=== PATIENT | female | born 1955 | race Caucasian/White ===

== ENCOUNTER → 2016-09-02 | Outpatient (CLI) | payer OTHER ==
[~2016-09-02] VITALS: Ht 162.6 cm; Wt 129.3 kg
[~2016-09-02] MED LIST: AUGMENTIN 500-1 EACH PO; AUGMENTIN 875875 MG PO; BETHANECHOL CHL50 MG PO; CEFTIN 250 MG250 MG PO; CELEXA 10 MG TA10 M1 PO; CYCLOBENZAPRINE5 MG PO; CYMBALTA60 MG PO; DILAUDID1 MG/1 ML IV PUSH; DOXYCYCLINE 10100 M2 PO; DUONEB 2.5-0.5 M3 ML INH; ENOXAPARIN40 MG/0.1 SUBQ; FLEXERIL PO; IRON325 PO; KEFLEX500 MG PO; KLONOPIN0.5 MG PO; KLOR-CON 1010 MEQ PO; LEVAQUIN 500 M500 M2 PO; LEVAQUIN PO; LYRICA 75 MG CA75 MG PO; MAG-OXIDE400 MG PO; METHADONE HCL 110 M1 PO; METHADONE HCL 110 MG PO; NORCO 5-325 TA1 EACH PO; ONDANSETRON HCL4 M2 PO; OXECTA5 MG PO; OXYCODONE HCL 55 MG PO; OXYCONTIN20 M1 PO; PENICILLIN VK250 MG PO; PERCOCET 5-3251 EACH PO; PERCOCET 7.5-31 EACH PO; PREDNISOLONE 5 M5 M1 PO; PREDNISONE 20 M20 M1 PO; PREDNISONE 5 MG5 M1 PO; PREDNISONE 5 MG5 MG PO; PROBIOTIC1 EAC1 PO; RITUXIMAB; TREANDA; TYLENOL325 MG PO; XANAX 0.25 MG0.25 MG PO; XANAX1 MG PO; [UNRECOGNIZED DRUG - OTHER]
--- NOTE | ~2016-09-02 | S ---
[facility] [place] [address] SURGICAL PATH RPT PROCEDURE Name: ROSA SCHAEFFER Room #: REG [facility] Pat.#: [id number] Admission: 09/02/16 Date of : 53 Discharge: Report #: [id number] Path Case #: [id number] PATHOLOGY REPORT COLLECTION DATE: 09/02/2016 RECEIVED DATE: 09/02/2016 SUBMITTING PHYS: Dr. Gabino Crowell OTHER PHYS: Dr. Mathew Munoz SPECIMEN(S) RECEIVED: A.Small bowel bx (forcep) B.Bx-gastritis (forcep) C.Polyp at prox ascending colon (snare) D.Rectal polyp * * * * * * * * * * * * FINAL DIAGNOSIS: A. Small bowel mucosa, small bowell, endoscopic biopsy: - Focal active inflammation along with fundic-type metaplasia, compatible with mild focal peptic duodenitis. - Negative for villous blunting, increase in intraepithelial lymphocytosis or dysplasia. B. Gastric mucosa, gastritis, endoscopic biopsy: - Mild chronic gastritis. - Negative for intestinal metaplasia or atrophy. - Negative for Helicobacter pylori. C. Polyp, at proximal ascending colon, endoscopic biopsy: - Tubular adenoma. - Negative for high grade dysplasia. D. Polyp, rectal polyp, endoscopic biopsy: - Hyperplastic polyp. - Negative for dysplasia. COMMENT: Helicobacter pylori immunohistochemical stain performed on block B1 - negative. (IUV:pit; 09/05/2016) PATHOLOGIST: Lizabeth Page M.D. REPORT ELECTRONICALLY SIGNED BY: Lizabeth Page M.D. DATE/TIME: 09/05/2016 16:10 * * * * * * * * * * * * GROSS PATHOLOGY: A. Received in formalin labeled "Rosa Schaeffer, small bowel biopsy," are 4 segments of yanes soft tissue measuring 1.0 x 0.4 x 0.2 cm in [facility] [address] [place] [address] SURGICAL PATH RPT PROCEDURE Name: ROSA SCHAEFFER [id number] Admission: 09/02/16 Date of : 53 Discharge: Report #: [id number] Path Case #: [id number] aggregate dimensions and ranging from 0.2 to 0.5 cm in maximum dimension. The specimen is submitted entirely in cassette A1. B. Received in formalin labeled "Rosa Schaeffer, biopsy gastritis," are 5 segments of yanes soft tissue measuring 1.1 x 0.3 x 0.2 cm in aggregate dimensions and ranging from 0.2 to 0.5 cm in maximum dimension. The specimen is submitted entirely in cassette B1. C. Received in formalin labeled "Rosa Schaeffer, polyp at proximal ascending colon," is a segment of yanes soft tissue measuring 0.6 cm in maximum dimension. The specimen is submitted entirely in cassette C1. D. Received in formalin labeled "Rosa Schaeffer, rectal polyp," is a segment of yanes soft tissue measuring 0.5 cm in maximum dimension. The specimen is submitted entirely in cassette D1. (KAH; 09/03/2016) CLINICAL HISTORY: Pre-op diagnosis: Abdominal pain, history of lupus, sarcoidosis Post-op diagnosis: Gastritis, colon polyp, rectal polyp, diverticulosis INITIAL CPT CODE(S): A; 42501 B; 57467, 28823 C; 51504 D; 45228 Professional services performed by [facility] at [facility] [address], [place] [address] Technical services performed by [employer] at [address] [place] [address], [address], [place] [address]. [facility] [address] [place] [address] PHONE: [phone] DIRECTOR: Rob Edwards M.D. * * * END OF REPORT * * *
== END ==
LOC: GI 06:44
DX: K62.5 Hemorrhage of anus and rectum (principal); D12.2 Benign neoplasm of ascending colon; K29.70 Gastritis, unspecified, without bleeding; D12.8 Benign neoplasm of rectum; K57.30 Diverticulosis of large intestine without perforation or abscess without bleeding; Z80.0 Family history of malignant neoplasm of digestive organs; D86.9 Sarcoidosis, unspecified
CPT/HCPCS: 62110; 62900

== ENCOUNTER 2016-10-04 19:57 | Inpatient (IN) | payer OTHER ==
[~2016-10-04] VITALS: Ht 162.6 cm; Wt 136.1 kg
--- NOTE | ~2016-10-04 | HC ---
[facility] [place] [address] CONSULTATION Name: FRANCOIS LUGO Room #: 450-P [facility] IN M.R.#: [id number] Admission: 10/04/16 Attend Phys: Gerardo Rodríguez MD Discharge: 10/06/16 Date of : 53 Report #: [id number] THIS REPORT FOR: //name// CC: Gerardo Carmona Box REASON FOR CONSULTATION: Pneumonia. IMPRESSION: 1. Pneumonia, healthcare associated. 2. Acute hypoxemic respiratory failure. 3. History of asthma. 4. Obstructive sleep apnea, intolerant to CPAP. 5. History of gastroesophageal reflux disease. 6. History of lupus and non-Hodgkin lymphoma. PLAN: Agree with current therapy, PT, OT, may try her on BiPAP again tonight. Agree with antibiotics and corticosteroids. HISTORY OF PRESENT ILLNESS: A 60-year-old female with history of sarcoid, asthma, ADRIAN, lupus, pulmonary hypertension, comes in with shortness of breath, cough and fever, had been treated with antibiotics; however, not improved. No sputum production, has had trouble with pain pumps as was a patient of Dr. Qureshi in the past. PRIOR MEDICATIONS: Included alprazolam, prednisone, bethanechol, cyclobenzaprine, and oxycodone. PAST SURGICAL HISTORY: Include right lumpectomy, hysterectomy in , Non-Hodgkin's lymphoma stage IV, cervical fusion, pain pump installation, oophorectomy in 2013. REVIEW OF SYSTEMS: Includes sarcoid lymphoma, pulmonary hypertension, asthma, ADRIAN, lupus, fibromyalgia, Raynaud's, depression, anxiety, panic, GERD, hiatal hernia, and chronic pain. ALLERGIES: VERSED. SOCIAL HISTORY: Negative tobacco, ETOH. PHYSICAL EXAMINATION: VITAL SIGNS: Temperature 98.1, pulse 90, respirations 20, BP 96/57. EYES: Negative icterus. NECK: Negative JVD. Thyroid not enlarged. LUNGS: Grossly clear. HEART: Regular. ABDOMEN: Bowel sounds present. [facility] [address] [place] [address] CONSULTATION Name: FRANCOIS LUGO Room #: [facility] IN [facility].#: [id number] Admission: 10/04/16 Attend Phys: Gerardo Rodríguez MD Discharge: 10/06/16 Date of : 53 Report #: [id number] EXTREMITIES: Showed no edema. LABORATORY DATA: Blood cultures negative thus far. Sputum negative. A pH 7.35, pCO2 of 51, pO2 of [address] PE protocol showed bilateral infiltrates. We will follow closely with you. <ELECTRONICALLY SIGNED> By: Jamin Felix MD 10/10/16 1914 [id number] 4425 Jamin Felix MD /nt
--- NOTE | ~2016-10-04 | EKG ---
[address] [place] [place] [address] ELECTROCARDIOGRAM REPORT Name: FRANCOIS LUGON Room #: 450-P ADM IN M.R.#: [id number] Admission: 10/04/16 Attend Phys: Gerardo Rodríguez MD Discharge: Date of : 53 Report #: [id number] THIS REPORT FOR: //name// [facility] ED Test Date: 2016-10-04 Test Time: 20:35:55 Pat Name: FRANCOIS LUGO Department: Room: [facility] Gender: F Process Validation Engineer: [id number] : 1955 Requested By: Avinash Lance Order Number: [id number] MD: Cliff Olson Measurements Intervals [place] Rate: 115 P: 51 NE: 151 QRS: 1 QRSD: 87 T: 15 QT: 323 QTc: 447 Interpretive Statements Sinus tachycardia Poor precordial R-wave progression Compared to ECG 08/17/2015 16:03:16 No significant change was found Electronically Signed On 10-05-2016 18:23:19 CDT by Cliff Olson [email or web address] <ELECTRONICALLY SIGNED> By: Cliff Olson MD, [facility] 10/05/16 1823 34 34 Cliff Olson MD, [facility] /EPI
[2016-10-04 20:08] VITALS: BP 131/71
[2016-10-04 20:37] LABS: HEMATOCRIT 37.5 % (37.0-47.0); HEMOGLOBIN 12.2 gm/dL (12.0-15.0); MCH 24.7 pg (26.0-34.0); MCHC 32.4 g/dL (28.0-37.0); MCV 76.2 fL (80.0-100.0); PLATELET COUNT 131 thou/uL (150-400); RBC 4.93 mil/uL (4.20-5.00); RDW 16.2 % (10.5-14.5); WBC 6.3 thou/uL (4.0-11.0)
[2016-10-04 20:38] LABS: MANUAL DIFF YES
[2016-10-04 20:44] LABS: ANION GAP 1 mmol/L (7-16); BUN 14 mg/dL (7-18); CALCIUM 9.1 mg/dL (8.5-10.1); CHLORIDE 99 mmol/L (98-107); CO2 39 mmol/L (21-32); CREATININE 0.9 mg/dL (0.6-1.0); GLUCOSE 120 mg/dL (74-106); POTASSIUM 4.1 mmol/L (3.5-5.1); SODIUM 139 mmol/L (136-145)
[2016-10-04 20:54] LABS: ALBUMIN 3.3 g/dL (3.4-5.0); ALKALINE PHOSPHATASE 210 U/L (46-116); SGOT 49 U/L (15-37); SGPT 29 U/L (30-65); TOTAL PROTEIN 7.5 g/dL (6.4-8.2); TROPONIN-I < 0.04 ng/mL (<0.04-0.07)
[2016-10-04 21:08] LABS: ABSOLUTE NEUTROPHILS 5.2 thou/uL (1.4-8.2); LARGE PLATELETS FEW; TOTAL CELL COUNT 100
[2016-10-04 21:09] LABS: ANISOCYTOSIS SLIGHT
[2016-10-04 21:24] LABS: ABG SAMPLE TYPE ARTERIAL; BE(vivo) 5.3 mmol/L (-2 to +3); HCO3 30.8 mmol/L (22.0-26.0); LACTATE 1.97 mmol/L (0.5-2.0); O2(CT) 15.9 mL/dL (15.0-23.0); O2Hb 86.8 % (92.0-98.0); PCO2 48.5 mmHg (35.0-45.0); sO2 87.7 % (92.0-98.0); tCO2 32.2 mmol/L (24.0-30.0)
[2016-10-04 21:25] LABS: PO2 52.9 mmHg (80.0-100.0); STICK SITE L.RADIAL
[2016-10-04 21:46] LABS: URINE BILIRUBIN NEGATIVE (Negative); URINE BLOOD NEGATIVE (Negative); URINE COLOR YELLOW; URINE GLUCOSE-RANDOM* NEGATIVE (Negative); URINE KETONES NEGATIVE (Negative); URINE LEUKOCYTES-REFLEX NEGATIVE (Negative); URINE PROTEIN (DIPSTICK) TRACE (Negative)
[2016-10-04 23:39] VITALS: BP 123/54
[2016-10-05 00:33] VITALS: BP 127/59
[2016-10-05 04:26] VITALS: BP 131/63
[2016-10-05 07:07] VITALS: BP 140/71
[2016-10-05 07:34] LABS: ABG SAMPLE TYPE ARTERIAL; BE(vivo) 1.5 mmol/L (-2 to +3); HCO3 27.8 mmol/L (22.0-26.0); LACTATE 1.43 mmol/L (0.5-2.0); O2(CT) 17.7 mL/dL (15.0-23.0); O2Hb 95.5 % (92.0-98.0); PCO2 51.1 mmHg (35.0-45.0); PO2 90.8 mmHg (80.0-100.0); pH 7.354 (7.360-7.450); sO2 96.5 % (92.0-98.0); tCO2 29.4 mmol/L (24.0-30.0)
[2016-10-05 07:35] LABS: STICK SITE R.RADIAL
[2016-10-05 11:17] VITALS: BP 107/47
[2016-10-05 15:27] VITALS: BP 96/57
[2016-10-05 19:44] VITALS: BP 99/58
[2016-10-06 01:30] VITALS: BP 113/52
[2016-10-06 03:49] VITALS: BP 144/72
[2016-10-06 06:13] LABS: HEMATOCRIT 31.2 % (37.0-47.0); HEMOGLOBIN 10.3 gm/dL (12.0-15.0); MCHC 32.9 g/dL (28.0-37.0); MCV 76.1 fL (80.0-100.0); RBC 4.1 mil/uL (4.20-5.00); RDW 16.6 % (10.5-14.5); WBC 4.2 thou/uL (4.0-11.0)
[2016-10-06 06:33] LABS: ALBUMIN 2.4 g/dL (3.4-5.0); CREATININE 0.9 mg/dL (0.6-1.0); POTASSIUM 3.3 mmol/L (3.5-5.1); TOTAL BILIRUBIN 1.1 mg/dL (<0.1-1.0)
[2016-10-06 07:11] VITALS: BP 138/70
[2016-10-06] MEDS ORDERED: OXYCODONE HCL 55 MG PO (09:24)
[2016-10-06] MEDS ORDERED: PREDNISONE 20 M20 M1 PO (09:25)
[2016-10-06] MEDS ORDERED: AUGMENTIN 875875 MG PO (09:26)
[2016-10-06 11:42] VITALS: BP 118/60
[2016-10-06 15:06] VITALS: BP 118/60
[2016-10-11 22:09] LABS: INFLUENZA B Negative (Negative); METAPNEUMOVIRUS Negative (Negative)
== END 2016-10-06 16:31 | disposition home or self-care (01) | DRG 177 ==
LOC: ER 19:57 → 4W 23:05 → EROBS 23:05 → 4W 10-05 00:02
PROVIDERS: Internal Medicine Pulmonary Disease; Nurse Practitioner Family; Physician Assistant
PROC: 5A09457 Assistance with Respiratory Ventilation, 24-96 Consecutive Hours, Continuous Positive Airway Pressure (ICD-10-PCS; principal; 2016-10-04)
DX: J69.0 Pneumonitis due to inhalation of food and vomit (principal); J96.01 Acute respiratory failure with hypoxia; Z68.43 Body mass index [BMI] 50.0-59.9, adult; I27.2 Other secondary pulmonary hypertension; M32.9 Systemic lupus erythematosus, unspecified; D86.9 Sarcoidosis, unspecified; J45.909 Unspecified asthma, uncomplicated; M79.7 Fibromyalgia; F32.9 Major depressive disorder, single episode, unspecified; F41.0 Panic disorder [episodic paroxysmal anxiety]; K21.9 Gastro-esophageal reflux disease without esophagitis; E66.9 Obesity, unspecified; G47.33 Obstructive sleep apnea (adult) (pediatric); Z85.3 Personal history of malignant neoplasm of breast; Z99.81 Dependence on supplemental oxygen; Z85.42 Personal history of malignant neoplasm of other parts of uterus; Z85.72 Personal history of non-Hodgkin lymphomas; Z90.710 Acquired absence of both cervix and uterus; Z88.8 Allergy status to other drugs, medicaments and biological substances; Z79.52 Long term (current) use of systemic steroids; Z79.899 Other long term (current) drug therapy; Z98.1 Arthrodesis status; Z90.721 Acquired absence of ovaries, unilateral
CPT/HCPCS: 10045

== ENCOUNTER 2016-11-20 19:54 | Emergency (ER) | payer OTHER ==
[~2016-11-20] VITALS: Ht 162.6 cm; Wt 140.6 kg
--- NOTE | ~2016-11-20 | EKG ---
[address] [address] ELECTROCARDIOGRAM REPORT Name: FRANCOIS LUGO [id number] Admission: 11/20/16 Attend Phys: Discharge: 11/20/16 Date of : 53 Report #: [id number] THIS REPORT FOR: //name// [facility] ED Test Date: 2016-11-20 Test Time: 21:29:25 Pat Name: FRANCOIS LUGO Department: Room: Gender: F Lamp Shades Supervisor: LUCIA : 1955 Requested By: Paul Rajan Order Number: [id number] MD: Ernst Merino Measurements Intervals [place] Rate: 105 P: 50 [place]: 151 QRS: 25 QRSD: 92 T: 10 QT: 351 QTc: 465 Interpretive Statements Sinus tachycardia Compared to ECG 10/04/2016 20:35:55 No significant changes Electronically Signed On 11-21-2016 14:04:49 CDT by Ernst Merino [email or web address] <ELECTRONICALLY SIGNED> By: Ernst Merino MD 11/21/16 1404 2129 28 Ernst Merino MD /VIOLETA
[2016-11-20 20:53] LABS: HEMATOCRIT 31.6 % (37.0-47.0); HEMOGLOBIN 10.5 gm/dL (12.0-15.0); MCH 25.3 pg (26.0-34.0); MCHC 33.4 g/dL (28.0-37.0); MCV 75.8 fL (80.0-100.0); PLATELET COUNT 141 thou/uL (150-400); RBC 4.17 mil/uL (4.20-5.00); RDW 17.7 % (10.5-14.5); WBC 5.2 thou/uL (4.0-11.0)
[2016-11-20 20:58] LABS: MANUAL DIFF YES
[2016-11-20 20:59] LABS: ANION GAP 1 mmol/L (7-16); BUN 7 mg/dL (7-18); CALCIUM 9.1 mg/dL (8.5-10.1); CHLORIDE 99 mmol/L (98-107); CO2 37 mmol/L (21-32); CREATININE 0.9 mg/dL (0.6-1.0); GLUCOSE 123 mg/dL (74-106); POTASSIUM 4.1 mmol/L (3.5-5.1); SODIUM 137 mmol/L (136-145)
[2016-11-20 21:07] LABS: ALBUMIN 3.1 g/dL (3.4-5.0); ALKALINE PHOSPHATASE 166 U/L (46-116); MAGNESIUM 1.9 mg/dL (1.8-2.4); SGOT 26 U/L (15-37); SGPT 20 U/L (30-65); TOTAL BILIRUBIN 0.7 mg/dL (<0.1-1.0); TROPONIN-I < 0.04 ng/mL (<0.04-0.07)
[2016-11-20 21:18] LABS: ABSOLUTE NEUTROPHILS 4.3 thou/uL (1.4-8.2); ANISOCYTOSIS 1+; TOTAL CELL COUNT 100
[2016-11-20] MEDS ORDERED: LEVAQUIN 500 M500 M1 PO (21:59)
[2016-11-20] MEDS ORDERED: PREDNISONE 20 M20 MG PO (21:59)
== END 2016-11-20 22:43 | disposition home or self-care (01) ==
LOC: ER 19:54
PROVIDERS: Emergency Medicine
DX: J44.0 Chronic obstructive pulmonary disease with (acute) lower respiratory infection (principal); J20.9 Acute bronchitis, unspecified; K21.9 Gastro-esophageal reflux disease without esophagitis; F41.9 Anxiety disorder, unspecified; F31.9 Bipolar disorder, unspecified; M32.9 Systemic lupus erythematosus, unspecified; I27.2 Other secondary pulmonary hypertension; Z85.3 Personal history of malignant neoplasm of breast; Z85.42 Personal history of malignant neoplasm of other parts of uterus; Z90.710 Acquired absence of both cervix and uterus; Z88.4 Allergy status to anesthetic agent

== ENCOUNTER 2016-12-18 18:27 | Inpatient (IN) | payer OTHER ==
[~2016-12-18] VITALS: Ht 162.6 cm; Wt 139.4 kg
--- NOTE | ~2016-12-18 | EKG ---
[address] [address] ELECTROCARDIOGRAM REPORT Name: BRITTNEYNERISSA MORELASHVIN GODFREY Room #: 170-11 ADM IN M.R.#: [id number] Admission: 12/18/16 Attend Phys: Gerardo Rodríguez MD Discharge: Date of : 53 Report #: [id number] THIS REPORT FOR: //name// [facility] ED Test Date: 2016-12-18 Test Time: 19:13:10 Pat Name: FRANCOIS LUGO Department: Room: 170 Gender: F Spine Surgeon: ANANDA : 1955 Requested By: Paul Rajan Order Number: [id number] MD: Ernst Merino Measurements Intervals [place] Rate: 112 P: 43 [place]: 140 QRS: 11 QRSD: 90 T: 17 QT: 327 QTc: 447 Interpretive Statements Sinus tachycardia Compared to ECG 11/20/2016 21:29:25 No significant changes Electronically Signed On 12-18-2016 20:41:57 CDT by Ernst Merino [email or web address] <ELECTRONICALLY SIGNED> By: Ernst Merino MD 12/18/162040 12 12 Ernst Merino MD /VIOLETA
[~2016-12-18 18:27] MED LIST changes: +LEVAQUIN 500 M500 M1 PO; +PREDNISONE 20 M20 MG PO
[2016-12-18 18:38] VITALS: BP 157/91
[2016-12-18 19:30] LABS: RDW 16.5 % (10.5-14.5)
[2016-12-18 19:32] LABS: HEMATOCRIT 34.3 % (37.0-47.0); HEMOGLOBIN 11.2 gm/dL (12.0-15.0); MCH 24.6 pg (26.0-34.0); MCHC 32.7 g/dL (28.0-37.0); MCV 75.4 fL (80.0-100.0); PLATELET COUNT 133 thou/uL (150-400); RBC 4.55 mil/uL (4.20-5.00)
[2016-12-18 19:34] LABS: MANUAL DIFF YES
[2016-12-18 19:43] LABS: ANION GAP 3 mmol/L (7-16); BUN 10 mg/dL (7-18); CALCIUM 9.3 mg/dL (8.5-10.1); CHLORIDE 97 mmol/L (98-107); CO2 37 mmol/L (21-32); CREATININE 0.8 mg/dL (0.6-1.0); GLUCOSE 134 mg/dL (74-106); POTASSIUM 4.3 mmol/L (3.5-5.1); SODIUM 137 mmol/L (136-145)
[2016-12-18 19:49] LABS: URINE BILIRUBIN NEGATIVE (Negative); URINE BLOOD NEGATIVE (Negative); URINE COLOR YELLOW; URINE GLUCOSE-RANDOM* NEGATIVE (Negative); URINE KETONES NEGATIVE (Negative); URINE LEUKOCYTES-REFLEX NEGATIVE (Negative); URINE PROTEIN (DIPSTICK) TRACE (Negative); URINE SPECIFIC GRAVITY 1.015 (1.003-1.035)
[2016-12-18 19:52] LABS: ALBUMIN 3.2 g/dL (3.4-5.0); ALKALINE PHOSPHATASE 164 U/L (46-116); MAGNESIUM 1.9 mg/dL (1.8-2.4); SGOT 41 U/L (15-37); SGPT 21 U/L (30-65); TOTAL BILIRUBIN 0.8 mg/dL (<0.1-1.0); TOTAL PROTEIN 6.9 g/dL (6.4-8.2); TROPONIN-I < 0.04 ng/mL (<0.04-0.07)
[2016-12-18 20:07] LABS: SSA (PROTEIN CONFIRMATORY) TRACE (APPROX. 5) mg/dL (Negative)
[2016-12-18 20:19] LABS: ABSOLUTE NEUTROPHILS 4.2 thou/uL (1.4-8.2); ANISOCYTOSIS SLIGHT; LARGE PLATELETS OCCASIONAL; POIKILOCYTOSIS SLIGHT; TOTAL CELL COUNT 100
[2016-12-18 20:58] VITALS: BP 121/53
[2016-12-18 21:06] LABS: ABG SAMPLE TYPE VENOUS; BE(vivo) 6.4 mmol/L (-2 to +3); HCO3 31.4 mmol/L (22.0-26.0); LACTATE 2.03 mmol/L (0.5-2.0); O2(CT) 16.2 mL/dL (15.0-23.0); O2Hb VENOUS 96.1 (65.0-85.0); PCO2 VENOUS 46.7 mmHg (41.0-51.0); PO2 VENOUS 170.1 mmHg (35.0-45.0); sO2 VENOUS 99.2 % (65.0-85.0); tCO2 32.8 mmol/L (24.0-30.0)
[2016-12-18 22:40] VITALS: BP 134/60
[2016-12-19 00:05] VITALS: BP 113/64
[2016-12-19 01:15] LABS: HEMATOCRIT 32.2 % (37.0-47.0); HEMOGLOBIN 10.5 gm/dL (12.0-15.0); MCH 24.6 pg (26.0-34.0); MCHC 32.6 g/dL (28.0-37.0); MCV 75.3 fL (80.0-100.0); RBC 4.27 mil/uL (4.20-5.00); RDW 16.6 % (10.5-14.5); WBC 3.5 thou/uL (4.0-11.0)
[2016-12-19 01:21] LABS: CALCIUM 8.9 mg/dL (8.5-10.1); CREATININE 0.9 mg/dL (0.6-1.0); POTASSIUM 3.9 mmol/L (3.5-5.1)
[2016-12-19 05:00] VITALS: BP 122/61
[2016-12-19 08:22] VITALS: BP 133/55
[2016-12-19] MEDS ORDERED: LEVAQUIN 500 M500 M2 PO (09:13)
[2016-12-19] MEDS ORDERED: MEDROL DOSPAK21 TA1 PO (09:13)
[2016-12-19] MEDS ORDERED: PNEUMOVAX25 MCG/0.5 IM (10:15)
[2016-12-19 10:44] VITALS: BP 133/55
== END 2016-12-19 12:00 | disposition home or self-care (01) | DRG 871 ==
LOC: ER 18:27 → 3W 20:33 → EROBS 20:33 → 3W 21:12 → ENTRNSPT 12-19 11:47 → EDTRNSPTSTS 12-19 11:52 → 3W 12-19 12:00
PROVIDERS: Emergency Medicine; Nurse Practitioner Family
DX: A41.9 Sepsis, unspecified organism (principal); J18.9 Pneumonia, unspecified organism; J44.0 Chronic obstructive pulmonary disease with (acute) lower respiratory infection; E87.2 Acidosis; C85.90 Non-Hodgkin lymphoma, unspecified, unspecified site; M32.9 Systemic lupus erythematosus, unspecified; I27.20 Pulmonary hypertension, unspecified; F32.9 Major depressive disorder, single episode, unspecified; F41.9 Anxiety disorder, unspecified; F41.0 Panic disorder [episodic paroxysmal anxiety]; K21.9 Gastro-esophageal reflux disease without esophagitis; G89.4 Chronic pain syndrome; M79.7 Fibromyalgia; G47.33 Obstructive sleep apnea (adult) (pediatric); Z79.899 Other long term (current) drug therapy; Z88.8 Allergy status to other drugs, medicaments and biological substances
CPT/HCPCS: 10080

== ENCOUNTER 2017-02-20 09:49 | Inpatient (IN) | payer OTHER ==
[~2017-02-20] VITALS: Ht 162.6 cm; Wt 138.8 kg
--- NOTE | ~2017-02-20 | CNG ---
[facility] [address] [place] [address] CYTO-NONGYN REPORT PROCEDURE Name: ROSA SCHAEFFERN Room #: 428-P ADM IN M.R.#: [id number] Admission: 02/20/17 Date of : 53 Discharge: Report #: [id number] Path Case #: [id number] CYTOPATHOLOGY REPORT COLLECTION DATE: 02/20/2017 RECEIVED DATE: 02/21/2017 SUBMITTING PHYS: Dr. Jamin Felix OTHER PHYS: Dr. Rohit Munoz CLINICAL HISTORY: Acute on chronic respiratory failure SPECIMEN(S) RECEIVED: A.Sputum * * * * * * * * * * * * FINAL DIAGNOSIS: A. Sputum: - No malignant cells identified. Few pulmonary macrophages in the background of inflammatory cells. PATHOLOGIST: Robi Marie M.D. REPORT ELECTRONICALLY SIGNED BY: Robi Marie M.D. DATE/TIME: 02/22/2017 11:19 * * * * * * * * * * * * GROSS PATHOLOGY: A. Sputum: The specimen is submitted unfixed, labeled "Rosa Schaeffer". Received by the Cytology Department is less than .05 mL of thick cloudy colorless fluid. One ThinPrep slide was prepared. ([id number]) ELECTRIC LOCOMOTIVE CRANE OPERATOR(S): FUAD Gutierrez(ASCP) INITIAL CPT CODE(S): A; 66664 Professional services performed by [facility] at [facility] [address], [place] [address] Technical services performed by [employer], [address], [place] [address] [facility] [address], [address] [place] [address] [facility] [address] [place] [address] CYTO-NONGYN REPORT PROCEDURE Name: ROSA SCHAEFFER Room #: 428-P ADM IN M.R.#: [id number] Admission: 02/20/17 Date of : 53 Discharge: Report #: [id number] Path Case #: [id number] PHONE: [phone] DIRECTOR: Rob Edwards M.D. * * * END OF REPORT * * *
--- NOTE | ~2017-02-20 | HC ---
[facility] [place] [address] CONSULTATION Name: FRANCOIS LUGO Room #: 428-P [facility] IN M.R.#: [id number] Admission: 02/20/17 Attend Phys: Rohit Mcmullen DO Discharge: Date of : 53 Report #: [id number] THIS REPORT FOR: //name// CC: Rohit Munoz DATE OF SERVICE: 02/20/2017 HISTORY OF PRESENT ILLNESS: The patient is a 61-year-old white woman evaluated in the emergency room on the date of admission with a history of increasing shortness of breath and abnormal chest x-rays revealing increasing right pulmonary infiltrate. The patient reported having some trouble breathing 3-4 days prior to admission and some cough, actually now productive of some sputum. The patient recently treated for pneumonia, undetermined organism in an immunosuppressed host, she was advised to be on treatment with Bactrim-DS 2 tablets t.i.d. for a total of 14-21 days. She tells me the pharmacist told her to take Bactrim-DS 1 b.i.d. At present, no nausea, vomiting, diarrhea, or genitourinary symptoms. PAST MEDICAL HISTORY: Right breast cancer, lumpectomy. Uterine cancer, hysterectomy in 1986. Non-Hodgkin lymphoma, on chemotherapy, on remission, and receiving Rituxan. Sarcoidosis. Pulmonary hypertension. Bronchial asthma. Autoimmune process undetermined etiology, being followed by Dr. Munoz. Obstructive sleep apnea. Fibromyalgia. Depression, anxiety. Morbid obesity. DRUG ALLERGIES: VERSED. MEDICATIONS: She is currently on treatment with bethanechol, budesonide, enoxaparin, cyclobenzaprine, pregabalin, meropenem 500 mg IV every 6 hours, Levaquin 500 mg IV daily, I discontinued Bactrim DS and oral prednisone, she is on methylprednisolone 40 mg IV every 8 hours. She is also on albuterol inhalation treatments, p.r.n. oxycodone and p.r.n. alprazolam. SOCIAL HISTORY: See H and P, old records. FAMILY HISTORY: See H and P, old records. REVIEW OF SYSTEMS: Essentially noncontributory besides what has been stated above. PHYSICAL EXAMINATION: GENERAL: Overweight woman, not toxic looking. VITAL SIGNS: Afebrile, temperature 98.8, pulse 109, respirations 24, BP 161/96, height 5 feet 4 inches, weight 306 pounds, O2 saturation 96% on 3 liters oxygen nasal cannula. HEENMT: Head normocephalic, atraumatic. Pupils are reactive. Mouth, no [address] [address] CONSULTATION Name: FRANCOIS LUGO Room #: [facility] IN M.R.#: [id number] Admission: 02/20/17 Attend Phys: Rohit Mcmullen DO Discharge: Date of : 53 Report #: [id number] thrush. NECK: Supple. No thyromegaly. LUNGS: Decreased breath sounds, few crackles, right lung base posteriorly. HEART: S1, S2. No gallop or murmur. ABDOMEN: Obese, soft, no masses or megaly, no abnormal tenderness. PELVIC: Deferred. RECTAL: Deferred. EXTREMITIES: No clubbing or cyanosis. NEUROLOGIC: Grossly within normal limits. LABORATORY DATA: Sodium 138, potassium 4.6, BUN 14, creatinine 0.8, alkaline phosphatase elevated 203 per L, albumin low at 2.9 g/dL. Troponin normal. NT-proBNP normal. C-reactive protein significantly elevated at 103.1 mg/L and previously in November 2014, was 242.3 mg/L. WBC remains low at 2400, hemoglobin 11.5 g/dL, and platelets 141,000. The white blood cell count differential revealed 65% segmented neutrophils and 16% lymphocytes. Sedimentation rate elevated at 74 mm per hour. MICROBIOLOGY DATA: Sputum Gram stain and cultures are pending at the time of this dictation. The urine is negative for Streptococcus pneumoniae and legionella antigens. RADIOLOGY EVALUATION: A chest x-ray revealed increasing right basilar pulmonary infiltrate compared to previously as well as cardiomegaly. ASSESSMENT: 1. Immunosuppressed host. 2. Sarcoidosis. 3. Pulmonary hypertension. 4. Worsening right lung pulmonary infiltrate. 5. Obesity. 6. History of lymphoma, sarcoidosis, on treatment with Rituxan every 2-3 weeks. 7. Leukopenia and thrombocytopenia. SUGGESTIONS: I have initially suggested obtain an ESR and CRP, which have proven to be elevated. We will obtain an MRSA screen. I have elected to discontinue Bactrim since we have treated her for possible pneumocystis pneumonia. I will treat her now with a combination of Levaquin 500 mg IV daily and meropenem 500 mg IV every [address] Felix and Dr. Mcmullen, thank you for requesting my suggestions in the care of your patient. <ELECTRONICALLY SIGNED> By: Monster Merino MD 02/21/17 1431 1117 1414 Monster Merino MD /nt
--- NOTE | ~2017-02-20 | EKG ---
[address] [place] [address] ELECTROCARDIOGRAM REPORT Name: FRANCOIS LUGO Room #: 428-P ADM IN M.R.#: [id number] Admission: 02/20/17 Attend Phys: Rohit Mcmullen DO Discharge: Date of : 53 Report #: [id number] THIS REPORT FOR: //name// [facility] ED Test Date: 2017-02-20 Test Time: 10:43:07 Pat Name: FRANCOIS LUGO Department: Room: [facility] Gender: F Nuclear Technician: tirso : 1955 Requested By: Allison Saez Order Number: [id number] MD: Cliff Olson Measurements Intervals [place] Rate: 100 P: 47 CT: 134 QRS: 31 QRSD: 84 T: 29 QT: 333 QTc: 430 Interpretive Statements Sinus tachycardia Otherwise no significant abnormality Compared to ECG 12/29/2016 12:00:50 No significant changes Electronically Signed On 02-21-2017 8:25:22 HEALTH SCIENCE WRITER by Cliff Olson [email or web address] <ELECTRONICALLY SIGNED> By: Cliff Olson MD, [facility] 02/21/17 0825 1043 1043 Cliff Olson MD, [facility] /EPI
--- NOTE | ~2017-02-20 | HC ---
[facility] [place] [address] CONSULTATION Name: FRANCOIS LUGO Room #: 428-P ADM IN M.R.#: [id number] Admission: 02/20/17 Attend Phys: Rohit Mcmullen DO Discharge: Date of : 53 Report #: [id number] THIS REPORT FOR: //name// CC: Nirmala Olson MD [facility] Rohit Donohue MD PHYSICIAN REQUESTING CONSULT: Nirmala Felix MD REASON FOR CONSULTATION: History of lymphoma and leukopenia. HISTORY OF PRESENT ILLNESS: The patient is a 61-year-old female that taken care of for about 7 years. 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 Over the years, she has had a number of different therapies with fludarabine, Cytoxan, Rituxan and also Rituxan on a maintenance schedule. Her most recent PET scan I believe was in October of this year and appeared to be remission and she continued on maintenance of rituximab. The patient about a week long has exacerbation of shortness of air, was may be cough, but more than just felt more winded than usual. She usually uses 3 liters of oxygen, this was up to 3.5. She also run a fever up to about 101. She does run a low grade fever at home, but this was higher than usual. She reports that her family including her had not been sick with any unusual lately. She denies any bleeding difficulties, any new arm or leg swelling although she does have some chronic leg swelling. Denies any nausea, vomiting, blood in her urine or stool, any new constipation or diarrhea, new skin rash, new heat or cold intolerance, bloody noses or vision difficulties. PAST MEDICAL HISTORY: Notable for the marginal zone lymphoma originally diagnosed in 2009 and was treated with FCR, which was completed 11/2009 at a later date in 2013, she had Treanda and rituximab and then in 09/2014 she once again had FCR again. Lately, she has been on rituximab weekly for 4 weeks once every 6 months. She also has a history of sarcoidosis followed by Dr. Mathew Munoz, with cutaneous skin involvement. Also, history of pulmonary hypertension, has a history of breast cancer in 1984, history of iron deficiency due to occult blood loss, also history of uterine cancer, also history of fibromyalgia and lupus erythematosus. MEDICATIONS: At this time include bethanechol 50 mg t.i.d. p.o., budesonide 0.5 mg respiratory therapy b.i.d., Lovenox 40 mg at bedtime, cyclobenzaprine 10 mg at bedtime, pregabalin 75 mg at bedtime, ipratropium and albuterol 3 mL respiratory q. 4h. inhalation, meropenem 500 mg q. 6h., levofloxacin q. 24, albuterol 2.5 mg respiratory q. 4h., oxycodone 10 mg q. 4 p.r.n., Xanax 1 [address] q[address] [address] CONSULTATION Name: FRANCOIS LUGO Room #: 428-P [facility] IN M.R.#: [id number] Admission: 02/20/17 Attend Phys: Rohit Mcmullen DO Discharge: Date of : 53 Report #: [id number] h. p.r.n., methylprednisolone 40 mg q. 8, Bactrim 2 tabs t.i.d., albuterol again. PHYSICAL EXAMINATION: GENERAL: The patient appears her stated age. VITAL SIGNS: Current height is 5 feet 4 inches, 162.6 cm, weight is 306 pounds, which is 138.8 kilograms. Blood pressure is 101/51, O2 sat currently of 98, respirations 16, pulse is 80, temperature 98.3. MOOD: The patient was alert and pleasant and conversant. NEUROLOGIC: Face is symmetrical, moving all extremities. Oropharynx is clear. LYMPHATICS: No enlarged lymph nodes in the supraclavicular, cervical, axillary or inguinal region. ABDOMEN: Obese. No organomegaly. EXTREMITIES: Without clubbing, cyanosis. There is some trace edema. SKIN: Does have some changes with sarcoid but it is better than usual. LABORATORY DATA: Here show a BUN of 9 and a creatinine of 0.8, glucose 111. Albumin 2.9. C-reactive protein 103.1, white count 2.4, hemoglobin 11.5, MCV 75.8, platelets of 141, ANC of 1.6. Cloud test negative. Influenza panel pending. UA fairly unremarkable. Chest x-ray had a question of right middle and lower lobe infiltrate versus atelectasis. ASSESSMENT AND PLAN: 1. History lymphoma, currently appears to be in remission, continues with maintenance rituximab. We will check quantitative IgG level. 2. Pneumonitis, agree with cultures, which have been negative, viral panel is still completion pending. Continue with meropenem and levofloxacin. 3. Chronic obstructive pulmonary disease, continues inhalation therapy and steroids. 4. Pulmonary hypertension. Defer to others. 5. Urinary difficulties, bethanechol. 6. Chronic back pain, I believe she still has pain pump, we will need to clarify, also continues on her Oxycodone p.r.n. 7. Mood disorder. Continue Xanax. 8. Iron deficiency. We will most likely consider IV iron replacement as an outpatient. 9. History of breast cancer and uterine cancer, not recurrent. We will follow with you. <ELECTRONICALLY SIGNED> By: Farooq Frye MD 02/22/17 0718 0743 0907 Farooq Frye MD /nt
[~2017-02-20 09:49] MED LIST changes: +ALBUTEROL2.5 MG/0.5 INH; +BACTRIM DS TAB1 EACH PO; +MEDROL DOSPAK21 TA1 PO; +PNEUMOVAX25 MCG/0.5 IM
[2017-02-20 09:54] VITALS: BP 161/96
[2017-02-20] MEDS ORDERED: DILAUDID 2 MG TA2 MG IMPLANT (10:38)
[2017-02-20 10:50] LABS: HEMATOCRIT 35.3 % (37.0-47.0); HEMOGLOBIN 11.5 gm/dL (12.0-15.0); MCH 24.6 pg (26.0-34.0); MCHC 32.5 g/dL (28.0-37.0); MCV 75.8 fL (80.0-100.0); PLATELET COUNT 141 thou/uL (150-400); RBC 4.66 mil/uL (4.20-5.00); RDW 16.6 % (10.5-14.5); WBC 2.4 thou/uL (4.0-11.0)
[2017-02-20 10:52] LABS: MANUAL DIFF YES
[2017-02-20 10:58] LABS: ABG SAMPLE TYPE ARTERIAL; BE(vivo) 9.4 mmol/L (-2 to +3); HCO3 35.2 mmol/L (22.0-26.0); LACTATE 0.76 mmol/L (0.5-2.0); O2Hb 94.7 % (92.0-98.0); PCO2 53.8 mmHg (35.0-45.0); PO2 79.6 mmHg (80.0-100.0); STICK SITE R.RADIAL; pH 7.434 (7.360-7.450); sO2 95.9 % (92.0-98.0); tCO2 36.9 mmol/L (24.0-30.0)
[2017-02-20 10:59] LABS: ANION GAP 4 mmol/L (7-16); BUN 14 mg/dL (7-18); CALCIUM 9.3 mg/dL (8.5-10.1); CHLORIDE 99 mmol/L (98-107); CO2 35 mmol/L (21-32); CREATININE 0.8 mg/dL (0.6-1.0); GLUCOSE 100 mg/dL (74-106); POTASSIUM 4.6 mmol/L (3.5-5.1); SODIUM 138 mmol/L (136-145)
[2017-02-20 11:08] LABS: ALBUMIN 2.9 g/dL (3.4-5.0); ALKALINE PHOSPHATASE 203 U/L (46-116); SGOT 26 U/L (15-37); SGPT 32 U/L (30-65); TOTAL BILIRUBIN 0.7 mg/dL (<0.1-1.0); TOTAL PROTEIN 7.3 g/dL (6.4-8.2); TROPONIN-I < 0.04 ng/mL (<0.06)
[2017-02-20 11:29] LABS: ABSOLUTE NEUTROPHILS 1.6 thou/uL (1.4-8.2); ANISOCYTOSIS 1+; TOTAL CELL COUNT 100
[2017-02-20 12:22] LABS: URINE BILIRUBIN NEGATIVE (Negative); URINE BLOOD TRACE (Negative); URINE COLOR YELLOW; URINE GLUCOSE-RANDOM* NEGATIVE (Negative); URINE KETONES NEGATIVE (Negative); URINE NITRITE NEGATIVE (Negative); URINE PROTEIN (DIPSTICK) NEGATIVE (Negative)
[2017-02-20 12:44] VITALS: BP 143/86
[2017-02-20 14:30] VITALS: BP 134/76
[2017-02-20 19:51] VITALS: BP 106/58
[2017-02-21 05:18] VITALS: BP 101/51
[2017-02-21 08:00] VITALS: BP 110/64
[2017-02-21 16:00] VITALS: BP 128/69
[2017-02-21 20:27] VITALS: BP 144/61
[2017-02-22 03:47] VITALS: BP 134/71
[2017-02-22 06:07] LABS: HEMATOCRIT 33.8 % (37.0-47.0); HEMOGLOBIN 10.9 gm/dL (12.0-15.0); MCH 24.3 pg (26.0-34.0); MCHC 32.2 g/dL (28.0-37.0); MCV 75.3 fL (80.0-100.0); PLATELET COUNT 149 thou/uL (150-400); RBC 4.49 mil/uL (4.20-5.00); RDW 16.5 % (10.5-14.5)
[2017-02-22 06:08] LABS: MANUAL DIFF YES
[2017-02-22 06:09] LABS: WBC 1.8 thou/uL (4.0-11.0)
[2017-02-22 06:15] LABS: CALCIUM 9.3 mg/dL (8.5-10.1); CREATININE 0.7 mg/dL (0.6-1.0); POTASSIUM 4.3 mmol/L (3.5-5.1)
[2017-02-22 07:47] LABS: TOTAL CELL COUNT 50
[2017-02-22 07:48] LABS: ANISOCYTOSIS 1+; MICROCYTES 1+
[2017-02-22 08:00] VITALS: BP 119/60
[2017-02-22 16:00] VITALS: BP 117/50
[2017-02-22 20:48] VITALS: BP 156/79
[2017-02-23 05:00] VITALS: BP 150/63
[2017-02-23 08:00] VITALS: BP 148/78
[2017-02-23 11:27] VITALS: BP 148/78
[2017-02-23] MEDS ORDERED: LEVAQUIN 500 M500 M2 PO (11:49)
[2017-02-23 11:50] VITALS: BP 116/68
[2017-02-23] MEDS ORDERED: AUGMENTIN 875-1 EACH (11:51)
[2017-02-25 03:13] LABS: INFLUENZA B Negative (Negative); METAPNEUMOVIRUS Negative (Negative)
== END 2017-02-23 12:26 | disposition home or self-care (01) | DRG 871 ==
LOC: ER 09:49 → 4E 11:40 → EROBS 11:40 → 4E 14:00 → ENTRNSPT 02-23 11:55 → EDTRNSPTSTS 02-23 11:57 → 4E 02-23 12:26
PROVIDERS: Family Medicine; Internal Medicine Pulmonary Disease; Nurse Practitioner Family
PROC: 5A09357 Assistance with Respiratory Ventilation, Less than 24 Consecutive Hours, Continuous Positive Airway Pressure (ICD-10-PCS; principal; 2017-02-21)
DX: A41.9 Sepsis, unspecified organism (principal); J96.21 Acute and chronic respiratory failure with hypoxia; J18.9 Pneumonia, unspecified organism; J96.22 Acute and chronic respiratory failure with hypercapnia; J44.0 Chronic obstructive pulmonary disease with (acute) lower respiratory infection; C85.90 Non-Hodgkin lymphoma, unspecified, unspecified site; D61.818 Other pancytopenia; Z68.43 Body mass index [BMI] 50.0-59.9, adult; J44.1 Chronic obstructive pulmonary disease with (acute) exacerbation; F32.9 Major depressive disorder, single episode, unspecified; F41.1 Generalized anxiety disorder; K21.9 Gastro-esophageal reflux disease without esophagitis; D86.9 Sarcoidosis, unspecified; I27.20 Pulmonary hypertension, unspecified; M32.9 Systemic lupus erythematosus, unspecified; M54.9 Dorsalgia, unspecified; G89.29 Other chronic pain; M79.7 Fibromyalgia; D50.9 Iron deficiency anemia, unspecified; G47.33 Obstructive sleep apnea (adult) (pediatric); E66.01 Morbid (severe) obesity due to excess calories; Z85.118 Personal history of other malignant neoplasm of bronchus and lung; Z88.8 Allergy status to other drugs, medicaments and biological substances; Z79.899 Other long term (current) drug therapy; Z85.3 Personal history of malignant neoplasm of breast; Z85.42 Personal history of malignant neoplasm of other parts of uterus; Z90.710 Acquired absence of both cervix and uterus; Z87.01 Personal history of pneumonia (recurrent)
CPT/HCPCS: 10183

== ENCOUNTER → 2017-05-01 | Outpatient (CLI) | payer OTHER ==
[~2017-05-01] MED LIST changes: +ACETAMINOPHEN325 M1 PO; +ACIDOPHILUS1 EAC4 PO; +AUGMENTIN 875-1 EACH; +AUGMENTIN 875-1 EACH PO; +CEFDINIR300 MG PO; +DILAUDID 2 MG TA2 MG IMPLANT; +ENOXAPARIN30 MG/0.1 SUBQ; +ERGOCALCIF50000 UNIT PO; +FIRVANQ50 MG/1 ML PO; +FLUCONAZOLE 10100 MG PO; +GRANIX300 MCG/0. SUBQ; +LEVAQUIN 250 M250 MG PER TUBE; +LEVAQUIN 500 M500 M3 PO; +LOPERAMIDE 2 MG2 M1 PO; +MIRALAX17 GM PO; +NOVOLOG100 UNIT/1 SUBQ; +NYSTATIN100000 UNI SW&SWALLOW; +PREDNISONE 10 M10 MG PO; +PROTONIX 20 MG20 M1 PO
--- NOTE | ~2017-05-01 | 2DMMODE ---
[facility] [address] [place] [address] 2 D/M-MODE ECHOCARDIOGRAM Name: FRANCOIS LUGO Room #: REG CL [facility]#: [id number] Admission: 05/01/17 Attend Phys: Asa Anaya Discharge: Date of : 53 Date of Service: 05/01/17 1704 Report #: [id number] THIS REPORT FOR: //name// APPROVED REPORT Study performed: 05/01/2017 10:33:46 EXAM: Comprehensive 2D, Doppler, and color-flow Echocardiogram Patient Location: Echo lab Status: routine BSA: 2.32 HR: 96 bpm BP: 120/93 mmHg Other Information Study Quality: Technically Difficult Technically limited study due to body habitus, inability to position patient. Indications Pulmonary Hypertension 2D Dimensions RVDd: 31.75 mm LVEF(%): 52.46 (>50%) IVSd: 13.08 (7-11mm) LVOT Diam: 22.60 (18-24mm) LVDd: 42.21 mm PWd: 14.29 (7-11mm) LVDs: 30.96 (25-40mm) Aortic Root: 30.98 mm IVC: 13.00 mm Carmona's LVEF: 52.46 % Volumes Left Atrial Volume (Systole) Single Plane 4CH: 32.04 mL Single Plane 2CH: 16.76 mL LA ESV Index: 12.00 mL/m2 Aortic Valve AoV Peak Regan.: 1.77 m/s AO Peak Gr.: 12.51 mmHg LVOT Max P.80 mmHg LVOT Max V: 1.10 m/s THOR Vmax: 2.48 cm2 Mitral Valve E/A Ratio: 0.8 [facility] [address] [place] [address] 2 D/M-MODE ECHOCARDIOGRAM Name: BRITTNEYFRANCOIS BEKAH Room #: REG [facility].#: [id number] Admission: 05/01/17 Attend Phys: Asa Anaya Discharge: Date of : 53 Date of Service: 05/01/17 1704 Report #: [id number] MV Decel. Time: 200.50 ms MV E Max Regan.: 0.75 m/s MV A Regan.: 0.92 m/s MV PHT: 58.14 ms IVRT: 96.89 ms Pulmonary Valve PV Peak Regan.: 0.93 m/s PV Peak Gr.: 3.44 mmHg Pulmonary Vein P Vein S: 0.56 m/s P Vein A: 0.43 m/s P Vein D: 0.36 m/s P Vein A Dur.: 62.3 msec P Vein S/D Ratio: 1.56 Tricuspid Valve TR Peak Regan.: 3.75 m/s RAP Estimate: 5.00 mmHg TR Peak Gr.: 56.32 mmHg PA Pressure: 61.00 mmHg Left Ventricle The left ventricle is normal size. Mild concentric left ventricular hypertrophy. The left ventricular systolic function is normal. The left ventricular ejection fraction is within the normal range. LVEF is 60-65%. Mild diastolic dysfunction is present (impaired relaxation pattern). Right Ventricle The right ventricle is normal size. The right ventricular systolic function is normal. Atria The left atrium size is normal. The right atrium size is normal. Aortic Valve The aortic valve is normal in structure. No aortic regurgitation is present. There is no aortic valvular stenosis. Mitral Valve The mitral valve is normal in structure. Trace mitral regurgitation. No evidence of mitral valve stenosis. Tricuspid Valve The tricuspid valve is normal in structure. Trace to mild tricuspid regurgitation. PAP is estimated at [address] [address] 2 D/M-MODE ECHOCARDIOGRAM Name: FRANCOIS LUGO Room #: REG CL [facility]#: [id number] Admission: 05/01/17 Attend Phys: Asa Anaya Discharge: Date of : 53 Date of Service: 05/01/17 1704 Report #: [id number] Pulmonic Valve Pulmonic valve is not well visualized. Great Vessels The aortic root is normal in size. IVC is normal in size and collapses >50% with inspiration. Pericardium There is no pericardial effusion. <Conclusion> The left ventricular systolic function is normal. LVEF is 60-65%. Mild diastolic dysfunction is present (impaired relaxation pattern). The aortic valve is normal in structure. No aortic regurgitation or stenosis The mitral valve is normal in structure. Trace mitral regurgitation. Trace to mild tricuspid regurgitation. Pulmonary artery pressure is estimated at 60 mmHg. There is no pericardial effusion. <ELECTRONICALLY SIGNED> By: Cliff Olson MD, FACC 05/01/171703 03 03 Cliff Olson MD, FACC /INF
[2017-05-01 09:41] LABS: CREATININE 0.8 mg/dL (0.6-1.0)
== END ==
LOC: CV 07:34
PROVIDERS: Internal Medicine Pulmonary Disease
DX: I25.10 Atherosclerotic heart disease of native coronary artery without angina pectoris (principal); I10 Essential (primary) hypertension; R59.9 Enlarged lymph nodes, unspecified; J98.4 Other disorders of lung; J43.9 Emphysema, unspecified; I27.20 Pulmonary hypertension, unspecified; I08.1 Rheumatic disorders of both mitral and tricuspid valves

== ENCOUNTER 2017-07-31 06:57 | Inpatient (IN) | payer OTHER ==
[2017-07-31] VITALS (16 sets, daily range): BP systolic 86–150; BP diastolic 37–78
[~2017-07-31] VITALS: Ht 162.6 cm; Wt 139.3 kg
--- NOTE | ~2017-07-31 | HC ---
[facility] [place] [address] CONSULTATION Name: FRANCOIS LUGO Room #: 360-P ADM IN M.R.#: [id number] Admission: 07/31/17 Attend Phys: Meche Craig Discharge: Date of : 53 Report #: [id number] THIS REPORT FOR: //name// CC: Meche Craig Mathew Box DATE OF SERVICE: 08/02/2017 HISTORY OF PRESENT ILLNESS: The patient is a 61-year-old white female admitted with increased shortness of breath, acute on chronic respiratory failure. She was diagnosed with the left lower lobe pneumonia. She has a history of stage 4 non-Hodgkin's lymphoma for which she has been treated with chemotherapy. She has been receiving IV Rituxan every other month. She also has sarcoidosis, pulmonary hypertension and history of lupus. The patient is being followed now with Pulmonary Medicine, Infectious Disease and Internal Medicine. She is on IV antibiotics. She has complaints of overall weakness and decreased functional abilities and we are seeing her in rehabilitation medicine consultation. PAST MEDICAL HISTORY: Also includes right-sided breast cancer treated with lumpectomy, history of uterine cancer with hysterectomy in 1986, Raynaud's, fibromyalgia, depression, anxiety with panic attacks. She has had a pinched nerve and follows with the pain clinic. She has a pain pump, which she notes is present for her cancer. ALLERGIES: MIDAZOLAM. MEDICATIONS: Please see the full medication listing, this also includes vitamins, herbals, and supplements. SOCIAL HISTORY: Lives in a house with her , one step. She was on 3.5-4 liters nasal prong O2 premorbidly. She typically was a furniture walker, would only use an actual walker when she was long distance ambulation in the community. Otherwise, she did not use a walker. REVIEW OF SYSTEMS: No current complaints of chest pain, shortness of breath or abdominal discomfort. Complains of overall generalized weakness. PHYSICAL EXAMINATION: GENERAL: She is an obese 61-year-old white female in no obvious distress. VITAL SIGNS: Last recorded temperature 97.7, pulse 56, respirations 18, blood pressure 144/82. NEUROLOGIC: She is alert, nasal prong O2 is in place. Facies are symmetric. She has functional range of motion of the upper extremities with strength grade 4-/5. DTRs are trace to 1. Lower extremities, no focal calf swelling, functional range of motion with strength grade 3+ to 4-/5. DTRs are trace. There is no focal calf swelling. [address] [address] CONSULTATION Name: FRANCOIS LUGO Room #: 360-[facility] IN [facility]#: [id number] Admission: 07/31/17 Attend Phys: Meche Craig Discharge: Date of : 53 Report #: [id number] ASSESSMENT: A 61-year-old white female with the following problem list: 1. Acute on chronic respiratory failure. 2. Left lower lobe pneumonia. 3. Pulmonary rehabilitation. 4. Medical complexity with generalized debilitation. 5. Stage 4 non-Hodgkin's lymphoma, on chemotherapy. 6. History of sarcoidosis. 7. Pulmonary hypertension. 8. Lupus. 9. Fibromyalgia. 10. Past right breast cancer with lumpectomy. 11. Implantable pain pump. 12. Exogenous obesity. 13. Obstructive sleep apnea. PLAN: We will ask Physical Therapy and Occupational Therapy to work with her. She indicates that they live approximately an hour away and she would prefer to do any rehabilitation therapies closer to home. FOLLOWUP: I indicated that we would be glad to follow along with her and see how she does with her therapy evaluations. By: [id number] Dung Jackson MD /PMT
--- NOTE | ~2017-07-31 | EKG ---
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 : 1955 Requested By: Alex Vanessa Order Number: [id number] MD: Ernst Merino Measurements Intervals [place] Rate: 153 P: 46 TX: 121 QRS: -76 QRSD: 85 T: 35 QT: 269 QTc: 430 Interpretive Statements Sinus tachycardia Left anterior fascicular block Abnormal R-wave progression, late transition Compared to ECG 02/20/2017 10:43:07 Left anterior fascicular block now present Electronically Signed On 07-31-2017 19:51:16 CDT by Ernst Merino [email or web address] <ELECTRONICALLY SIGNED> By: Ernst Merino MD 07/31/171950 2 2 Ernst Merino MD /EPI
[~2017-07-31 06:57] MED LIST changes: -ACETAMINOPHEN325 M1 PO; -ACIDOPHILUS1 EAC4 PO; -CEFDINIR300 MG PO; -ENOXAPARIN30 MG/0.1 SUBQ; -ERGOCALCIF50000 UNIT PO; -FIRVANQ50 MG/1 ML PO; -FLUCONAZOLE 10100 MG PO; -GRANIX300 MCG/0. SUBQ; -LEVAQUIN 250 M250 MG PER TUBE; -LEVAQUIN 500 M500 M3 PO; -LOPERAMIDE 2 MG2 M1 PO; -MIRALAX17 GM PO; -NOVOLOG100 UNIT/1 SUBQ; -NYSTATIN100000 UNI SW&SWALLOW; -PROTONIX 20 MG20 M1 PO
[2017-07-31 07:18] LABS: URINE BILIRUBIN NEGATIVE (Negative); URINE BLOOD NEGATIVE (Negative); URINE CLARITY CLEAR; URINE COLOR YELLOW; URINE GLUCOSE-RANDOM* NEGATIVE (Negative); URINE KETONES NEGATIVE (Negative); URINE LEUKOCYTES-REFLEX NEGATIVE (Negative); URINE NITRITE-REFLEX NEGATIVE (Negative); URINE PROTEIN (DIPSTICK) NEGATIVE (Negative)
[2017-07-31 07:26] LABS: ANION GAP 9 mmol/L (7-16); BUN 11 mg/dL (7-18); CALCIUM 9.5 mg/dL (8.5-10.1); CHLORIDE 101 mmol/L (98-107); CO2 29 mmol/L (21-32); CREATININE 0.8 mg/dL (0.6-1.0); GLUCOSE 124 mg/dL (74-106); POTASSIUM 3.6 mmol/L (3.5-5.1); SODIUM 139 mmol/L (136-145)
[2017-07-31 07:35] LABS: TROPONIN-I < 0.04 ng/mL (<0.06)
[2017-07-31 07:45] LABS: BE(vivo) 2.5 mmol/L (-2 to +3); HCO3 26.7 mmol/L (22.0-26.0); PCO2 39.9 mmHg (35.0-45.0); PO2 74.5 mmHg (80.0-100.0); pH 7.443 (7.360-7.450); sO2 95.5 % (92.0-98.0)
[2017-07-31 08:15] LABS: HEMATOCRIT 37.8 % (37.0-47.0); HEMOGLOBIN 12.6 gm/dL (12.0-15.0); MCH 26.1 pg (26.0-34.0); MCHC 33.4 g/dL (28.0-37.0); MCV 78.3 fL (80.0-100.0); PLATELET COUNT 114 thou/uL (150-400); RBC 4.82 mil/uL (4.20-5.00); RDW 17.3 % (10.5-14.5); WBC 2.4 thou/uL (4.0-11.0)
[2017-07-31 08:41] LABS: ABSOLUTE NEUTROPHILS 1.2 thou/uL (1.4-8.2); PLATELET ESTIMATE NORMAL
[2017-08-01] VITALS (22 sets, daily range): BP systolic 99–156; BP diastolic 59–125
[2017-08-01 08:26] LABS: HEMATOCRIT 34.4 % (37.0-47.0); HEMOGLOBIN 11.3 gm/dL (12.0-15.0); MCH 26.1 pg (26.0-34.0); MCV 79.1 fL (80.0-100.0); RBC 4.34 mil/uL (4.20-5.00); RDW 17.9 % (10.5-14.5); WBC 2.1 thou/uL (4.0-11.0)
[2017-08-01 08:28] LABS: CALCIUM 9.1 mg/dL (8.5-10.1); CREATININE 0.7 mg/dL (0.6-1.0); POTASSIUM 3.6 mmol/L (3.5-5.1)
[2017-08-02 04:40] VITALS: BP 135/67
[2017-08-02 08:15] VITALS: BP 144/82
[2017-08-02 12:15] VITALS: BP 154/86
[2017-08-02 16:30] VITALS: BP 154/76
[2017-08-02 19:32] VITALS: BP 150/82
[2017-08-02 23:07] LABS: ADENOVIRUS Negative (Negative); INFLUENZA A Negative (Negative); INFLUENZA B Negative (Negative); METAPNEUMOVIRUS Negative (Negative); PARAINFLUENZA 1 Negative (Negative); PARAINFLUENZA 2 Negative (Negative); PARAINFLUENZA 3 Negative (Negative); RHINOVIRUS Positive (Negative); RSV A Negative (Negative); RSV B Negative (Negative)
[2017-08-03] VITALS (8 sets, daily range): BP systolic 156–195; BP diastolic 76–100
[2017-08-04 03:55] VITALS: BP 185/101
[2017-08-04 08:04] VITALS: BP 181/88
[2017-08-04 12:19] VITALS: BP 160/111
[2017-08-04 13:13] VITALS: BP 158/87
[2017-08-04 17:44] VITALS: BP 158/103
[2017-08-04 19:35] VITALS: BP 155/86
[2017-08-05 03:10] VITALS: BP 152/97
[2017-08-05 07:45] VITALS: BP 142/92
[2017-08-05 11:53] VITALS: BP 149/96
[2017-08-05 16:38] VITALS: BP 146/95
[2017-08-05 19:10] VITALS: BP 125/90
[2017-08-06 05:20] VITALS: BP 143/86
[2017-08-06 07:50] VITALS: BP 150/85
[2017-08-06 11:38] VITALS: BP 151/82
[2017-08-06 15:39] VITALS: BP 167/91
[2017-08-06 19:42] VITALS: BP 126/78
[2017-08-07 04:00] VITALS: BP 132/84
[2017-08-07 07:40] VITALS: BP 163/103
[2017-08-07] MEDS ORDERED: CEFDINIR300 MG PO (08:57)
[2017-08-07] MEDS ORDERED: ENOXAPARIN30 MG/0.1 SUBQ (08:57)
[2017-08-07] MEDS ORDERED: MIRALAX17 GM PO (08:58)
[2017-08-07] MEDS ORDERED: ACETAMINOPHEN325 M1 PO (08:58)
[2017-08-07] MEDS ORDERED: NOVOLOG100 UNIT/1 SUBQ (08:59)
[2017-08-07] MEDS ORDERED: PREDNISONE 20 M20 M1 PO (08:59)
[2017-08-07 09:30] VITALS: BP 163/103
== END 2017-08-07 09:53 | disposition home or self-care (01) | DRG 871 ==
LOC: ER 06:57 → ICU 10:22 → 3W 08-01 18:41
PROVIDERS: Emergency Medicine; Specialist
PROC: 5A09357 Assistance with Respiratory Ventilation, Less than 24 Consecutive Hours, Continuous Positive Airway Pressure (ICD-10-PCS; principal; 2017-08-03)
PROC: 5A09357 Assistance with Respiratory Ventilation, Less than 24 Consecutive Hours, Continuous Positive Airway Pressure (ICD-10-PCS; 2017-08-04)
DX: A41.9 Sepsis, unspecified organism (principal); J96.21 Acute and chronic respiratory failure with hypoxia; J18.1 Lobar pneumonia, unspecified organism; C85.90 Non-Hodgkin lymphoma, unspecified, unspecified site; Z68.43 Body mass index [BMI] 50.0-59.9, adult; I27.20 Pulmonary hypertension, unspecified; M32.9 Systemic lupus erythematosus, unspecified; M79.7 Fibromyalgia; F32.9 Major depressive disorder, single episode, unspecified; F41.9 Anxiety disorder, unspecified; K21.9 Gastro-esophageal reflux disease without esophagitis; Y95 Nosocomial condition; G47.33 Obstructive sleep apnea (adult) (pediatric); E66.8 Other obesity; D69.6 Thrombocytopenia, unspecified; R16.1 Splenomegaly, not elsewhere classified; B96.3 Hemophilus influenzae [H. influenzae] as the cause of diseases classified elsewhere; B97.89 Other viral agents as the cause of diseases classified elsewhere; B96.1 Klebsiella pneumoniae [K. pneumoniae] as the cause of diseases classified elsewhere; G89.29 Other chronic pain; Z98.1 Arthrodesis status; M54.9 Dorsalgia, unspecified; J45.909 Unspecified asthma, uncomplicated; Z90.710 Acquired absence of both cervix and uterus; Z85.3 Personal history of malignant neoplasm of breast; Z85.42 Personal history of malignant neoplasm of other parts of uterus; Z87.01 Personal history of pneumonia (recurrent); Z79.899 Other long term (current) drug therapy; Z88.8 Allergy status to other drugs, medicaments and biological substances; Z92.21 Personal history of antineoplastic chemotherapy
CPT/HCPCS: 10078; 10779

== ENCOUNTER 2017-08-07 11:03 | Inpatient (IN) | payer OTHER ==
[~2017-08-07] VITALS: Ht 154.9 cm; Wt 127.0 kg
--- NOTE | ~2017-08-07 | H ---
[facility] [place] [address] HISTORY AND PHYSICAL Name: FRANCOIS LUGO Room #: 516-1 [facility] IN M.R.#: [id number] Admission: 08/07/17 Attend Phys: Dung Jackson MD Discharge: 08/11/17 Date of : 53 Report #: [id number] THIS REPORT FOR: //name// CC: Dung Jackson Mathew Box DATE OF SERVICE: 08/08/2017 HISTORY OF PRESENT ILLNESS: The patient is a 61-year-old white female originally admitted to [facility] on 07/31/2017, was increased shortness of breath, acute on chronic respiratory failure. She was diagnosed with a left lower lobe pneumonia. She has a history of stage IV non-Hodgkin's lymphoma for which she was treated with chemotherapy. She had been receiving IV Rituxan every other month. She also has sarcoidosis, pulmonary hypertension and history of lupus. She has been on IV antibiotics. She has been treated for acute on chronic respiratory failure with left lower lobe pneumonia. She has multiple physician consultants that are working with her. She is has now been admitted for acute inpatient rehabilitation. PAST MEDICAL HISTORY: Includes, right-sided breast cancer treated with lumpectomy, history of uterine cancer with hysterectomy, Raynaud's, fibromyalgia, depression, anxiety with panic attacks. She has had a pinched nerve and follows with the pain clinic. She has had a pain pump and recently had it refilled, which she notes is present for her cancer. ALLERGIES: Midazolam. MEDICATIONS: Please see the full medication listing. This list includes vitamins, herbals, and supplements. SOCIAL HISTORY: She lives in a house with her in one step. She was on 3-1/2-4 liters nasal prong O2 premorbidly. She typically was a furniture walker would only use an actual walker when she was doing long distance ambulation in the community. Otherwise, she did not use a walker. REVIEW OF SYSTEMS: No current complaints of chest pain, shortness of breath, abdominal discomfort. She does have overall generalized weakness. PHYSICAL EXAMINATION: GENERAL: She is a pleasant, obese 61-year-old white female in no obvious distress. VITAL SIGNS: Last recorded temperature is 98.3, pulse 93, respirations 18, blood pressure 143/61. HEENT: Appeared to be benign. Cranial nerves are grossly intact. CHEST: She has some decreased breath sounds throughout. CARDIOVASCULAR: Sounded regular rate and rhythm. [address] [address] HISTORY AND PHYSICAL Name: FRANCOIS LUGO Room #: 516-1 [facility] IN .R.#: [id number] Admission: 08/07/17 Attend Phys: Dung Jackson MD Discharge: 08/11/17 Date of : 53 Report #: [id number] ABDOMEN: Obese, bowel sounds positive, nontender. GENITOURINARY AND RECTAL: Deferred. NEUROLOGIC: She has the nasal prong O2 in place. She is currently on 4 liters. Functional range of motion of the upper extremities with strength grade 4-/5. DTRs are trace to 1. Lower extremities, no focal calf swelling, functional range of motion with strength grade 3+ to 4-/5. DTRs are trace. No focal calf swelling. ASSESSMENT: This is a 61-year-old white female with the following problem list: 1. Pulmonary rehabilitation. 2. Medical complexity with generalized debilitation. 3. Left lower lobe pneumonia with Haemophilus and rhinovirus. 4. Antibiotic associated diarrhea. 5. Non-Hodgkin's lymphoma, on chemotherapy. 6. Obesity. 7. Obstructive sleep apnea. 8. Chronic obstructive pulmonary disease. 9. Chronic back pain. Has an implantable pain pump. 10. Pulmonary hypertension. 11. History of sarcoidosis. 12. Lupus. 13. Past history of breast cancer with lumpectomy. PLAN: The patient is admitted for acute in-hospital inpatient rehabilitation. From a postadmission physician evaluation perspective, there are no relevant changes since the preadmission screening. Please see the above review of prior and current medical and functional conditions and comorbidities. Please see the patient's previous and current functional status. As far as risk of complication, she has multiple medical comorbidities as noted above. Initial plan of care involves the interdisciplinary acute inpatient rehabilitation program with the goal of maximizing her functional independence, so she can hopefully return back to her prior living situation. Measurable functional goals would be for her to become modified independent with transfers, mobility, ADLs that she can hopefully return back to her prior living situation. Prognosis is reasonably good with estimated length of stay probably at least 7-14 days pending her progress. Potential barriers would include her multiple medical comorbidities and decreased functional status. The patient meets diagnostic criteria for an acute in-hospital inpatient rehabilitation stay. She meets medical necessity criteria and we will have the multiple systems management consultant physicians continue to follow up. She does have the [facility] [address] [place] [address] HISTORY AND PHYSICAL Name: FRANCOIS LUGO Room #: 516-1 DIS IN M.R.#: [id number] Admission: 08/07/17 Attend Phys: Dung Jackson MD Discharge: 08/11/17 Date of : 53 Report #: [id number] tolerance for therapies and has appropriate discharge goals back to the home setting. <ELECTRONICALLY SIGNED> By: Dung Jackson MD 08/11/17 1516 0812 0830 Dung Jackson MD /nt
--- NOTE | ~2017-08-07 | PLAN ---
[facility] [place] [address] REHAB UNIT PLAN OF CARE Name: FRANCOIS LUGO Room #: 516-1 DIS IN M.R.#: [id number] Admission: 08/07/17 Attend Phys: Dung Jackson MD Discharge: 08/11/17 Date of : 53 Report #: [id number] THIS REPORT FOR: //name// CC: Dung Jackson Mathew Box DATE OF SERVICE: 08/09/2017 PROGRESS NOTE/OVERALL PLAN OF CARE SUBJECTIVE: The patient is seen back today in followup. No new complaints. Temperature 98, pulse 96, respirations 20, blood pressure 117/76. No focal calf swelling. Nasal prong O2 is in place. Transfers are standby assistance. Gait was contact guard 25 feet with a front-wheeled walker. She has gone up and down 4 steps with contact guard. In occupational therapy, lower body dressing is moderate assistance. ASSESSMENT: 1. Pulmonary rehabilitation. 2. Medical complexity with generalized debilitation. 3. Left lower lobe pneumonia with Haemophilus and rhinovirus. 4. Antibiotic-associated diarrhea. 5. Non-Hodgkin's lymphoma, on chemotherapy. 6. Obesity. 7. Obstructive sleep apnea. 8. Chronic obstructive pulmonary disease. 9. Chronic back pain with implantable pump. 10. Pulmonary hypertension. 11. History of sarcoidosis. PLAN: The overall plan of care is based on the preadmission screen, post-admission physician evaluation, and information garnered from therapy assessments. 1. Estimated length of stay: Current plan is for her to be discharged to home next 08/15/2017. 2. Medical prognosis is reasonably good. 3. Anticipated interventions includes the interdisciplinary acute inpatient rehabilitation program. 4. Anticipated functional outcomes would be for her to further improve with her functional mobility and ADLs and return back to her prior functional level. She typically was a furniture walker, otherwise used a walker only for longer distance ambulation premorbidly. 5. Discharge destination would be back to the home setting where she lives with her . 6. Expected therapy by discipline includes PT and OT 1 to 1-1/2 hours per day each 5 days a week throughout the duration of the acute inpatient rehabilitation [address] [address] REHAB UNIT PLAN OF CARE Name: FRANCOIS LUGO Room #: 516-1 [facility] IN .R.#: [id number] Admission: 08/07/17 Attend Phys: Dung Jackson MD Discharge: 08/11/17 Date of : 53 Report #: [id number]. ADDENDUM: The patient did miss some therapies yesterday secondary to generalized malaise. <ELECTRONICALLY SIGNED> By: Dung Jackson MD 08/11/17 1516 0857 0911 Dung Jackson MD /nt
[~2017-08-07 11:03] MED LIST changes: +ACETAMINOPHEN325 M1 PO; +CEFDINIR300 MG PO; +ENOXAPARIN30 MG/0.1 SUBQ; +MIRALAX17 GM PO; +NOVOLOG100 UNIT/1 SUBQ
[2017-08-07 13:39] VITALS: BP 105/83
[2017-08-07 19:45] VITALS: BP 143/61
[2017-08-08 05:48] LABS: HEMATOCRIT 37.8 % (37.0-47.0); HEMOGLOBIN 12.4 gm/dL (12.0-15.0); MCHC 32.9 g/dL (28.0-37.0); RBC 4.79 mil/uL (4.20-5.00); RDW 17.9 % (10.5-14.5)
[2017-08-08 05:54] LABS: CALCIUM 8.4 mg/dL (8.5-10.1); CREATININE 0.7 mg/dL (0.6-1.0)
[2017-08-08 06:01] LABS: POTASSIUM 2.7 mmol/L (3.5-5.1)
[2017-08-08 08:00] VITALS: BP 136/76
[2017-08-08 19:53] VITALS: BP 117/76
[2017-08-09 06:10] LABS: HEMATOCRIT 33.7 % (37.0-47.0); HEMOGLOBIN 11.2 gm/dL (12.0-15.0); MCH 26.2 pg (26.0-34.0); MCHC 33.2 g/dL (28.0-37.0); MCV 79.1 fL (80.0-100.0); PLATELET COUNT 107 thou/uL (150-400); RBC 4.26 mil/uL (4.20-5.00); RDW 17.6 % (10.5-14.5); WBC 2.7 thou/uL (4.0-11.0)
[2017-08-09 06:21] LABS: CALCIUM 8.8 mg/dL (8.5-10.1); CREATININE 0.6 mg/dL (0.6-1.0); POTASSIUM 3.4 mmol/L (3.5-5.1)
[2017-08-09 06:54] LABS: ABSOLUTE NEUTROPHILS 1.6 thou/uL (1.4-8.2); METAMYELOCYTES 2 %
[2017-08-09 06:55] LABS: ANISOCYTOSIS 1+
[2017-08-09 07:30] VITALS: BP 118/68
[2017-08-09 19:13] VITALS: BP 140/64
[2017-08-10 08:20] VITALS: BP 96/54
[2017-08-10 15:34] VITALS: BP 96/54
[2017-08-10 21:16] VITALS: BP 123/55
[2017-08-11 06:49] LABS: HEMATOCRIT 33.3 % (37.0-47.0); MCH 26.5 pg (26.0-34.0); MCHC 33.1 g/dL (28.0-37.0); PLATELET COUNT 123 thou/uL (150-400); RBC 4.16 mil/uL (4.20-5.00); RDW 17.6 % (10.5-14.5); WBC 2.2 thou/uL (4.0-11.0)
[2017-08-11 06:59] LABS: CALCIUM 9.1 mg/dL (8.5-10.1); CREATININE 0.6 mg/dL (0.6-1.0); POTASSIUM 3.9 mmol/L (3.5-5.1)
[2017-08-11 07:48] LABS: ABSOLUTE NEUTROPHILS 1.6 thou/uL (1.4-8.2); ANISOCYTOSIS 1+
[2017-08-11] MEDS ORDERED: ACIDOPHILUS1 EAC4 PO (07:56)
[2017-08-11] MEDS ORDERED: ERGOCALCIF50000 UNIT PO (07:56)
[2017-08-11] MEDS ORDERED: PROTONIX 20 MG20 M1 PO (07:56)
[2017-08-11] MEDS ORDERED: LOPERAMIDE 2 MG2 M1 PO (07:56)
[2017-08-11] MEDS ORDERED: PREDNISONE 20 M20 M1 PO (07:56)
[2017-08-11 09:05] VITALS: BP 140/70
== END 2017-08-11 11:08 | disposition home or self-care (01) | DRG 947 ==
LOC: ENTRNSPT 08-11 10:59 → EDTRNSPTSTS 08-11 11:03
PROVIDERS: Nurse Practitioner; Nurse Practitioner Family
DX: R53.81 Other malaise (principal); J12.89 Other viral pneumonia; K52.1 Toxic gastroenteritis and colitis; C85.90 Non-Hodgkin lymphoma, unspecified, unspecified site; J44.1 Chronic obstructive pulmonary disease with (acute) exacerbation; J44.0 Chronic obstructive pulmonary disease with (acute) lower respiratory infection; Z68.43 Body mass index [BMI] 50.0-59.9, adult; T36.95XA Adverse effect of unspecified systemic antibiotic, initial encounter; E66.9 Obesity, unspecified; G47.33 Obstructive sleep apnea (adult) (pediatric); G89.29 Other chronic pain; M54.9 Dorsalgia, unspecified; I27.20 Pulmonary hypertension, unspecified; D86.9 Sarcoidosis, unspecified; M32.9 Systemic lupus erythematosus, unspecified; E87.6 Hypokalemia; D69.6 Thrombocytopenia, unspecified; E55.9 Vitamin D deficiency, unspecified; I73.00 Raynaud's syndrome without gangrene; M79.7 Fibromyalgia; F32.9 Major depressive disorder, single episode, unspecified; F41.0 Panic disorder [episodic paroxysmal anxiety]; Y92.89 Other specified places as the place of occurrence of the external cause; Z88.8 Allergy status to other drugs, medicaments and biological substances; Z85.3 Personal history of malignant neoplasm of breast; Z85.42 Personal history of malignant neoplasm of other parts of uterus; Z90.710 Acquired absence of both cervix and uterus
CPT/HCPCS: 10112

== ENCOUNTER 2017-09-10 09:41 | Inpatient (IN) | payer OTHER ==
[~2017-09-10] VITALS: Ht 162.6 cm; Wt 130.2 kg
--- NOTE | ~2017-09-10 | HC ---
[facility] [place] [address] CONSULTATION Name: FRANCOIS LUGO Room #: 423-1 ADM IN M.R.#: [id number] Admission: 09/10/17 Attend Phys: Wenceslao Penn MD Discharge: Date of : 53 Report #: [id number] THIS REPORT FOR: //name// CC: Mathew Penn REFERRAL PHYSICIAN: Dr. Penn. REASON FOR REFERRAL: COPD, sarcoidosis. HISTORY OF PRESENT ILLNESS: The patient is a 61-year-old white female with history of sarcoidosis, ADRIAN, lupus, asthma, pulmonary hypertension, who presents to the Emergency Room with dysphagia. A pulmonary consultation was requested. She is normally followed longitudinally by Dr. Felix as an outpatient. She states that she was in her usual state of health until a few weeks ago, she started to have trouble with swallowing liquids and foods. For that reason, she presented to the Emergency Room. Otherwise, denies any dyspnea, night sweats or chills, chest pain or productive cough. She is normally on 3 liters of O2. She has had a long history of lupus, has questionable history of scleroderma. There is also questionable history of sarcoidosis involving her esophagus, though this was not confirmed. She has known non-Hodgkin's lymphoma with recurrence. She is currently on maintenance chemotherapy. She is followed by Dr. Farooq Frye, her oncologist. PAST MEDICAL HISTORY: As mentioned above, history of sarcoidosis, details not entirely certain at this time, non-Hodgkin's lymphoma diagnosed in 2009 with progression and recurrence of disease in 2013 involving the mediastinum and left hilum with recurrence of disease by PET scan in 2014, history of breast cancer diagnosed in 1984, lupus with questionable history of scleroderma, fibromyalgia, chronic hypoxic respiratory failure on 3 liters of O2, obstructive sleep apnea, intolerant to the use of CPAP, Raynauds, prior sleep study showing moderate ADRIAN with an AHI of 15 events per hour, low saturation of 74%. Previous echocardiogram showed evidence of pulmonary hypertension, history of asthma, left upper arm spiral fracture, status post cervical spine surgery, history of depression, anxiety and panic attacks, gastroesophageal reflux disease, hiatal hernia, status post oophorectomy. She is normally followed by Dr. 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 [address] [address] CONSULTATION Name: FRANCOIS LUGO Room #: 423-1 ADM IN M.R.#: [id number] Admission: 09/10/17 Attend Phys: Wenceslao Penn MD Discharge: Date of : 53 Report #: [id number] PAST SURGICAL HISTORY: As mentioned above. ALLERGIES: VERSED WHICH CAUSED SEVERE HALLUCINATIONS. HOME MEDICATIONS: Reviewed including nebulized albuterol, Tylenol, Imodium, ergocalciferol or Drisdol, Flexeril, prednisone 5 mg once a day, Lyrica. FAMILY HISTORY: Noncontributory. SOCIAL HISTORY: The patient has never smoked. She denies any alcohol use. REVIEW OF SYSTEMS: As mentioned above, otherwise 10-point system review negative. PHYSICAL EXAMINATION: GENERAL: She is awake, alert, in no apparent distress. She states that she was expecting to see Dr. Luciano Felix instead of me and appears somewhat dejected. VITAL SIGNS: Temperature is 98.6 degrees Fahrenheit, pulse is 110, respiratory rate is 22, blood pressure is 108/62 mmHg, saturation 97%. HEENT: Normocephalic, atraumatic. NECK: Supple, without any lymphadenopathy or thyromegaly. CHEST: Breath sounds fair due to poor effort, bilateral crackles. No wheezes. ABDOMEN: Obese, soft, nontender, no organomegaly or masses felt. GENITOURINARY: Deferred. RECTAL: Deferred. EXTREMITIES: No edema, cyanosis or clubbing. LABORATORY DATA: Portable chest x-ray shows small lung volumes, questionable left upper lobe atelectasis, otherwise unremarkable. Electrolytes are normal with a creatinine of 0.6. WBC 1400, hemoglobin 10.8, platelets are normal. Albumin 2.7. IMPRESSION: 1. Dysphagia, etiology unclear, but concerns for possible esophageal dysmotility due to lupus related to scleroderma, possible recurrence of non-Hodgkin's lymphoma, questionable involvement of sarcoidosis, though this has not been confirmed in the past. GI has been consulted. 2. Asthma, relatively stable. 3. Sarcoidosis, details are not entirely clear. There is a questionable history of esophageal involvement, though this is rather rare. We will await GI evaluation. 4. ADRIAN, intolerant to use of CPAP, on nocturnal O2. 5. Chronic hypoxic respiratory failure, on 3 liters of O2 at home. 6. Pulmonary hypertension due to pulmonary impairment. 7. History of lupus, followed by Dr. Munoz, also has a history of Raynaud's and questionable history of scleroderma. [facility] [address] [facility] [place] [address] CONSULTATION Name: FRANCOIS LUGO Room #: 468-1 ADM IN M.R.#: [id number] Admission: 09/10/17 Attend Phys: Wenceslao Penn MD Discharge: Date of : 53 Report #: [id number] 8. Anxiety and depression, panic attacks. 9. Gastroesophageal reflux disease along with hiatal hernia. 10. Chronic neutropenia. 11. Recurrence of non-Hodgkin's lymphoma, on chemotherapy, RECOMMENDATIONS: The patient is relatively stable from pulmonary standpoint. Her predominant problem appears to be dysphagia. She denies any dyspnea, chest pain or productive cough. PLAN: We will resume her home bronchodilator, O2 to keep saturation at 90%. She will resume her prednisone dose for her lupus at 5 mg once a day. Otherwise, not much is there from pulmonary standpoint. We will standby. Please call if there are any questions. Thank you for this consultation. <ELECTRONICALLY SIGNED> By: Shai Boone MD 09/12/17 1450 1445 1580 Shai Boone MD /nt
--- NOTE | ~2017-09-10 | PATH ---
[facility] [address] PATHOLOGY RPT PROCEDURE Name: ROSA SCHAEFFER Room #: 423-1 DIS IN M.R.#: [id number] Admission: 09/10/17 Date of : 53 Discharge: 09/13/17 Report #: [id number] Path Case #: [id number] [facility] Accession Number: [id number] . 01 Material submitted: . BX OF SUSPECTED JAEL . 01 Clinical history: . Pre-OP DX: Dysphagia Post-OP DX: Suspected Jael, hiatal hernia . 02 Diagnosis: BX of suspected Jael: - Fungal organisms compatible with Jael species present (positive GMS stain, block A1 appropriately reactive control). - Squamous mucosa, acute and chronically inflamed. . (MAP:mm; 09/13/2017) [facility]/09/13/2017 . 02 Comment: Co-review: Dr. Lizabeth Page . (MAP:[facility]; 09/13/2017) . 02 Electronically signed: . Rebel Grossman MD, Pathologist NPI- [id number] . 01 Gross description: . Received in formalin labeled "Rosa Schaeffer, BX suspected Jael," is a single segment of yanes soft tissue measuring 0.4 cm in maximum dimension. The specimen is entirely submitted in cassette A1. (TSD; 09/11/2017) TOB/TOB . 02 Pathologist provided ICD-10: B37.81 . 02 CPT . 727495, [id number] Performed at: [address] [id number] MD David Lou MD Phone: [phone] Performed at: [address] [address] PATHOLOGY RPT PROCEDURE Name: ROSA SCHAEFFER BEKAH Room #: 423-1 [facility] IN [facility]#: [id number] Admission: 09/10/17 Date of : 53 Discharge: 09/13/17 Report #: [id number] Path Case #: [id number] [address] [place] [address] [id number] MD Lizabeth Page MD Phone: [phone]
--- NOTE | ~2017-09-10 | HC ---
[facility] [place] [address] CONSULTATION Name: FRANCOIS LUGO Room #: 423-1 ADM IN M.R.#: [id number] Admission: 09/10/17 Attend Phys: Wenceslao Penn MD Discharge: Date of : 53 Report #: [id number] THIS REPORT FOR: //name// CC: Nirmala Olson MD [facility] Mathew Boone MD REASON FOR CONSULTATION: Leukopenia and history of lymphoma. HISTORY OF PRESENT ILLNESS: The patient is a 61-year-old female very well known to me with a history of marginal zone lymphoma. She actually has a history of mild leukopenia for quite a few years, going back even to 2012. This was thought to be in part related to both her splenomegaly of about 15.5 cm as well as a history of sarcoid. Recently, she was admitted for esophageal plaque, thought to be related to candidiasis, was begun on therapy. On admission here, she had a white count of 4, which had dropped down to 2.2-1.4, currently at 1.3. During the same time, we note that her other laboratory tests has a BUN of 9, creatinine 0.7. Liver functions normal, though total bilirubin up at 1.7, which she has been up this high before; alkaline phosphatase of 146, ALT 30, albumin 2.7. Coags and protime normal. As mentioned above, white count was recently 1.6 though earlier in the month, it had been 4 as an outpatient; hemoglobin 10.9; note that MCV has been slightly low at 79.8, has been as high as about 84 in the distant past, though it was in the 75 range back this past February. RDW elevated at 18.8, platelet count 165. Differential has decreased absolute lymphocytes, ANC recently was around 0.9 and also today 0.6. UA is fairly unremarkable. Recent CAT scan done in July had not revealed any lymphadenopathy to suggest recurrence of her marginal zone lymphoma. They thought the spleen was about [address] abdomen and pelvis back in 02/2015 was fairly unremarkable with regards to lymphadenopathy. REVIEW OF SYSTEMS: The patient at this time denies recent fevers or chills. Did not have the odynophagia or dysphagia. No new abdominal pain. No new arm or leg swelling. No new skin rashes, though she does have sarcoid involving her skin periodically. PAST MEDICAL HISTORY: Notable for the marginal zone lymphoma originally from 2009, treated with fludarabine, Cytoxan and rituximab, completed in 11/2009, had recurred in 2013, had been on Treanda rituximab, and then in 09/2014 once again was treated with fludarabine, Cytoxan, and rituximab. She had then been on rituximab almost as a maintenance therapy, but also probably for her sarcoid. [address] [address] CONSULTATION Name: FRANCOIS LUGO Room #: 423-1 ADM IN M.R.#: [id number] Admission: 09/10/17 Attend Phys: Wenceslao Penn MD Discharge: Date of : 53 Report #: [id number] She also has history of sarcoid with cutaneous and skin involvement, history of severe pulmonary hypertension, also history of breast cancer in 1984, history of iron deficiency in the past, history of uterine cancer, history of fibromyalgia, history of lupus erythematosus. SOCIAL HISTORY: Her recently had hip surgery a day ago, I stopped and visited with him. Nonsmoker, nondrinker, no street drugs. PHYSICAL EXAMINATION: GENERAL: The patient appears her stated age. VITAL SIGNS: Height is 5 feet 4 inches or 162.6 cm, weight 287 pounds or 130.2 kilograms. Blood pressure is 126/78, O2 sat 94%, respirations 18, temperature 98.0 which has been as high as 99.3, pulse 102. MOOD: She is alert and pleasant, though fatigued. NEUROLOGIC: Face is symmetrical, moving all extremities. SKIN: Does have several small ecchymosis related to the steroid skin. HEENT: Oropharynx without any leukoplakia at this time or erythema. LUNGS: Mostly clear but does have a couple of soft rhonchi that clear with cough. HEART: Regular rate. ABDOMEN: Very obese. No palpable organomegaly. EXTREMITIES: Without clubbing or cyanosis. There may be some trace edema. ASSESSMENT AND PLAN: 1. Leukopenia, probably multifactorial and longstanding in nature, may be partly related to splenomegaly, also sarcoid, possible iron deficiency with MCV being low. We will check iron levels, folate, TSH, peripheral smear and anti-neutrophil cytoplasmic antibody. Note that recent B12 was acceptable, could be bone marrow involvement but this has been present for a long time and platelets and hemoglobin have been fairly stable. Use precautions if ANC less than 1000, which I believe it is today. 2. Esophagitis, continue Diflucan. 3. History of marginal zone low-grade lymphoma, not known to be recurrent. 4. Sarcoid, has been on steroids per Dr. Munoz. 5. Pulmonary hypertension. Meds per others. 6. Chronic obstructive pulmonary disease, inhalers per others. 7. Lupus, per others. CURRENT MEDICATIONS: List currently includes fluconazole 100 mg daily p.o., pantoprazole 40 daily, Lovenox 40 at bedtime, ipratropium and albuterol respiratory therapy q.i.d., morphine p.r.n., Tylenol p.r.n., zolpidem 5 mg at bedtime p.r.n., Zofran p.r.n. <ELECTRONICALLY SIGNED> By: Farooq Frye MD 09/13/17 0713 0901 1210 Faroqo Frye MD /nt
--- NOTE | ~2017-09-10 | EKG ---
[place] [address] [facility] [email or web address] [address] ELECTROCARDIOGRAM REPORT Name: FRANCOIS LUGO Room #: 170-2 ADM IN M.R.#: [id number] Admission: 09/10/17 Attend Phys: Wenceslao Penn MD Discharge: Date of : 53 Report #: [id number] THIS REPORT FOR: //name// [facility] ED Test Date: 2017-09-10 Test Time: 13:48:33 Pat Name: FRANCOIS LUGO Department: Room: Gender: F [employer] Caulker: LENY : 1955 Requested By: Gracie Mercedes Order Number: [id number] MD: Cliff Olson Measurements Intervals [place] Rate: 116 P: 60 NV: 139 QRS: 0 QRSD: 86 T: 9 QT: 319 QTc: 444 Interpretive Statements Sinus tachycardia Abnormal R-wave progression, late transition Borderline T abnormalities, anterior leads Compared to ECG 07/31/2017 07:13:55 No significant change was found Electronically Signed On 09-10-2017 14:13:37 CDT by Cliff Olson [email or web address] <ELECTRONICALLY SIGNED> By: Cliff Olson MD, [facility] 09/10/17 1413 1348 1348 Cliff Olson MD, [facility] /EPI
[~2017-09-10 09:41] MED LIST changes: +ACIDOPHILUS1 EAC4 PO; +ERGOCALCIF50000 UNIT PO; +LOPERAMIDE 2 MG2 M1 PO; +PROTONIX 20 MG20 M1 PO
[2017-09-10 09:47] VITALS: BP 147/85
[2017-09-10 11:43] LABS: MCH 26.9 pg (26.0-34.0); MCHC 33.9 g/dL (28.0-37.0)
[2017-09-10 11:44] LABS: HEMOGLOBIN 11.2 gm/dL (12.0-15.0); MCV 79.3 fL (80.0-100.0); PLATELET COUNT 155 thou/uL (150-400); RBC 4.16 mil/uL (4.20-5.00); RDW 18.8 % (10.5-14.5)
[2017-09-10 11:49] LABS: WBC 1.6 thou/uL (4.0-11.0)
[2017-09-10 11:51] LABS: CALCIUM 8.9 mg/dL (8.5-10.1); CREATININE 0.7 mg/dL (0.6-1.0); POTASSIUM 3.4 mmol/L (3.5-5.1)
[2017-09-10 11:57] LABS: ALBUMIN 2.7 g/dL (3.4-5.0); DIRECT BILIRUBIN 0.4 mg/dL (<0.1-0.3); TOTAL BILIRUBIN 1.7 mg/dL (<0.1-1.0); TOTAL PROTEIN 6.2 g/dL (6.4-8.2)
[2017-09-10 12:45] LABS: ABSOLUTE NEUTROPHILS 0.9 thou/uL (1.4-8.2); ANISOCYTOSIS 2+; MICROCYTES 1+
[2017-09-10 12:46] LABS: METAMYELOCYTES 1 %
[2017-09-10 14:58] VITALS: BP 113/63
[2017-09-10] MEDS ORDERED: PREDNISONE 5 MG5 M1 PO (17:09)
[2017-09-10 20:03] VITALS: BP 111/60
[2017-09-11 01:52] LABS: URINE BLOOD NEGATIVE (Negative); URINE CLARITY CLEAR; URINE COLOR YELLOW; URINE GLUCOSE-RANDOM* NEGATIVE (Negative); URINE KETONES 1+ (Negative); URINE LEUKOCYTES-REFLEX NEGATIVE (Negative); URINE NITRITE-REFLEX NEGATIVE (Negative); URINE PROTEIN (DIPSTICK) TRACE (Negative); URINE SPECIFIC GRAVITY 1.025 (1.005-1.035); URINE UROBILINOGEN 0.2 E.U./dl (0.2-1.0)
[2017-09-11 02:40] LABS: ICTOTEST (BILI CONFIRMATORY) Negative (Negative); URINE BILIRUBIN NEGATIVE (Negative)
[2017-09-11 04:46] VITALS: BP 131/63
[2017-09-11 05:45] LABS: HEMATOCRIT 32.1 % (37.0-47.0); RDW 18.8 % (10.5-14.5)
[2017-09-11 05:52] LABS: HEMOGLOBIN 10.8 gm/dL (12.0-15.0); MCH 26.9 pg (26.0-34.0); MCHC 33.8 g/dL (28.0-37.0); MCV 79.5 fL (80.0-100.0); RBC 4.03 mil/uL (4.20-5.00)
[2017-09-11 05:53] LABS: CREATININE 0.6 mg/dL (0.6-1.0); POTASSIUM 3.4 mmol/L (3.5-5.1)
[2017-09-11 05:54] LABS: PROTIME 10.1 Seconds (9.3-11.4)
[2017-09-11 05:55] LABS: WBC 1.4 thou/uL (4.0-11.0)
[2017-09-11 08:15] VITALS: BP 108/62
[2017-09-11 19:47] VITALS: BP 110/53
[2017-09-12 04:20] VITALS: BP 130/79
[2017-09-12 06:35] LABS: RDW 18.5 % (10.5-14.5)
[2017-09-12 06:37] LABS: HEMATOCRIT 32.3 % (37.0-47.0); HEMOGLOBIN 10.9 gm/dL (12.0-15.0); MCH 26.8 pg (26.0-34.0); MCHC 33.6 g/dL (28.0-37.0); MCV 79.8 fL (80.0-100.0); PLATELET COUNT 165 thou/uL (150-400); RBC 4.05 mil/uL (4.20-5.00)
[2017-09-12 06:41] LABS: WBC 1.3 thou/uL (4.0-11.0)
[2017-09-12 06:47] LABS: CREATININE 0.7 mg/dL (0.6-1.0); POTASSIUM 3.2 mmol/L (3.5-5.1)
[2017-09-12 07:01] VITALS: BP 126/78
[2017-09-12 08:41] LABS: ABSOLUTE NEUTROPHILS 0.6 thou/uL (1.4-8.2); ANISOCYTOSIS 2+; MICROCYTES 2+; PLATELET ESTIMATE NORMAL
[2017-09-12 15:37] VITALS: BP 107/67
[2017-09-12 20:05] VITALS: BP 121/48
[2017-09-13 04:36] VITALS: BP 116/71
[2017-09-13 06:25] LABS: HEMOGLOBIN 10.8 gm/dL (12.0-15.0)
[2017-09-13 06:26] LABS: HEMATOCRIT 32.3 % (37.0-47.0); MCH 26.6 pg (26.0-34.0); MCHC 33.3 g/dL (28.0-37.0); MCV 79.8 fL (80.0-100.0); PLATELET COUNT 153 thou/uL (150-400); RBC 4.04 mil/uL (4.20-5.00); RDW 18.6 % (10.5-14.5)
[2017-09-13 06:34] LABS: WBC 1.3 thou/uL (4.0-11.0)
[2017-09-13 06:46] LABS: CALCIUM 8.6 mg/dL (8.5-10.1); CREATININE 0.7 mg/dL (0.6-1.0); POTASSIUM 3.9 mmol/L (3.5-5.1)
[2017-09-13 06:50] LABS: % SATURATION 29 % (20-39); IRON 62 ug/dL (50-170); TIBC 214 ug/dL (250-450)
[2017-09-13 07:04] LABS: FOLIC ACID 14.3 ng/mL (8.6-58.9); TSH 2.724 uIU/mL (0.358-3.740)
[2017-09-13 07:24] VITALS: BP 121/61
[2017-09-13 09:02] LABS: ABSOLUTE NEUTROPHILS 0.6 thou/uL (1.4-8.2); ANISOCYTOSIS 2+; PLATELET ESTIMATE NORMAL
[2017-09-13 10:00] VITALS: BP 121/61
[2017-09-13 14:04] VITALS: BP 121/61
[2017-09-13 14:08] LABS: HEMATOLOGY COMMENTS Note: (()); HEMOGLOBIN 10.6 g/dL (11.1-15.9)
[2017-09-13] MEDS ORDERED: NYSTATIN100000 UNI SW&SWALLOW (14:36)
[2017-09-13] MEDS ORDERED: FLUCONAZOLE 10100 MG PO (14:36)
[2017-09-13 15:22] VITALS: BP 121/61
== END 2017-09-13 15:35 | disposition home or self-care (01) | DRG 368 ==
LOC: ER 09:41 → EROBS 13:30 → 4E 13:30
PROVIDERS: Emergency Medicine; Hospitalist; Internal Medicine Hematology & Oncology
PROC: 0DB58ZX Excision of Esophagus, Via Natural or Artificial Opening Endoscopic, Diagnostic (ICD-10-PCS; principal; 2017-09-11)
DX: B37.81 Candidal esophagitis (principal); E43 Unspecified severe protein-calorie malnutrition; C85.90 Non-Hodgkin lymphoma, unspecified, unspecified site; J96.11 Chronic respiratory failure with hypoxia; Z68.42 Body mass index [BMI] 45.0-49.9, adult; I10 Essential (primary) hypertension; D50.9 Iron deficiency anemia, unspecified; J44.9 Chronic obstructive pulmonary disease, unspecified; K44.9 Diaphragmatic hernia without obstruction or gangrene; I27.20 Pulmonary hypertension, unspecified; L93.0 Discoid lupus erythematosus; G89.4 Chronic pain syndrome; M79.7 Fibromyalgia; F41.9 Anxiety disorder, unspecified; G47.33 Obstructive sleep apnea (adult) (pediatric); K21.9 Gastro-esophageal reflux disease without esophagitis; I73.00 Raynaud's syndrome without gangrene; E66.9 Obesity, unspecified; D86.9 Sarcoidosis, unspecified; Z88.8 Allergy status to other drugs, medicaments and biological substances; Z85.3 Personal history of malignant neoplasm of breast; Z90.710 Acquired absence of both cervix and uterus; Z79.899 Other long term (current) drug therapy
CPT/HCPCS: 10783; 62110; 62900

== ENCOUNTER 2017-09-22 18:03 | Inpatient (IN) | payer OTHER ==
[~2017-09-22] VITALS: Ht 162.6 cm; Wt 123.8 kg
--- NOTE | ~2017-09-22 | HC ---
[facility] [place] [address] CONSULTATION Name: FRANCOIS LUGO Room #: 459-P ADM IN M.R.#: [id number] Admission: 09/22/17 Attend Phys: Cynthia Rene MD Discharge: Date of : 53 Report #: [id number] THIS REPORT FOR: //name// CC: Cynthia Rene Mathew Box DATE OF SERVICE: 09/25/2017 INFECTIOUS DISEASES CONSULTATION REASON FOR CONSULTATION: I was asked to evaluate concerning pneumonia and Jael esophagitis. HISTORY OF PRESENT ILLNESS: The patient is a 61-year-old with known history of non-Hodgkin lymphoma, sarcoidosis and lupus erythematosus and underlying COPD. She has had neutropenia. She remains on chronic steroids. She was treated in August for left lower lobe pneumonia due to Haemophilus and rhinovirus. Subsequently, she was diagnosed with Jael esophagitis on 09/10/2017, placed on fluconazole. Presented again on 09/22/2017 with increased fever up to 100 degrees associated with increased cough and sputum production of brown sputum. No hemoptysis. She has underlying COPD and uses oxygen 3-1/2 liters at baseline. Had some dysphagia and odynophagia. No chills or sweats. No pleuritic chest pain. No nausea or vomiting. No diarrhea. She was placed on broad antibiotic coverage including vancomycin, Zosyn, Levaquin and continued on fluconazole. She was also treated with Neupogen and Solu-Medrol. Her white count has dropped down to 0.7. REVIEW OF SYSTEMS: She notes no headache or change in mental status. No visual changes. No oral lesions other than what is noted on her endoscopy earlier in the month. She noticed no skin rashes. No adenopathy. No chest pain or palpitations. She has had no dysuria or frequency. No arthritis symptoms and no neurologic changes. She does have ongoing immunologic issues with her lupus and sarcoidosis. PAST MEDICAL HISTORY, FAMILY HISTORY AND SOCIAL HISTORY: Unchanged from her consultation of 07/31/2017 admission. ALLERGIES: VERSED. MEDICATIONS: As noted on her MAY, now including Solu-Medrol, Neupogen vancomycin, Zosyn, Levaquin, fluconazole. PHYSICAL EXAMINATION: VITAL SIGNS: Afebrile and hemodynamically stable. Blood pressure is 155/86. She is on 3 liters of oxygen per nasal cannula. [facility] [address] [place] [address] CONSULTATION Name: FRANCOIS LUGO Room #: 459-P [facility] IN M.R.#: [id number] Admission: 09/22/17 Attend Phys: Cynthia Rene MD Discharge: Date of : 53 Report #: [id number] GENERAL: She was resting comfortably in bed. Upon awakening, she was in no distress. She was conversant, pleasant. HEENT: Remarkable for small blister to her lower lip. Mouth was dry. Eyes unremarkable. NECK: Supple, no thyromegaly or mass. LUNGS: Coarse breath sounds bilaterally, mostly heard in the left base posteriorly. She had upper airway rhonchi. She had a loose raspy cough. HEART: Regular without murmur. No gallop or rub. ABDOMEN: Obese, soft, nontender, no hepatosplenomegaly or mass appreciated. EXTREMITIES: Unremarkable. She was obese. NEUROLOGIC: Nonfocal. Cranial nerves intact. No palpable adenopathy. LABORATORY STUDIES: Vancomycin trough was 18. MRSA screen negative. No sputum culture yet obtained. Blood cultures negative to date. Urinalysis unremarkable. Creatinine 0.7. Hemoglobin 10.9, WBC 0.7, 35% segs, 5% bands, platelet count of 139,000. I reviewed the chest x-ray and CT scan of her chest, which did show left lower lobe infiltrate. She also has some mediastinal changes on the right, which were stable. IMPRESSION: A 61-year-old, with non-Hodgkin lymphoma, sarcoidosis, systemic lupus erythematosus and oxygen dependent chronic obstructive pulmonary system, presents with Jael esophagitis, pneumonia, left lower lobe; neutropenia. Concerned about possibility of aspiration given her esophagitis symptoms. She was recently diagnosed with Haemophilus influenzae and rhinovirus pneumonia. RECOMMENDATION: Given her significant comorbidities and immunosuppression, I would recommend that we continue her IV antibiotic therapy with vancomycin, Zosyn and Levaquin. We will obtain viral respiratory panel, sputum culture, urine antigens. Await blood culture results. I agree with giving Neupogen, increase her white count. I would pursue bone marrow biopsy at some point to reassess her bone marrow regarding the lymphoma. <ELECTRONICALLY SIGNED> By: Paul Boyd MD 09/28/17 1003 1806 2301 Paul Boyd MD /nt
--- NOTE | ~2017-09-22 | HC ---
[facility] [place] [address] CONSULTATION Name: FRANCOIS LUGO Room #: 227-P ADM IN M.R.#: [id number] Admission: 09/22/17 Attend Phys: Cynthia Rene MD Discharge: Date of : 53 Report #: [id number] THIS REPORT FOR: //name// CC: Kevin Munoz HISTORY OF PRESENT ILLNESS: The patient is a 61-year-old female with multiple medical problems. I have been asked to see for recent history of yeast esophagitis and recurring symptoms of expectoration of foul sputum. She denies dysphagia or odynophagia or chest pain. Her medical history is well documented in the chart, but includes multiple comorbidities including a right-sided breast cancer, uterine cancer, non-Hodgkin lymphoma, stage 4, treated with chemotherapy and maintenance chemotherapy; sarcoidosis; pulmonary hypertension; asthma; sleep apnea; lupus; fibromyalgia; Raynaud's; spiral fracture of the left arm; fused vertebrae in the neck; depression, anxiety with panic attacks; gastroesophageal reflux; oxygen dependence; hiatal hernia; ovarian removal; implanted pain pump; pneumonia; severe Jael esophagitis, diagnosed on 09/11 by upper endoscopy. MEDICATIONS ON PRESENTATION: Include Flexeril, prednisone, bethanechol, Lyrica, albuterol, fluconazole, nystatin, Tylenol, polyethylene glycol, lactobacillus, loperamide, Drisdol. FAMILY HISTORY AND SOCIAL HISTORY: Noncontributory. REVIEW OF SYSTEMS: Negative for weight loss, weakness or fatigue. She denies head, eyes, ears, nose or throat complaints. Denies chest pain, chest palpitation, chest pressure, cough, shortness of breath, wheezing, genitourinary, musculoskeletal or neuropsychiatric complaints, beyond that mentioned above. PHYSICAL EXAMINATION: VITAL SIGNS: Currently afebrile. Vital signs are stable. HEENT: Nonicteric. NECK: No JVD, thyromegaly or bruits. CARDIOVASCULAR: Regular. LUNGS: Clear anteriorly. ABDOMEN: Soft, nondistended, nontender, normoactive bowel sounds. No hepatosplenomegaly. No stigmata of chronic liver disease. No abnormal masses or bruits. EXTREMITIES: Deferred. NEUROLOGIC: Deferred. RECTAL: Deferred. PERTINENT LABORATORY DATA: White count 1.4 on admission. Hemoglobin 12.0, platelet count 174. MCV and RDW are normal. Chemistry: Sodium 138, potassium 3.9, venous bicarbonate 34, BUN 8, creatinine 0.7, glucose 139. X-ray reveals CT [place] [address] CONSULTATION Name: FRANCOIS LUGO Room #: [address] [place] [address] IN .R.#: [id number] Admission: 09/22/17 Attend Phys: Cynthia Rene MD Discharge: Date of : 53 Report #: [id number] ASSESSMENT AND PLAN: In summary, the patient has documented candidal esophagitis, status post treatment ongoing with resolution of esophageal symptoms. I suspect that her expectoration of foul sputum is secondary to her pneumonia and will continue her treatment with Diflucan and fluconazole for at least 2 more weeks as she is at risk with her neutropenia. Of course, systemic antibiotics will worsen her risk of candidiasis. However, she does have an active pulmonary infiltrate, which should be treated. We will follow concurrently. Thanks again for allowing us to participate in the care of this nice woman. <ELECTRONICALLY SIGNED> By: Marcellus Pleitez MD 10/01/17 1029 1027 1109 Francis Watson MD /nt
--- NOTE | ~2017-09-22 | EKG ---
[place] [address] [facility] [place] [address] ELECTROCARDIOGRAM REPORT Name: FRANCOIS LUGON Room #: 459-P ADM IN M.R.#: [id number] Admission: 09/22/17 Attend Phys: Cynthia Rene MD Discharge: Date of : 53 Report #: [id number] THIS REPORT FOR: //name// [facility] ED Test Date: 2017-09-22 Test Time: 19:47:38 Pat Name: FRANCOIS LUGO Department: Room: Gender: F [employer] Baler: JOHNY : 1955 Requested By: Selma Fernandes Order Number: [id number] MD: Cliff Olson Measurements Intervals [place] Rate: 124 P: 46 ID: 135 QRS: -58 QRSD: 81 T: 3 QT: 297 QTc: 427 Interpretive Statements Sinus tachycardia Left axis deviation Abnormal R-wave progression, late transition Borderline T abnormalities, diffuse leads Compared to ECG 09/10/2017 13:48:33 No significant change was found Electronically Signed On 09-25-2017 7:58:23 CDT by Cliff Olson [email or web address] <ELECTRONICALLY SIGNED> By: Cliff Olson MD, [facility] 09/25/17 0758 46 46 Cliff Olson MD, [facility] /EPI
[~2017-09-22 18:03] MED LIST changes: +FLUCONAZOLE 10100 MG PO; +NYSTATIN100000 UNI SW&SWALLOW
[2017-09-22 18:55] LABS: HEMATOCRIT 35.2 % (37.0-47.0); MCH 27.2 pg (26.0-34.0); PLATELET COUNT 174 thou/uL (150-400); RDW 18.7 % (10.5-14.5)
[2017-09-22 19:00] LABS: WBC 1.4 thou/uL (4.0-11.0)
[2017-09-22 19:02] VITALS: BP 111/72
[2017-09-22 19:52] LABS: CALCIUM 8.8 mg/dL (8.5-10.1); CREATININE 0.7 mg/dL (0.6-1.0); POTASSIUM 3.9 mmol/L (3.5-5.1)
[2017-09-22 20:43] LABS: ABSOLUTE NEUTROPHILS 0.6 thou/uL (1.4-8.2); ANISOCYTOSIS 1+; ATYPICAL LYMPHS 2 %
[2017-09-22 20:44] LABS: OVALOCYTES 1+
[2017-09-22 20:48] LABS: URINE BILIRUBIN NEGATIVE (Negative); URINE BLOOD NEGATIVE (Negative); URINE CLARITY CLEAR; URINE COLOR YELLOW; URINE GLUCOSE-RANDOM* NEGATIVE (Negative); URINE KETONES NEGATIVE (Negative); URINE LEUKOCYTES NEGATIVE (Negative); URINE NITRITE NEGATIVE (Negative); URINE PROTEIN (DIPSTICK) NEGATIVE (Negative)
[2017-09-22 22:23] VITALS: BP 124/70
[2017-09-22 23:00] VITALS: BP 108/65
[2017-09-23 03:54] VITALS: BP 108/65
[2017-09-23 06:32] LABS: HEMATOCRIT 35.1 % (37.0-47.0); HEMOGLOBIN 11.8 gm/dL (12.0-15.0); MCHC 33.5 g/dL (28.0-37.0); MCV 80.6 fL (80.0-100.0); RBC 4.36 mil/uL (4.20-5.00); RDW 18.6 % (10.5-14.5)
[2017-09-23 06:38] LABS: CALCIUM 9.1 mg/dL (8.5-10.1); CREATININE 0.8 mg/dL (0.6-1.0); POTASSIUM 3.8 mmol/L (3.5-5.1)
[2017-09-23 07:32] VITALS: BP 104/67
[2017-09-23 15:10] VITALS: BP 116/65
[2017-09-23 19:15] VITALS: BP 126/60
[2017-09-24 04:49] VITALS: BP 107/53
[2017-09-24 06:45] LABS: RDW 18.2 % (10.5-14.5)
[2017-09-24 06:47] LABS: HEMATOCRIT 32.2 % (37.0-47.0); HEMOGLOBIN 10.9 gm/dL (12.0-15.0); MCH 27.1 pg (26.0-34.0); MCHC 33.8 g/dL (28.0-37.0); MCV 80.1 fL (80.0-100.0); RBC 4.02 mil/uL (4.20-5.00)
[2017-09-24 06:56] LABS: WBC 0.7 thou/uL (4.0-11.0)
[2017-09-24 06:57] LABS: ALBUMIN 2.3 g/dL (3.4-5.0); CREATININE 0.7 mg/dL (0.6-1.0); POTASSIUM 3.5 mmol/L (3.5-5.1); TOTAL BILIRUBIN 0.5 mg/dL (<0.1-1.0)
[2017-09-24 07:40] VITALS: BP 111/67
[2017-09-24 16:25] VITALS: BP 137/66
[2017-09-24 19:37] VITALS: BP 134/75
[2017-09-25 04:52] VITALS: BP 134/83
[2017-09-25 08:00] VITALS: BP 129/84
[2017-09-25 10:44] VITALS: BP 129/84
[2017-09-25 13:12] LABS: COMPLEMENT-C3 160 mg/dL (82-167); COMPLEMENT-C4 37 mg/dL (14-44)
[2017-09-25 16:00] VITALS: BP 155/86
[2017-09-25 20:00] VITALS: BP 148/83
[2017-09-26 04:00] VITALS: BP 133/64
[2017-09-26 06:22] LABS: HEMOGLOBIN 10.8 gm/dL (12.0-15.0); MCHC 33.1 g/dL (28.0-37.0)
[2017-09-26 06:25] LABS: HEMATOCRIT 32.6 % (37.0-47.0); MCH 26.8 pg (26.0-34.0); PLATELET COUNT 156 thou/uL (150-400); RBC 4.03 mil/uL (4.20-5.00); RDW 17.7 % (10.5-14.5)
[2017-09-26 06:32] LABS: CALCIUM 9.1 mg/dL (8.5-10.1); CREATININE 0.9 mg/dL (0.6-1.0); POTASSIUM 3.7 mmol/L (3.5-5.1)
[2017-09-26 07:45] VITALS: BP 160/93
[2017-09-26 08:13] LABS: ABSOLUTE NEUTROPHILS 0.6 thou/uL (1.4-8.2); ATYPICAL LYMPHS 2 %; MYELOCYTES 2 %
[2017-09-26 08:14] LABS: ANISOCYTOSIS 1+
[2017-09-26 09:32] VITALS: BP 146/80
[2017-09-26 13:48] VITALS: BP 146/80
[2017-09-26 16:12] VITALS: BP 153/84
[2017-09-26 20:02] VITALS: BP 144/77
[2017-09-27 04:51] VITALS: BP 131/76
[2017-09-27 07:39] VITALS: BP 150/81
[2017-09-27 08:12] LABS: HEMOGLOBIN 10.6 gm/dL (12.0-15.0)
[2017-09-27 08:13] LABS: HEMATOCRIT 31.6 % (37.0-47.0); MCH 27.3 pg (26.0-34.0); MCHC 33.6 g/dL (28.0-37.0); MCV 81.1 fL (80.0-100.0); PLATELET COUNT 159 thou/uL (150-400); RBC 3.89 mil/uL (4.20-5.00); RDW 18.2 % (10.5-14.5)
[2017-09-27 08:19] LABS: WBC 0.9 thou/uL (4.0-11.0)
[2017-09-27 08:53] LABS: ABSOLUTE NEUTROPHILS 0.4 thou/uL (1.4-8.2); ANISOCYTOSIS 1+; NUCLEATED RBCS 1 /100WBC; PLATELET ESTIMATE NORMAL; POLYCHROMASIA SLIGHT; TOXIC GRANULATION SLIGHT
[2017-09-27 15:30] VITALS: BP 152/79
[2017-09-27 20:45] VITALS: BP 165/90
[2017-09-28 04:42] VITALS: BP 171/84
[2017-09-28 05:01] LABS: MCH 26.8 pg (26.0-34.0); MCHC 33.3 g/dL (28.0-37.0); MCV 80.4 fL (80.0-100.0); PLATELET COUNT 175 thou/uL (150-400); RBC 4.11 mil/uL (4.20-5.00); RDW 17.9 % (10.5-14.5)
[2017-09-28 05:02] LABS: CALCIUM 8.8 mg/dL (8.5-10.1); CREATININE 0.8 mg/dL (0.6-1.0); POTASSIUM 3.9 mmol/L (3.5-5.1)
[2017-09-28 05:06] LABS: WBC 0.7 thou/uL (4.0-11.0)
[2017-09-28 07:18] VITALS: BP 177/88
[2017-09-28 08:09] LABS: ABSOLUTE NEUTROPHILS 0.3 thou/uL (1.4-8.2); MYELOCYTES 1 %; NUCLEATED RBCS 1 /100WBC; PLATELET ESTIMATE NORMAL
[2017-09-28 09:09] LABS: ANA INTERPRETATION Positive (Negative)
[2017-09-28 22:06] LABS: ADENOVIRUS Negative (Negative); INFLUENZA A Negative (Negative); INFLUENZA B Negative (Negative); METAPNEUMOVIRUS Negative (Negative); PARAINFLUENZA 1 Negative (Negative); PARAINFLUENZA 2 Negative (Negative); PARAINFLUENZA 3 Negative (Negative); RHINOVIRUS Negative (Negative); RSV A Negative (Negative); RSV B Negative (Negative)
[2017-09-28 22:44] VITALS: BP 136/73
[2017-09-29 07:30] VITALS: BP 155/88
[2017-09-29 08:23] LABS: CALCIUM 8.7 mg/dL (8.5-10.1); CREATININE 0.7 mg/dL (0.6-1.0); POTASSIUM 3.6 mmol/L (3.5-5.1)
[2017-09-29 08:44] LABS: HEMOGLOBIN 11.1 gm/dL (12.0-15.0); MCHC 33.8 g/dL (28.0-37.0); PLATELET COUNT 134 thou/uL (150-400); RBC 4.13 mil/uL (4.20-5.00); RDW 17.9 % (10.5-14.5)
[2017-09-29 08:49] LABS: WBC 0.7 thou/uL (4.0-11.0)
[2017-09-29 09:10] LABS: ABSOLUTE NEUTROPHILS 0.3 thou/uL (1.4-8.2); PLATELET ESTIMATE SLIGHTLY DECREASED
[2017-09-29 09:11] LABS: ANISOCYTOSIS 1+; TOXIC GRANULATION SLIGHT
[2017-09-29 10:19] VITALS: BP 155/88
[2017-09-29 20:27] VITALS: BP 174/90
[2017-09-29 23:00] VITALS: BP 145/67
[2017-09-30 06:42] LABS: HEMATOCRIT 35.4 % (37.0-47.0)
[2017-09-30 06:44] LABS: HEMOGLOBIN 11.7 gm/dL (12.0-15.0); MCH 26.8 pg (26.0-34.0); MCHC 32.9 g/dL (28.0-37.0); MCV 81.5 fL (80.0-100.0); PLATELET COUNT 120 thou/uL (150-400); RBC 4.35 mil/uL (4.20-5.00); RDW 17.9 % (10.5-14.5)
[2017-09-30 06:53] LABS: WBC 1.7 thou/uL (4.0-11.0)
[2017-09-30 06:54] VITALS: BP 164/83
[2017-09-30 06:54] LABS: ALBUMIN 2.7 g/dL (3.4-5.0); CALCIUM 8.8 mg/dL (8.5-10.1); CREATININE 0.8 mg/dL (0.6-1.0); MAGNESIUM 2.2 mg/dL (1.8-2.4); PHOSPHORUS 4.2 mg/dL (2.5-4.9); POTASSIUM 3.9 mmol/L (3.5-5.1)
[2017-09-30 11:21] LABS: ABSOLUTE NEUTROPHILS 1.3 thou/uL (1.4-8.2); METAMYELOCYTES 2 %
[2017-09-30 11:22] LABS: ANISOCYTOSIS 1+; OVALOCYTES FEW
[2017-09-30 19:00] VITALS: BP 117/59
[2017-10-01 08:13] LABS: HEMATOCRIT 35.8 % (37.0-47.0); HEMOGLOBIN 11.7 gm/dL (12.0-15.0); MCH 26.7 pg (26.0-34.0); MCHC 32.7 g/dL (28.0-37.0); MCV 81.7 fL (80.0-100.0); PLATELET COUNT 100 thou/uL (150-400); RBC 4.38 mil/uL (4.20-5.00); RDW 17.5 % (10.5-14.5); WBC 2.8 thou/uL (4.0-11.0)
[2017-10-01 08:33] LABS: ALBUMIN 2.7 g/dL (3.4-5.0); CALCIUM 8.6 mg/dL (8.5-10.1); CREATININE 0.7 mg/dL (0.6-1.0); MAGNESIUM 2.3 mg/dL (1.8-2.4); POTASSIUM 3.9 mmol/L (3.5-5.1); TOTAL BILIRUBIN 0.9 mg/dL (<0.1-1.0); TOTAL PROTEIN 5.1 g/dL (6.4-8.2)
[2017-10-01 08:42] VITALS: BP 157/78
[2017-10-01 11:12] LABS: ABSOLUTE NEUTROPHILS 2.3 thou/uL (1.4-8.2); METAMYELOCYTES 1 %
[2017-10-01 11:22] LABS: ANISOCYTOSIS 1+; MICROCYTES 1+; OVALOCYTES FEW
[2017-10-01 20:09] VITALS: BP 149/79
[2017-10-02 07:50] LABS: HEMATOCRIT 36.3 % (37.0-47.0); HEMOGLOBIN 11.9 gm/dL (12.0-15.0); MCH 26.9 pg (26.0-34.0); MCHC 32.9 g/dL (28.0-37.0); MCV 81.7 fL (80.0-100.0); PLATELET COUNT 92 thou/uL (150-400); RBC 4.44 mil/uL (4.20-5.00); RDW 18.1 % (10.5-14.5); WBC 3.5 thou/uL (4.0-11.0)
[2017-10-02 08:00] VITALS: BP 157/92
[2017-10-02 08:04] LABS: ANION GAP < 0 mmol/L (7-16); BUN 14 mg/dL (7-18); CALCIUM 8.5 mg/dL (8.5-10.1); CHLORIDE 105 mmol/L (98-107); CO2 39 mmol/L (21-32); CREATININE 0.7 mg/dL (0.6-1.0); GLUCOSE 123 mg/dL (74-106); POTASSIUM 3.7 mmol/L (3.5-5.1); SODIUM 143 mmol/L (136-145)
[2017-10-02 08:34] LABS: ABSOLUTE NEUTROPHILS 2.8 thou/uL (1.4-8.2); PLATELET ESTIMATE DECREASED
[2017-10-02] MEDS ORDERED: PREDNISONE 20 M20 M1 PO (13:49)
[2017-10-02] MEDS ORDERED: CEFDINIR300 MG PO (13:49)
[2017-10-02 14:27] VITALS: BP 155/88
== END 2017-10-02 14:58 | disposition home health service (06) | DRG 177 ==
LOC: ER 18:03 → 4W 21:49 → EROBS 21:49 → 4W 23:00 → SICU 09-28 16:02 → ENTRNSPT 10-02 14:43 → EDTRNSPTSTS 10-02 14:46 → SICU 10-02 14:58
PROVIDERS: Emergency Medicine; Hospitalist; Internal Medicine Hematology & Oncology; Nurse Practitioner Family; Specialist
PROC: 07DR3ZX Extraction of Iliac Bone Marrow, Percutaneous Approach, Diagnostic (ICD-10-PCS; principal; 2017-09-28)
DX: J69.0 Pneumonitis due to inhalation of food and vomit (principal); E43 Unspecified severe protein-calorie malnutrition; J96.00 Acute respiratory failure, unspecified whether with hypoxia or hypercapnia; C85.90 Non-Hodgkin lymphoma, unspecified, unspecified site; B37.81 Candidal esophagitis; J44.1 Chronic obstructive pulmonary disease with (acute) exacerbation; Z68.42 Body mass index [BMI] 45.0-49.9, adult; I27.20 Pulmonary hypertension, unspecified; F32.9 Major depressive disorder, single episode, unspecified; F41.9 Anxiety disorder, unspecified; K21.9 Gastro-esophageal reflux disease without esophagitis; D86.9 Sarcoidosis, unspecified; E66.9 Obesity, unspecified; M32.9 Systemic lupus erythematosus, unspecified; D70.9 Neutropenia, unspecified; I50.9 Heart failure, unspecified; G89.4 Chronic pain syndrome; G47.33 Obstructive sleep apnea (adult) (pediatric); Z79.899 Other long term (current) drug therapy; Z90.721 Acquired absence of ovaries, unilateral; Z85.3 Personal history of malignant neoplasm of breast; Z85.42 Personal history of malignant neoplasm of other parts of uterus; Z90.710 Acquired absence of both cervix and uterus; Z88.8 Allergy status to other drugs, medicaments and biological substances; Z99.81 Dependence on supplemental oxygen
CPT/HCPCS: 10045; 15001

== ENCOUNTER 2017-10-12 11:27 | Inpatient (IN) | payer OTHER ==
[~2017-10-12] VITALS: Ht 162.6 cm; Wt 128.1 kg
--- NOTE | ~2017-10-12 | HC ---
[facility] [place] [address] CONSULTATION Name: FRANCOIS LUGO Room #: 355-P ADM IN M.R.#: [id number] Admission: 10/12/17 Attend Phys: Kevin Jackman MD Discharge: Date of : 53 Report #: [id number] THIS REPORT FOR: //name// CC: Jamin Jackman Mathew Box DATE OF SERVICE: 10/13/2017 TYPE OF REPORT: Infectious diseases consultation. REASON FOR CONSULTATION: Evaluate respiratory tract infection and asthma exacerbation. HISTORY OF PRESENT ILLNESS: The patient was a 61-year old known to me from her last hospitalization where she was dismissed 10 days ago, were diagnosed with neutropenic pneumoniae and Jael esophagitis. No organisms were identified. Dismissed on cefdinir and fluconazole. While at home, she developed acute onset of shortness of breath with associated wheezing. She is on 3 liters of oxygen per nasal cannula. Did have some hypoxia. Given breathing treatments in the Emergency Room and admitted from there. Starts to feel better now over the past 12-24 hours. Intermittent cough with no sputum production. No fever, chills or sweats. No nausea, vomiting or diarrhea. No chest pain. She was recently diagnosed with myelodysplastic syndrome, Q5-minus positive. She has been followed by Oncology. Specifics of her treatment are yet to be determined. In addition, she has underlying sarcoidosis, which has been relatively stable. She has ongoing splenomegaly and also has a history of marginal zone lymphoma. Her most recent bone marrow biopsy, however, did not show any evidence of active lymphoma. She has underlying COPD and asthma and has remained on steroids. ALLERGIES: Midazolam. MEDICATIONS: As noted on her MAR, now on vancomycin, Zosyn and Levaquin. PAST MEDICAL HISTORY: Unchanged from her last consultation. FAMILY HISTORY: Unchanged from her last consultation. SOCIAL HISTORY: Unchanged from her last consultation. REVIEW OF SYSTEMS: Ten-point review negative otherwise described above. PHYSICAL EXAMINATION: VITAL SIGNS: Afebrile and hemodynamically stable. GENERAL: She was lying in bed in no acute distress. She is on 3 liters of oxygen per nasal cannula. She was obese. [facility] [address] [place] [address] CONSULTATION Name: FRANCOIS LUGO Room #: 355-P [facility] IN M.R.#: [id number] Admission: 10/12/17 Attend Phys: Kevin Jackman MD Discharge: Date of : 53 Report #: [id number] HEENT: Eyes: Sclerae nonicteric. No conjunctivitis. Mouth: Unremarkable with no thrush or mucosal lesion. NECK: Thick, without thyromegaly or adenopathy. No palpable peripheral adenopathy. SKIN: Unremarkable with no rashes or decubiti. LUNGS: Clear with no adventitial sounds. Wheezing has resolved. HEART: Regular, without murmur, gallop or rub. ABDOMEN: Obese, soft and nontender. No hepatosplenomegaly or mass. EXTREMITIES: No significant peripheral edema. NEUROLOGICAL: Nonfocal. RADIOLOGICAL DATA: Chest x-ray, left lower lobe atelectasis. LABORATORY DATA: Hemoglobin 10.9; WBC 0.6 and platelet count 110,000. Sodium 145, potassium 3.9, bicarbonate 29 and creatinine 0.8. Lactate was 1.5. Procalcitonin negative. BNP 126. Blood cultures negative to date. Sputum culture pending. IMPRESSION: 1. Myelodysplastic syndrome with ongoing neutropenia. 2. Chronic obstructive pulmonary disease exacerbation. 3. Recent pneumonia, on antibiotic therapy. 4. Recent Jael esophagitis, resolved. 5. Obesity. 6. Sarcoidosis. 7. Splenomegaly. 8. History of marginal zone lymphoma. 9. Gastroesophageal reflux. 10. Lupus and fibromyalgia. RECOMMENDATIONS: We will continue Levaquin and corticosteroids. She appears improved. So far no evidence of uncontrolled pneumonia. We will await her sputum culture results. If continued improvement, may be reasonable to continue on the Levaquin as an outpatient to complete a course of treatment as her steroids are tapered. <ELECTRONICALLY SIGNED> By: Paul Boyd MD 10/16/17 1154 1548 0205 Paul Boyd MD /nt
--- NOTE | ~2017-10-12 | EKG ---
[address] [place] [address] ELECTROCARDIOGRAM REPORT Name: FRANCOIS LUGO Room #: 170-6 ADM IN M.R.#: [id number] Admission: 10/12/17 Attend Phys: Kevin Jackman MD Discharge: Date of : 53 Report #: [id number] THIS REPORT FOR: //name// [facility] ED Test Date: 2017-10-12 Test Time: 11:55:12 Pat Name: FRANCOIS LUGO Department: Room: 170 Gender: F [employer]: JOHNY : 1955 Requested By: Avinash Lance Order Number: [id number] MD: Cliff Olson Measurements Intervals [place] Rate: 116 P: 55 VA: 131 QRS: -39 QRSD: 92 T: 15 QT: 328 QTc: 456 Interpretive Statements Sinus tachycardia Atrial premature complexes Left axis deviation Abnormal R-wave progression, late transition Nonspecific ST segment abnormality Compared to ECG 09/22/2017 19:47:38 Atrial premature complex(es) now present Electronically Signed On 10-12-2017 16:54:01 CDT by Cliff Olson [email or web address] <ELECTRONICALLY SIGNED> By: Cliff Olson MD, [facility] 10/12/17 1654 1155 1155 Cliff Olson MD, [facility] /EPI
--- NOTE | ~2017-10-12 | HC ---
[facility] [place] [address] CONSULTATION Name: FRANCOIS LUGO Room #: 355-P ADM IN M.R.#: [id number] Admission: 10/12/17 Attend Phys: Kevin Jackman MD Discharge: Date of : 53 Report #: [id number] THIS REPORT FOR: //name// CC: Nirmala Olson MD [facility] SIENA Munoz MD REQUESTING PHYSICIAN: Kevin Jackman M.D. REASON FOR CONSULTATION: Cytopenia and history of lymphoma. HISTORY OF PRESENT ILLNESS: The patient is a very pleasant 61-year-old female who has been a patient of mine for quite some time. She had recently been in the hospital last month and was found to have neutropenia. 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 Specifically, they talked about the bone marrow being mildly hypercellular with trilineage hematopoiesis, dyspoiesis including myeloid maturation arrest and dysmegakaryopoiesis and scattered plasma cells with predominant lambda positivity. Note that they think the scattered plasma cells are probably evidence of residual marginal zone lymphoma, but not a significant amount, prior less than 2% or 3%. Also, note we have separate note showing that she has a 5q minus cytogenetics. This is a little unusual. Usually, it used to be 5q minus present with anemia and can be treated with Revlimid; however, that can cause leukopenia. The patient had fallen several times at home and had gone to a residential home and had come on to get her pain pump refilled and was found to be severely wheezing and short of air and was brought to the Emergency Room and was thought to have respiratory failure and was admitted. The patient states that she is feeling some better today. The patient denies recent fevers or chills. Does have a little bit of dysphagia, not too bad. No new headache troubles or more than usual. No new bowel changes. No new arm or leg swelling. She says her sarcoid skin rash is about the same and not too flaring at this point. She is not aware of any new masses. PAST MEDICAL HISTORY: Past history is notable for the recent diagnosis discussed with the patient at this date of myelodysplasia; also history of marginal zone lymphoma, originally from 2009, treated in the past with fludarabine, Cytoxan and rituximab, which she has completed in 11/2009, recurred in 2013. At that time, she received Treanda and rituximab. Then once again in 09/2014, she recurred and was treated with fludarabine, Cytoxan and rituximab. She has been on rituximab as some sort of maintenance, but also part treatment [address] [address] CONSULTATION Name: FRANCOIS LUGO Room #: 355-P ADM IN M.R.#: [id number] Admission: 10/12/17 Attend Phys: Kevin Jackman MD Discharge: Date of : 53 Report #: [id number] for a sarcoid. She also has a history of the sarcoid with mostly we noticed skin involvement once flaring, also has a history of severe pulmonary hypertension. History of breast cancer in 1985, history of uterine cancer in the past, history of iron deficiency, history of fibromyalgia, history of sleep apnea with oxygen, history of Raynaud syndrome, history of fused vertebra in her neck, history of depression and anxiety with panic attacks, history of GERD and history of a small hiatal hernia and splenomegaly with a spleen of about 15.3 cm on CAT scan from 08/2017. SOCIAL HISTORY: She has a very supportive who recently had hip surgery within the past month. She is a nonsmoker, nondrinker. No street drugs. I do not believe she is currently working. MEDICATIONS: At this time in the hospital include levofloxacin daily, MiraLax daily, lactobacillus daily, lorazepam p.r.n. that I ordered that she has been on before, pantoprazole 40 daily, vancomycin q.8h., Zosyn q.8h., heparin 5000 b.i.d., docusate 100 b.i.d., guaifenesin 1200 b.i.d., methylprednisolone 62.5 IV q.i.d., insulin on a sliding scale, ipratropium and albuterol q.4h. respiratory therapy, Zofran as needed and the recent Neupogen that I just added at 300 mcg daily. PHYSICAL EXAMINATION: GENERAL: The patient appears her stated age. VITAL SIGNS: Height 5 foot 4 inches, 162.6 cm. Weight is 282 pounds or 128.1 kilograms. Blood pressure recently is 106/60; O2 sat 96%, I believe, on 4 liters; respirations 20; pulse 98 and temperature 97.5. MOOD: She is alert, pleasant and anxious. HEENT: Oropharynx moist. No erythema, leukoplakia or thrush. LUNGS: Somewhat distant, may have slight rhonchi or wheeze, but not too bad. HEART: Appears regular rate. LYMPHATIC: No enlarged lymph nodes in the supraclavicular or cervical region. ABDOMEN: Very obese and cannot palpate organomegaly. EXTREMITIES: Without clubbing or cyanosis. ASSESSMENT AND PLAN: 1. 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 This is a little unusual in that the 5q minus usually presents with anemia, not so much cytopenias. There were no other specific cytogenetics found. I explained to the patient that she has a bone marrow disorder that is probably an explanation for her low white counts. We will begin the patient once again on supportive measure with Neupogen. If it is due to history of cytotoxic drugs, such as, 5-Azacitidine or Vidaza, these can be quite difficult for patients as there is quite a bit of cytopenias and subsequent risk for infection. We would like the patient to visit with one of our bone marrow disease specialist as an outpatient. She is aware of this. I will try to contact her to explain this a little bit later. [address] [address] CONSULTATION Name: FRANCOIS LUGO Room #: 355-P ADM IN M.R.#: [id number] Admission: 10/12/17 Attend Phys: Kevin Jackman MD Discharge: Date of : 53 Report #: [id number] 2. History of sarcoid. Defer to Dr. Munoz. 3. Respiratory failure. Agree with antibiotics, steroids and inhalation therapy. 4. Asthma. Same meds as above. 5. Pulmonary hypertension, followed by Dr. Olson in Pulmonary. 6. History of marginal zone lymphoma, minimal amounts in bone marrow, not a current issue at this point. 7. History of uterine cancer, not recurrent. 8. History of breast cancer, not recurrent. 9. History of gastroesophageal reflux disease. Continues pantoprazole. 10. Chronic pain. Follows with pain management. We will follow. <ELECTRONICALLY SIGNED> By: Farooq Frye MD 10/17/17 0711 0815 1420 Farooq Frye MD /nt
--- NOTE | ~2017-10-12 | HC ---
[facility] [place] [address] CONSULTATION Name: FRANCOIS LUGO Room #: 355-P ADM IN M.R.#: [id number] Admission: 10/12/17 Attend Phys: Kevin Jackman MD Discharge: Date of : 53 Report #: [id number] THIS REPORT FOR: //name// CC: Jamin Carmona Box TYPE OF REPORT: Pulmonary consultation. REFERRING PHYSICIAN: Kevin Jackman M.D. REASON FOR REFERRAL: Dyspnea. HISTORY OF PRESENT ILLNESS: The patient is a 61-year-old white female who is well known to this physician with multiple medical problems, presents to the Emergency Room once again with dyspnea. A pulmonary consultation was requested. Over the past 2 years, she has had at least 12-13 admissions. Her last hospitalization being on 09/22/2017. She is followed longitudinally by Dr. Felix for multiple pulmonary problems including, ADRIAN, sarcoidosis and chronic hypoxic respiratory failure. She is on 3 liters of O2. She was in her usual state of health until 1-2 days prior to presentation. She started to notice increasing dyspnea on exertion. Otherwise, denies any recent fever, chest pain, productive cough, night sweats or chills. PAST MEDICAL HISTORY: History of sarcoidosis, the details are not entirely clear; ADRIAN, on BiPAP; chronic hypoxic respiratory failure, on 3 liters of O2; questionable history of scleroderma; recurrent non-Hodgkin's lymphoma with chronic neutropenia; history of breast cancer diagnosed in 1984; history of lupus with questionable history of scleroderma; fibromyalgia, Raynaud's; pulmonary hypertension; history of asthma/COPD; status post cervical spine surgery; history of anxiety and depression; panic attacks; gastroesophageal reflux disease; hernia repair and oophorectomy. ALLERGIES: VERSED, which causes severe hallucinations. MEDICATIONS: List reviewed. This include nebulized albuterol, fluconazole, Nystatin, Omnicef, prednisone 20 mg b.i.d., Tylenol, Imodium and ergocalciferol. FAMILY HISTORY: Noncontributory. SOCIAL HISTORY: She is . She has never smoked. She denies any alcohol use. REVIEW OF SYSTEMS: As mentioned above. Otherwise, 10-point system review negative. [facility] [address] [place] [address] CONSULTATION Name: FRANCOIS LUGO Room #: 355-P [facility] IN .R.#: [id number] Admission: 10/12/17 Attend Phys: Kevin Jackman MD Discharge: Date of : 53 Report #: [id number] PHYSICAL EXAMINATION: GENERAL: She is awake and alert, in no distress. VITAL SIGNS: Temperature is 98 degrees Fahrenheit, pulse is 100, respiratory rate is 24, blood pressure 130/83 mmHg and saturation 97%. HEENT: Normocephalic and atraumatic. NECK: Supple, without any lymphadenopathy or thyromegaly. CHEST: Breath sounds are fair. Mild bilateral crackles. Mild expiratory wheezes. CARDIOVASCULAR: Normal S1 and S2. There are no murmurs or gallop. There is no JVD. There is no carotid bruit. Pulses are 2+/4+ bilaterally. ABDOMEN: Obese, soft and nontender. No organomegaly or masses felt. GENITOURINARY: Deferred. RECTAL: Deferred. EXTREMITIES: There is no cyanosis, clubbing or edema. RADIOLOGICAL DATA: Chest x-ray shows mild subsegmental left lower lobe atelectasis. BNP is 120. Procalcitonin level is less than 0.05. Electrolytes are normal. Creatinine 0.9. WBC is 0.6; hemoglobin 10.9 and platelets are 110,000. Albumin 2.9. Arterial blood gas revealed pH 7.45, pCO2 of 50 and pO2 of 84 on 4 liters of O2. IMPRESSION: 1. Progressive dyspnea in this 61-year-old white female with multiple medical problems. Chest x-ray shows possible left lower lobe infiltrates. Etiology may be related to early pneumonia. Exacerbation of underlying asthma is likely. 2. Asthma. 3. History of sarcoidosis. Please see above comments. 4. Pancytopenia. The patient is now felt to have myelodysplastic syndrome. Dr. Frye's note read. 5. Recent diagnosis of severe Jael esophagitis. 6. Obstructive sleep apnea, on home continuous positive airway pressure. 7. Chronic hypoxic respiratory failure due to obstructive sleep apnea and asthma on 3 liters of O2. 8. Non-Hodgkin's lymphoma, recurrent, currently on chemotherapy. 9. Pulmonary hypertension due to above processes. 10. History of lupus with questionable scleroderma. 11. Chronic back pain, has a pain pump. 12. Morbid obesity. RECOMMENDATIONS: Agree with plans with corticosteroids, bronchodilators and broad-spectrum antibiotics. Concur with Oncology that overall prognosis appears to be poor given her myelodysplastic syndrome. DVT and GI prophylaxis is recommended. [facility] [address] [facility] [place] [address] CONSULTATION Name: FRANCOIS LUGO Room #: 355-P ADM IN M.R.#: [id number] Admission: 10/12/17 Attend Phys: Kevin Jackman MD Discharge: Date of : 53 Report #: [id number] The findings were discussed with the patient and her . Thank you for this consultation. <ELECTRONICALLY SIGNED> By: Shai Boone MD 10/14/17 1539 1659 0230 Shai Boone MD /nt
[2017-10-12 11:30] VITALS: BP 156/84
[2017-10-12 11:58] LABS: HEMOGLOBIN 12.9 gm/dL (12.0-15.0)
[2017-10-12 12:00] LABS: HEMATOCRIT 38.9 % (37.0-47.0); MCHC 33.3 g/dL (28.0-37.0); MCV 81.2 fL (80.0-100.0); PLATELET COUNT 148 thou/uL (150-400); RBC 4.79 mil/uL (4.20-5.00); RDW 17.4 % (10.5-14.5)
[2017-10-12 12:03] LABS: WBC 0.8 thou/uL (4.0-11.0)
[2017-10-12 12:06] LABS: ANION GAP 5 mmol/L (7-16); BUN 8 mg/dL (7-18); CALCIUM 9.5 mg/dL (8.5-10.1); CHLORIDE 98 mmol/L (98-107); CO2 37 mmol/L (21-32); CREATININE 0.9 mg/dL (0.6-1.0); GLUCOSE 174 mg/dL (74-106); SODIUM 140 mmol/L (136-145)
[2017-10-12 12:15] LABS: ALBUMIN 2.9 g/dL (3.4-5.0); SGOT 20 U/L (15-37); SGPT 42 U/L (30-65); TOTAL BILIRUBIN 1.6 mg/dL (<0.1-1.0); TOTAL PROTEIN 6.7 g/dL (6.4-8.2); TROPONIN-I <0.06 ng/mL (<0.06)
[2017-10-12 12:22] LABS: BE(vivo) 9.2 mmol/L (-2 to +3); HCO3 34.5 mmol/L (22.0-26.0); pH 7.457 (7.360-7.450); sO2 96.6 % (92.0-98.0)
[2017-10-12 12:34] LABS: ABSOLUTE NEUTROPHILS 0.1 thou/uL (1.4-8.2); NUCLEATED RBCS 1 /100WBC; PLATELET ESTIMATE NORMAL
[2017-10-12 12:35] LABS: ANISOCYTOSIS 2+; POLYCHROMASIA SLIGHT
[2017-10-12 13:19] VITALS: BP 124/85
[2017-10-12 16:43] VITALS: BP 133/82
[2017-10-12 18:00] VITALS: BP 114/75
[2017-10-12 19:50] VITALS: BP 116/63
[2017-10-13 04:05] VITALS: BP 106/68
[2017-10-13 07:13] LABS: CALCIUM 8.7 mg/dL (8.5-10.1); CREATININE 0.8 mg/dL (0.6-1.0); MAGNESIUM 1.6 mg/dL (1.8-2.4); POTASSIUM 3.9 mmol/L (3.5-5.1)
[2017-10-13 08:00] VITALS: BP 147/81
[2017-10-13 10:15] LABS: RBC 4.04 mil/uL (4.20-5.00)
[2017-10-13 10:17] LABS: HEMATOCRIT 32.9 % (37.0-47.0); MCH 27.1 pg (26.0-34.0); MCHC 33.2 g/dL (28.0-37.0); MCV 81.5 fL (80.0-100.0); PLATELET COUNT 110 thou/uL (150-400); RDW 17.9 % (10.5-14.5)
[2017-10-13 10:21] LABS: HEMOGLOBIN 10.9 gm/dL (12.0-15.0); WBC 0.6 thou/uL (4.0-11.0)
[2017-10-13 11:49] VITALS: BP 131/83
[2017-10-13 12:17] LABS: ABSOLUTE NEUTROPHILS 0.1 thou/uL (1.4-8.2)
[2017-10-13 12:18] LABS: ANISOCYTOSIS 1+; POLYCHROMASIA OCCASIONAL
[2017-10-13 16:54] VITALS: BP 123/75
[2017-10-13 19:21] VITALS: BP 119/71
[2017-10-14 03:20] VITALS: BP 143/87
[2017-10-14 04:24] LABS: HEMATOCRIT 34.4 % (37.0-47.0); HEMOGLOBIN 11.5 gm/dL (12.0-15.0); MCH 27.2 pg (26.0-34.0); MCHC 33.3 g/dL (28.0-37.0); MCV 81.7 fL (80.0-100.0); RBC 4.21 mil/uL (4.20-5.00); RDW 17.8 % (10.5-14.5)
[2017-10-14 04:48] LABS: WBC 0.7 thou/uL (4.0-11.0)
[2017-10-14 05:43] LABS: ALBUMIN 2.9 g/dL (3.4-5.0); CALCIUM 9.7 mg/dL (8.5-10.1); CREATININE 1.1 mg/dL (0.6-1.0); POTASSIUM 3.9 mmol/L (3.5-5.1); TOTAL BILIRUBIN 0.8 mg/dL (<0.1-1.0); TOTAL PROTEIN 6.7 g/dL (6.4-8.2)
[2017-10-14 07:13] VITALS: BP 135/72
[2017-10-14 11:45] VITALS: BP 121/71
[2017-10-14 15:50] VITALS: BP 110/61
[2017-10-14 19:21] VITALS: BP 112/68
[2017-10-15 03:40] VITALS: BP 156/96
[2017-10-15 06:37] LABS: HEMOGLOBIN 10.9 gm/dL (12.0-15.0)
[2017-10-15 06:39] LABS: HEMATOCRIT 33.2 % (37.0-47.0); MCH 27.1 pg (26.0-34.0); MCHC 32.9 g/dL (28.0-37.0); MCV 82.2 fL (80.0-100.0); RBC 4.04 mil/uL (4.20-5.00); RDW 18.3 % (10.5-14.5)
[2017-10-15 06:42] LABS: WBC 1.2 thou/uL (4.0-11.0)
[2017-10-15 06:45] LABS: CREATININE 1.1 mg/dL (0.6-1.0); POTASSIUM 4.1 mmol/L (3.5-5.1)
[2017-10-15 07:38] VITALS: BP 183/98
[2017-10-15 11:03] VITALS: BP 126/68
[2017-10-15 16:59] VITALS: BP 134/77
[2017-10-15 19:42] VITALS: BP 116/70
[2017-10-16 04:24] VITALS: BP 157/98
[2017-10-16 05:54] LABS: HEMATOCRIT 33.7 % (37.0-47.0); HEMOGLOBIN 11.1 gm/dL (12.0-15.0); MCH 27.1 pg (26.0-34.0); MCHC 32.9 g/dL (28.0-37.0); MCV 82.3 fL (80.0-100.0); RBC 4.09 mil/uL (4.20-5.00); RDW 17.8 % (10.5-14.5)
[2017-10-16 07:41] VITALS: BP 152/92
[2017-10-16 12:22] VITALS: BP 154/98
[2017-10-16 15:20] VITALS: BP 134/78
[2017-10-16 20:02] VITALS: BP 151/92
[2017-10-17 04:11] VITALS: BP 147/90
[2017-10-17 04:42] LABS: HEMATOCRIT 33.6 % (37.0-47.0); MCHC 32.6 g/dL (28.0-37.0); MCV 82.8 fL (80.0-100.0); PLATELET COUNT 119 thou/uL (150-400); RBC 4.06 mil/uL (4.20-5.00); RDW 17.8 % (10.5-14.5); WBC 6.8 thou/uL (4.0-11.0)
[2017-10-17 07:25] VITALS: BP 141/87
[2017-10-17 08:20] LABS: ABSOLUTE NEUTROPHILS 5.8 thou/uL (1.4-8.2); METAMYELOCYTES 3 %; NUCLEATED RBCS 3 /100WBC
[2017-10-17 08:21] LABS: ANISOCYTOSIS 2+; TOXIC GRANULATION 3+
[2017-10-17 08:22] LABS: BURR CELLS OCCASIONAL; MACROCYTES 1+; MICROCYTES 1+; OVALOCYTES FEW; POIKILOCYTOSIS 1+
[2017-10-17] MEDS ORDERED: LEVAQUIN 250 M250 MG PER TUBE (10:12)
[2017-10-17] MEDS ORDERED: GRANIX300 MCG/0. SUBQ (10:14)
[2017-10-17 11:21] VITALS: BP 133/84
== END 2017-10-17 15:41 | DRG 177 ==
LOC: ER 11:27 → EROBS 13:09 → 3W 13:09
PROVIDERS: Hospitalist; Internal Medicine Hematology & Oncology; Internal Medicine Pulmonary Disease; Nurse Practitioner; Physician Assistant
DX: J15.6 Pneumonia due to other Gram-negative bacteria (principal); J96.21 Acute and chronic respiratory failure with hypoxia; Z68.42 Body mass index [BMI] 45.0-49.9, adult; J44.1 Chronic obstructive pulmonary disease with (acute) exacerbation; D61.818 Other pancytopenia; K52.1 Toxic gastroenteritis and colitis; J45.901 Unspecified asthma with (acute) exacerbation; I27.20 Pulmonary hypertension, unspecified; M32.9 Systemic lupus erythematosus, unspecified; M79.7 Fibromyalgia; F32.9 Major depressive disorder, single episode, unspecified; F41.0 Panic disorder [episodic paroxysmal anxiety]; K21.9 Gastro-esophageal reflux disease without esophagitis; D86.0 Sarcoidosis of lung; D46.9 Myelodysplastic syndrome, unspecified; G89.29 Other chronic pain; R16.1 Splenomegaly, not elsewhere classified; G47.33 Obstructive sleep apnea (adult) (pediatric); M54.9 Dorsalgia, unspecified; E66.01 Morbid (severe) obesity due to excess calories; E87.6 Hypokalemia; E55.9 Vitamin D deficiency, unspecified; T36.95XA Adverse effect of unspecified systemic antibiotic, initial encounter; E83.42 Hypomagnesemia; Z99.81 Dependence on supplemental oxygen; Z98.1 Arthrodesis status; Z85.3 Personal history of malignant neoplasm of breast; Y92.89 Other specified places as the place of occurrence of the external cause; Z85.42 Personal history of malignant neoplasm of other parts of uterus; Z85.72 Personal history of non-Hodgkin lymphomas; Z79.899 Other long term (current) drug therapy; Z87.81 Personal history of (healed) traumatic fracture; Z92.21 Personal history of antineoplastic chemotherapy; Z90.710 Acquired absence of both cervix and uterus; Z90.722 Acquired absence of ovaries, bilateral; Z88.8 Allergy status to other drugs, medicaments and biological substances
CPT/HCPCS: 10879

== ENCOUNTER 2017-11-26 19:29 | Inpatient (IN) | payer OTHER ==
[~2017-11-26] VITALS: Ht 162.6 cm; Wt 127.0 kg
--- NOTE | ~2017-11-26 | HC ---
[facility] [place] [address] CONSULTATION Name: FRANCOIS LUGO Room #: 354-P ADM IN M.R.#: [id number] Admission: 11/26/17 Attend Phys: Kevin Jackman MD Discharge: Date of : 53 Report #: [id number] THIS REPORT FOR: //name// CC: Kevin Carmona Box DATE OF SERVICE: 11/27/2017 TYPE OF REPORT: Infectious diseases consultation. REASON FOR CONSULTATION: Pneumonia in the setting of myelodysplastic syndrome. HISTORY OF PRESENT ILLNESS: The patient was a 61-year old with underlying myelodysplastic syndrome, COPD and chronic bronchitis. She has been hospitalized multiple times in the last year. Most recently hospitalized in October, was dismissed on oral antibiotic therapy and Neupogen. Subsequent to this, she was rehospitalized in [facility] where she was diagnosed with pneumonia and C. difficile colitis. Dismissed on Augmentin and oral vancomycin. She completed this course of treatment this past week. She presents now with acute onset of rigors, fever and shortness of breath. Temperature went over 101.9 degrees. She was seen at [facility] and transferred to [facility] for further care. Her chills have resolved. Fever has abated. Has intermittent purulent sputum production. No pleuritic chest pain. No hemoptysis. She typically is on oxygen at 3.5 liters. She was up to 8 liters for a short period of time to maintain her oxygen saturation. She is now on 4 liters of oxygen and resting comfortably. No further episodes of diarrhea. No nausea, vomiting or abdominal pain. Denies any dysuria or frequency. She is morbidly obese but has had no change in this. She has had several falls over the last several weeks. No specific injury. No rashes or decubiti. Denies any headaches or change in consciousness. REVIEW OF SYSTEMS: Ten-point review of systems negative other than what is described above. ALLERGIES: MIDAZOLAM. MEDICATIONS: As noted on her MAY, now on Zosyn. She was on 20 mg of prednisone b.i.d. along with loperamide, vitamin D, lactobacillus, filgrastim, MiraLax and albuterol. PAST MEDICAL HISTORY: Breast cancer, right lumpectomy, uterine cancer, non-Hodgkin's lymphoma on Rituxan every other month, sarcoidosis, pulmonary hypertension, asthma, obstructive sleep apnea, lupus, fibromyalgia, Raynaud's, gastroesophageal reflux, COPD, anxiety and depression, recurrent bronchitis and pneumonia, Jael esophagitis and myelodysplastic syndrome. [address] [address] CONSULTATION Name: FRANCOIS LUGO Room #: 354-P [facility] IN M.R.#: [id number] Admission: 11/26/17 Attend Phys: Kevin Jackman MD Discharge: Date of : 53 Report #: [id number] FAMILY HISTORY: Noncontributory. SOCIAL HISTORY: Nonsmoker. No significant alcohol intake. PHYSICAL EXAMINATION: VITAL SIGNS: Afebrile and hemodynamically stable. GENERAL: She is alert and cooperative, a bit anxious. HEENT: Atraumatic. Eyes without conjunctivitis or scleral icterus. Mouth without thrush or oral lesions. NECK: Supple. No thyromegaly, mass or JVD. LUNGS: Few crackles in the bases posteriorly. No consolidation. HEART: Regular, without murmur, gallop or rub. ABDOMEN: Obese, soft and nontender. No hepatosplenomegaly or mass appreciated. SKIN: Without rash or ulceration. LYMPHATIC: Without palpable nodes. EXTREMITIES: With 1+ lower extremity edema on the left and trace on the right. NEUROLOGICAL: Normal including cranial nerves. Strength and the lower extremities sensation intact. Mood, mild anxiety. LABORATORY DATA: Sodium 146, potassium 2.9, bicarbonate 37 and creatinine 1.1. Blood and sputum cultures are pending. Hemoglobin 13.3; platelet count 176,000 and white count 2.9 with an ANC of 1.8. IMPRESSION: 1. Chronic obstructive pulmonary disease exacerbation and pneumonia. I am awaiting culture results. The patient did have high fever and chills. We would also be concerned about urinary tract infection. We will need to obtain urinalysis and urine culture. 2. Leukopenia has stabilized now off Neupogen, although I suspect with her myelodysplastic syndrome and this will be required in the future. 3. Systemic lupus erythematosus and sarcoidosis, on corticosteroids. 4. Mantle cell lymphoma, in remission. 5. Anxiety remains an issue. 6. Clostridium difficile colitis, recent, no evidence of active diarrhea at this time. RECOMMENDATIONS: We will continue with Zosyn, pending culture results. We will obtain laboratory studies from [facility]. Followup chest x-ray. Continue oxygen support. Serial CBCs. Check urinalysis and urine culture. Give vancomycin while on systemic antibiotics. <ELECTRONICALLY SIGNED> By: Paul Boyd MD 11/28/17 1756 1148 1358 Paul Boyd MD /nt
--- NOTE | ~2017-11-26 | HC ---
[facility] [place] [address] CONSULTATION Name: FRANCOIS LUGO Room #: 354-P ADM IN M.R.#: [id number] Admission: 11/26/17 Attend Phys: Kevin Jackman MD Discharge: Date of : 53 Report #: [id number] THIS REPORT FOR: //name// CC: Kevin Olson MD [facility] SIENA Boone MD REASON FOR CONSULTATION: History of lymphoma and MDS. HISTORY OF PRESENT ILLNESS: The patient is a pleasant 61-year-old female who I have known for a number of years, who was recently in the hospital for pneumonia and also more recently in October or September had a bone marrow, which showed changes consistent with a myelodysplastic syndrome and cytogenetics were 5q minus. At that time, she had about a 6-month history of cytopenias and had been on growth factor in the hospital and also down at [facility]. The patient reports she had been out of hospital for about the last week and a half without the growth factor. Recent white count down at [place] yesterday had been 2.9 with an ANC of 1.8. Hemoglobin is 13.3, platelets 176. The patient reports that she has had some progressive shortness of breath for the last several days. Her said that yesterday instead of her usual several liters of oxygen at 5 L, she was still was still way under 90%. She was on 10 L there and I believe is on 8 L now. She also reports feeling chilled and she feels like she is shivering. She also says that her phlegm is usually whitish or clear, was sort of greenish tinge yesterday. As usual has mild headaches from shivering and shaking. No throat pain. Does have some general muscle aches and pains related to her fibromyalgia. She does have the shortness of air. She says her skin rash, which is her sarcoid, has been about the same lately, had some diarrhea there, which is not exacerbated. She had C. diff down there. There is a little bit of dysuria, but had not found a urinary tract infection while she is down there. Weight has been stable. PAST MEDICAL HISTORY: Notable for the history of myelodysplasia with the 5q minus syndrome, also history of marginal zone lymphoma from 2009 in the past, treated with fludarabine, Cytoxan and rituximab, completed in 2009, recurred in 2013. At that time, treated with Rituxan and then again in 2014. At that time, got fludarabine, Cytoxan, and Rituxan again, then had been on rituximab as a form of maintenance, partly for lymphoma. Also has a history of sarcoid, mostly with skin involvement. Also has severe pulmonary hypertension, history of breast cancer in 1984, history of uterine cancer in the distant past, history of fibromyalgia, history of sleep apnea, history of Raynaud syndrome, history of fused vertebrae, history of depression and anxiety with panic attacks, history [facility] [address] [place] [address] CONSULTATION Name: FRANCOIS LUGO Room #: 354-P ADM IN M.R.#: [id number] Admission: 11/26/17 Attend Phys: Kevin Jackman MD Discharge: Date of : 53 Report #: [id number] of GERD, history of hiatal hernia, also history of splenomegaly, about 15 cm, in 08/2017. SOCIAL HISTORY: Supportive . Nonsmoker, nondrinker, no street drugs. She had worked in the past, but I do not believe for the last several years she has. MEDICATIONS: At this time in the hospital currently include cyclobenzaprine 10 at bedtime, guaifenesin 600 b.i.d., lactobacillus 1 cap daily, methylprednisolone 62.5 IV q. 8 hours, Zosyn 3.375 q. 8 hours, pregabalin 75 at bedtime, Xanax 1 mg q. 8 hours p.r.n., ipratropium and albuterol inhalers, 3 mL, respiratory q. 6 hour inhalation therapy, loperamide 2 mg q. 6 hours p.o. p.r.n., MiraLax 17 grams daily p.r.n., Tylenol p.r.n., albuterol 2.5 mg q. 4 hours inhalation p.r.n., Zofran p.r.n. PHYSICAL EXAMINATION: VITAL SIGNS: Height is 5 feet 4 inches, which is 162.6 cm, weight 280 pounds, which is 127.1 kg. Blood pressure is 93/50 in the right arm. O2 sat currently 95, respirations 21, pulse 96, temperature 97.9. Note that respiratory smith, she is currently on 5 L. MOOD: She is anxious and pleasant, conversant. NEUROLOGIC: Moving all extremities. Face is symmetrical. LUNGS: Have some decreased movement as usual, but more decreased than usual on the left and maybe some slight rhonchi in that side. No definite lymph nodes in the supraclavicular, cervical, axillary or inguinal region. ABDOMEN: Obese. No definite organomegaly. SKIN: Has a few spots consistent with her sarcoid involvement. EXTREMITIES: Without clubbing, cyanosis. There is, maybe, trace edema. LABORATORY DATA: Here had a BMP notable for potassium of 2.9, magnesium 1.5 at the outside yesterday, had a hemoglobin 13.3, white count 2.76, and platelets 176. ANC 1.8. I think her liver functions are normal. Alkaline phosphatase might have been slightly elevated, maybe 170 range. IMAGING DATA: Chest x-ray there showed a perihilar fullness consistent with either pneumonia or atelectasis. ASSESSMENT AND PLAN: 1. History of myelodysplasia 5q minus syndrome. The patient had not been able to keep appointment over at [facility] because of recent hospitalizations. We will arrange once again as an outpatient though I am not sure specific therapy is indicated. At this point if her counts drop, we had considered chemotherapy, though I think, it would be very dangerous for her, but we will defer to the specialists who deal with bone marrow disorders more than I do. 2. History of lymphoma, not currently an issue. [facility] [address] [place] [address] CONSULTATION Name: FRANCOIS LUGO Room #: 354-P ADM IN .R.#: [id number] Admission: 11/26/17 Attend Phys: Kevin Jackman MD Discharge: Date of : 53 Report #: [id number] 3. Exacerbation of chronic obstructive pulmonary disease, pneumonia, atelectasis. Agree with IV steroids, antibiotics, cultures, and aerosol treatments. 4. Respiratory failure, supplemental oxygen and will be careful, as she is a CO2 retainer. 5. Severe pulmonary hypertension. Defer to others. 6. Lupus. Defer to Dr. Munoz. 7. Fibromyalgia. Continues pain meds and exercises as able to. 8. Gastroesophageal reflux disease. Continue acid blockers. 9. History of breast cancer, not an issue. 10. History of uterine cancer, not an issue. 11. Chronic pain. Has a pain pump in place. <ELECTRONICALLY SIGNED> By: Farooq Frye MD 11/29/17 0849 Farooq Frye MD /nt
--- NOTE | ~2017-11-26 | EKG ---
[address] [address] ELECTROCARDIOGRAM REPORT Name: FRANCOIS LUGO BEKAH Room #: 354-P ADM IN M.R.#: [id number] Admission: 11/26/17 Attend Phys: Kevin Jackman MD Discharge: Date of : 53 Report #: [id number] THIS REPORT FOR: //name// [facility] Test Date: 2017-11-30 Test Time: 13:17:48 Pat Name: FRANCOIS LUGO Department: Room: 354 Gender: F [employer]ificial [employer] Worker: Selwyn HARRISON : 1955 Requested By: Paul Boyd Order Number: [id number] MD: Ernst Merino Measurements Intervals [place] Rate: 93 P: 37 HI: 127 QRS: 12 QRSD: 89 T: 20 QT: 349 QTc: 435 Interpretive Statements Sinus rhythm Supraventricular bigeminy Borderline T abnormalities, anterior leads Compared to ECG 10/12/2017 11:55:12 T-wave abnormality now present Sinus tachycardia no longer present Left-axis deviation no longer present ST (T wave) deviation no longer present Electronically Signed On 11-30-2017 17:03:37 CDT by Ernst Merino [email or web address] <ELECTRONICALLY SIGNED> By: Ernst Merino MD 11/30/17 1703 1317 1317 Ernst Merino MD /EPI
[~2017-11-26 19:29] MED LIST changes: +GRANIX300 MCG/0. SUBQ; +LEVAQUIN 250 M250 MG PER TUBE
[2017-11-26 21:19] VITALS: BP 106/63
[2017-11-27 00:18] VITALS: BP 105/82
[2017-11-27 03:49] LABS: CALCIUM 8.8 mg/dL (8.5-10.1); CREATININE 1.1 mg/dL (0.6-1.0); MAGNESIUM 1.5 mg/dL (1.8-2.4)
[2017-11-27 03:51] LABS: POTASSIUM 2.9 mmol/L (3.5-5.1)
[2017-11-27 05:36] VITALS: BP 93/50
[2017-11-27 07:50] VITALS: BP 128/59
[2017-11-27 11:34] VITALS: BP 123/57
[2017-11-27 15:29] VITALS: BP 122/44
[2017-11-27 20:20] VITALS: BP 115/67
[2017-11-28 03:26] VITALS: BP 115/63
[2017-11-28 04:38] LABS: POTASSIUM 3.2 mmol/L (3.5-5.1)
[2017-11-28 04:42] LABS: HEMATOCRIT 31.5 % (37.0-47.0); HEMOGLOBIN 10.7 gm/dL (12.0-15.0); MCH 27.4 pg (26.0-34.0); MCV 80.5 fL (80.0-100.0); PLATELET COUNT 139 thou/uL (150-400); RBC 3.91 mil/uL (4.20-5.00); RDW 17.5 % (10.5-14.5); WBC 2.7 thou/uL (4.0-11.0)
[2017-11-28 05:22] LABS: ABSOLUTE NEUTROPHILS 2.3 thou/uL (1.4-8.2); ANISOCYTOSIS 1+
[2017-11-28 07:39] VITALS: BP 107/58
[2017-11-28 11:28] VITALS: BP 104/54
[2017-11-28 15:21] VITALS: BP 128/73
[2017-11-28 19:50] VITALS: BP 146/66
[2017-11-29 03:55] VITALS: BP 134/77
[2017-11-29 05:33] LABS: HEMATOCRIT 34.9 % (37.0-47.0); HEMOGLOBIN 11.3 gm/dL (12.0-15.0); MCH 26.4 pg (26.0-34.0); MCHC 32.3 g/dL (28.0-37.0); MCV 81.6 fL (80.0-100.0); PLATELET COUNT 191 thou/uL (150-400); RBC 4.28 mil/uL (4.20-5.00); WBC 7.5 thou/uL (4.0-11.0)
[2017-11-29 05:44] LABS: CALCIUM 9.3 mg/dL (8.5-10.1); CREATININE 0.9 mg/dL (0.6-1.0); POTASSIUM 4.7 mmol/L (3.5-5.1)
[2017-11-29 07:19] VITALS: BP 140/69
[2017-11-29 08:27] LABS: ANISOCYTOSIS 1+; MICROCYTES 1+; POLYCHROMASIA OCCASIONAL
[2017-11-29 08:28] LABS: ABSOLUTE NEUTROPHILS 5.9 thou/uL (1.4-8.2); METAMYELOCYTES 2 %
[2017-11-29 12:25] VITALS: BP 152/68
[2017-11-29 15:20] VITALS: BP 133/67
[2017-11-29 19:40] VITALS: BP 143/84
[2017-11-30 04:45] VITALS: BP 153/81
[2017-11-30 07:20] VITALS: BP 143/75
[2017-11-30 10:55] VITALS: BP 144/84
[2017-11-30] MEDS ORDERED: LEVAQUIN 500 M500 M3 PO (12:50)
[2017-11-30] MEDS ORDERED: FIRVANQ50 MG/1 ML PO (12:52)
[2017-11-30 13:00] VITALS: BP 144/84
[2017-11-30] MEDS ORDERED: NORCO 5-325 TA1 EACH PO (14:43)
[2017-11-30 23:13] LABS: ADENOVIRUS Negative (Negative); INFLUENZA A Negative (Negative); INFLUENZA B Negative (Negative); METAPNEUMOVIRUS Negative (Negative); PARAINFLUENZA 1 Negative (Negative); PARAINFLUENZA 2 Negative (Negative); PARAINFLUENZA 3 Negative (Negative); RHINOVIRUS Negative (Negative); RSV A Negative (Negative); RSV B Negative (Negative)
== END 2017-11-30 19:30 | disposition home health service (06) | DRG 871 ==
LOC: 3W 19:29 → ENTRNSPT 11-30 19:07 → 3W 11-30 19:30
PROVIDERS: Hospitalist; Nurse Practitioner Acute Care; Specialist
DX: A41.9 Sepsis, unspecified organism (principal); J96.21 Acute and chronic respiratory failure with hypoxia; J18.9 Pneumonia, unspecified organism; D46.C Myelodysplastic syndrome with isolated del(5q) chromosomal abnormality; J44.1 Chronic obstructive pulmonary disease with (acute) exacerbation; J98.11 Atelectasis; C83.10 Mantle cell lymphoma, unspecified site; A04.72 Enterocolitis due to Clostridium difficile, not specified as recurrent; E87.0 Hyperosmolality and hypernatremia; D61.818 Other pancytopenia; C85.90 Non-Hodgkin lymphoma, unspecified, unspecified site; Z68.42 Body mass index [BMI] 45.0-49.9, adult; J44.0 Chronic obstructive pulmonary disease with (acute) lower respiratory infection; I27.20 Pulmonary hypertension, unspecified; I73.00 Raynaud's syndrome without gangrene; F32.9 Major depressive disorder, single episode, unspecified; K21.9 Gastro-esophageal reflux disease without esophagitis; M32.9 Systemic lupus erythematosus, unspecified; G47.33 Obstructive sleep apnea (adult) (pediatric); D86.9 Sarcoidosis, unspecified; F41.9 Anxiety disorder, unspecified; E66.01 Morbid (severe) obesity due to excess calories; G89.4 Chronic pain syndrome; G62.9 Polyneuropathy, unspecified; J45.909 Unspecified asthma, uncomplicated; Z77.22 Contact with and (suspected) exposure to environmental tobacco smoke (acute) (chronic); E87.6 Hypokalemia; Z90.721 Acquired absence of ovaries, unilateral; Z85.3 Personal history of malignant neoplasm of breast; Z85.42 Personal history of malignant neoplasm of other parts of uterus; Z88.8 Allergy status to other drugs, medicaments and biological substances; Z90.710 Acquired absence of both cervix and uterus; Z79.899 Other long term (current) drug therapy
CPT/HCPCS: 10879

== ENCOUNTER 2018-03-17 16:02 | Inpatient (IN) | payer OTHER ==
[~2018-03-17] VITALS: Ht 162.6 cm; Wt 109.5 kg
--- NOTE | ~2018-03-17 | HPC ---
[facility] [place] [address] PAIN MANAGEMENT CONSULTATION Name: FRANCOIS LUGO Room #: 211-P ADM IN M.R.#: [id number] Admission: 03/17/18 Attend Phys: Ivan Jordan MD Discharge: Date of : 53 Report #: [id number] THIS REPORT FOR: //name// CC: Cullen Jordan DATE OF SERVICE: 03/20/2018 DIAGNOSIS: Chronic intractable low back pain with intrathecal pump management as part of a complex polypharmacy regimen. PROCEDURE: Refill and reprogram intrathecal infusion pump. The patient is a patient of Dr. Paul Cisneros. She is followed at the [facility] where her intrathecal pump is refilled by the team there. She has a complex infusion that includes hydromorphone, clonidine, bupivacaine and ketamine. She was hospitalized at [facility] with acute on chronic respiratory failure and has been in the ICU and now transferred to step down critical care. Her pump alarm has sounded and she has less than 2 mL of medication in her pump. It must be refilled to prevent withdrawal. Through the workup many behind the scenes, we have made the complex transfer of her medication to [facility] and today's medicine is no easy task. The obvious right thing to do is for us to stop in to fill the pump and reprogram it to help Dr. Cisneros and his team. Unfortunately, hours were spent arranging for the transfer of medication and the payment for this medication. The medication cost as I can see from the receipt is $236. I am sure many multiples of that were spent in individuals time communicating to make sure the medication was transferred to us. Currently, the patient is recuperating in bed. Her pain control is adequate. In addition to her intrathecal medication, she has a PTM device, which will allow for her to provide an additional bolus. I note that Amelia has changed the concentration of one medication ketamine which will require a bridge bolus. I explained this to the patient and her . It will delay the use of her PTM device until the bridge bolus was complete, approximately 33 hours. PROCEDURE: Refill reprogramming of intrathecal infusion pump. After informed consent, the patient was placed in the supine position. The pump is in the right upper abdomen. Skin was prepped with ChloraPrep and 22-gauge non-coring needle advanced into the intrathecal pump on the first attempt. Expected volume of aspiration was 1.5 mL. I removed 4 mL of clear fluid from the pump and it was discarded per protocol. The pump was then refilled with 39.5 mL of bupivacaine 2600 mcg, hydromorphone 11,440 mcg, clonidine 624 mcg, [address] [address] PAIN MANAGEMENT CONSULTATION Name: FRANCOIS LUGO Room #: 211-P [facility] IN M.R.#: [id number] Admission: 03/17/18 Attend Phys: Ivan Jordan MD Discharge: Date of : 53 Report #: [id number] ketamine 910 mcg/mL. The only medication changing ketamine from 788 to 910. A reprogramming session was then performed. All medications 1 through 3 were kept stable. The ketamine dose increasing by roughly 25%. A bridge bolus was programmed to outline the change in medication and the bridge bolus is 33 minutes and 35 minutes. The PTM device for patient assist device was also reprogrammed to provide the same number of boluses Dr. Cisneros had recommended for the patient. Daily dose will be at maximum, bupivacaine 57721 mcg, hydromorphone 7000 mcg, clonidine 480 mcg, ketamine 475 mcg. Her refill interval is now 62 days with maximum PTM for 05/21/2018. Usage described. She will probably be able to go at least a week or two longer than that. Copies of the information were provided for the hospital record for the patient for our pain clinic and a copy was faxed to the pain clinic at [facility] for Dr. Cisneros's record. By: 1132 [id number] Farooq Crabtree MD /nt
[~2018-03-17 16:02] MED LIST changes: +FIRVANQ50 MG/1 ML PO; +LEVAQUIN 500 M500 M3 PO
[2018-03-17] MEDS ORDERED: XANAX1 MG PO (17:00)
[2018-03-17] MEDS ORDERED: CELEXA20 MG PO (17:01)
[2018-03-17] MEDS ORDERED: MS CONTIN 30 MG30 MG PO (17:02)
[2018-03-17] MEDS ORDERED: OMEPRAZOLE40 MG PO (17:02)
[2018-03-17] MEDS ORDERED: OXYCONTIN10 M1 PO (17:05)
[2018-03-17] MEDS ORDERED: POTASSIUM20 PO (17:06)
[2018-03-17] MEDS ORDERED: SYMBICORT160 MCG/4. INH (17:08)
[2018-03-17] MEDS ORDERED: PROAIR HFA8.5 GM (17:08)
[2018-03-17 18:07] VITALS: BP 101/64
[2018-03-17] MEDS ORDERED: TYLENOL325 MG PO (18:44)
[2018-03-17] MEDS ORDERED: ALBUTEROL0.63 MG/3 INH (18:45)
[2018-03-17] MEDS ORDERED: OXYCODONE HCL10 MG PO (18:49)
[2018-03-17 19:38] VITALS: BP 99/60
--- NOTE | 2018-03-17 20:46 | NUR ---
PT WAS ADMITTED FROM [facility] WITH SOB FOR THE LAST 2 DAYS. SHE IS ON O2 AT HOME AND IS ALSO APPARENTLY ON HOSPICE AT HOME WELL. PT'S BROUGHT HER IN. THE PATIENT DENIES SOB, HOWEVER SHE IS LETHARGIC AND VERY TIRED. LUNGS ARE COURSE. THE PATIENT ALSO STATES THAT SHE IS IN CHRONIC PAIN THAT SEEMS TO BE CENTERED AROUND HER LOWER BACK. ASSESSMENT CHARTED. IS AT THE BEDSIDE. WILL CONTINUE TO MONITOR.
[2018-03-18 00:02] VITALS: BP 99/67
[2018-03-18 05:10] LABS: HEMATOCRIT 32.8 % (37.0-47.0); HEMOGLOBIN 10.3 gm/dL (12.0-15.0); MCH 23.7 pg (26.0-34.0); MCHC 31.4 g/dL (28.0-37.0); MCV 75.4 fL (80.0-100.0); RBC 4.35 mil/uL (4.20-5.00); RDW 19.2 % (10.5-14.5); WBC 2.3 thou/uL (4.0-11.0)
[2018-03-18 05:23] LABS: CALCIUM 8.8 mg/dL (8.5-10.1); CREATININE 0.6 mg/dL (0.6-1.0); MAGNESIUM 1.8 mg/dL (1.8-2.4); POTASSIUM 3.5 mmol/L (3.5-5.1)
[2018-03-18 05:25] VITALS: BP 90/53
[2018-03-18 08:04] VITALS: BP 94/54
[2018-03-18 11:54] VITALS: BP 119/64
[2018-03-18 14:13] LABS: URINE COLOR YELLOW
[2018-03-18 14:14] LABS: URINE BILIRUBIN NEGATIVE (Negative); URINE BLOOD NEGATIVE (Negative); URINE CLARITY CLOUDY; URINE GLUCOSE-RANDOM* NEGATIVE (Negative); URINE KETONES TRACE (Negative); URINE LEUKOCYTES-REFLEX NEGATIVE (Negative); URINE NITRITE-REFLEX POSITIVE (Negative); URINE PROTEIN (DIPSTICK) TRACE (Negative); URINE SPECIFIC GRAVITY 1.025 (1.005-1.035); URINE UROBILINOGEN 0.2 E.U./dl (0.2-1.0)
[2018-03-18 14:22] LABS: AMORPHOUS URATES Many /LPF (None Seen)
[2018-03-18 14:24] LABS: BACTERIA-REFLEX None Seen /HPF (None Seen); CASTS None Seen /LPF (None Seen); MUCUS None Seen strn/LPF (None Seen); SQUAMOUS 0-3 Few /LPF (0-3); URINE RBC None Seen /HPF (0-2); URINE WBC-REFLEX 0-5 Rare /HPF (0-5)
--- NOTE | 2018-03-18 15:07 | NUR ---
PT HAS PAIN PUMP IN RIGHT ABDOMIN. PT DOESN'T KNOW IF IT IS FULL OR EMPTY. PT LEFT CONTROLLER FOR BOLUS AT HOME. BASAL RATE WILL RUN BUT FAMILY OR PT DOESN'T KNOW IF THE PUMP IS EMPTY.
[2018-03-18 16:00] VITALS: BP 116/66
--- NOTE | 2018-03-18 16:35 | NUR ---
INFORMED DR. WAY THAT PT'S HEART RATE WAS 120'S SUSTAINED. HE ORDERED FENT. FOR BREAKTHROUGH PAIN. WILL CONT TO MONITOR HEART RATE.
[2018-03-18 19:34] VITALS: BP 119/46
--- NOTE | 2018-03-18 20:41 | NUR ---
ASSUMED CARE OF PT AT 0700. PT ALERT, BUT IN PAIN. PT ANXIOUS AND SAD. PAIN AND ANXIETY BETTER CONTROLLED IN AFTERNOON, AND PT STATED PAIN WAS LOW AT SHIFT CHANGE. ANXIETY CONTROLLED WITH MEDICATION. PT VITALS WITHIN NORMAL LIMITS EXCEPT HEART RATE TACHY IN 120'S. DR. WAY NOTIFIED (SEE PREVIOUS NOTE). SAMPLES SENT TO LAB FOR MRSA, H1N1, SPUTUM AND URINE. FAMILY EDUCATION GIVEN ON HOW TO HELP PT WITH ANXIETY. WILL CONT WITH POC.
[2018-03-19 04:18] LABS: HEMATOCRIT 30.4 % (37.0-47.0); HEMOGLOBIN 9.7 gm/dL (12.0-15.0); MCH 23.9 pg (26.0-34.0); MCHC 31.8 g/dL (28.0-37.0); MCV 75.1 fL (80.0-100.0); RBC 4.05 mil/uL (4.20-5.00); RDW 19.9 % (10.5-14.5); WBC 2.2 thou/uL (4.0-11.0)
[2018-03-19 05:07] VITALS: BP 107/57
[2018-03-19 05:09] LABS: CALCIUM 8.7 mg/dL (8.5-10.1); CREATININE 0.8 mg/dL (0.6-1.0); MAGNESIUM 1.7 mg/dL (1.8-2.4)
[2018-03-19 07:44] VITALS: BP 125/69
[2018-03-19 08:09] VITALS: BP 128/63
--- NOTE | 2018-03-19 08:43 | NUR ---
ASSESSMENTS CHARTED. PT UP TO BSC, HAS SMALL SOFT BOWEL MOVEMENT. PT CONTINUES TO FIDGET WITH BILLS STAT LOCKS UNTIL THEY BREAK. WENT THROUGH 3 DURING SHIFT. MOVED CATHETER BAG TO RIGHT SIDE AND PLACED PILLOW OVER THE TOP OF THE CATHETER. DID NOT COMPLAIN OF PAIN THAT NEEDED PAIN MEDS DURING THE NIGHT. PLAN OF CARE TO RETURN HOME WITH ANTIBIOTICS
[2018-03-19 11:19] VITALS: BP 106/55
--- NOTE | 2018-03-19 11:54 | HC ---
[facility] [place] [address] CONSULTATION Name: FRANCOIS LUGO Room #: 211-P ADM IN M.R.#: [id number] Admission: 03/17/18 Attend Phys: Ivna Jordan MD Discharge: Date of : 53 Report #: [id number] THIS REPORT FOR: //name// CC: Cullen Jordan DATE OF SERVICE: 03/18/2018 INFECTIOUS DISEASES CONSULTATION REASON FOR CONSULTATION: Pneumonia. HISTORY OF PRESENT ILLNESS: The patient is a 62-year-old, with underlying myelodysplastic syndrome, COPD, chronic bronchitis, who has had ongoing hospitalizations for exacerbation of her COPD and pneumonitis. She has had previous diagnosis of C. difficile colitis as well. Her last hospitalization at [facility] was on 11/26/2017 where she was diagnosed with pneumonia. Sputum culture from that time showed a pansensitive Pseudomonas aeruginosa. Since then, she has been in and out of the hospital several times with exacerbation of her COPD and possible pneumonia. I do not have the previous records to review. In discussion with the patient and her at the bedside, it appears that she has been in and out of the hospital 3 times over the last month. She now reports increased cough with green sputum production, low grade fever, myalgias and arthralgias. There has been no hemoptysis. She has had mild substernal chest discomfort, but no pleuritic chest pain. She had been on antibiotics almost continuously to the last month or so, noting that after 3-4 days, coming off her antibiotics, she flares up. She did not know her last antibiotic that was given to her. She has had no travel. Other persons in her household have been without upper respiratory tract infection symptoms. She remains on hospice. She had myelodysplastic syndrome, which is major limiting factor here. She denies any ongoing nausea or vomiting. She has had some loose stools. No dysuria or frequency. Denies any rash or arthritis or lymphadenopathy. She does have underlying anxiety, which has been reasonably stable. REVIEW OF SYSTEMS: Ten-point review of systems was otherwise negative other than what is described above. ALLERGIES: MIDAZOLAM. MEDICATIONS: As noted on her MAY, now including vancomycin and cefepime. She received 1 dose of azithromycin in the Emergency Room. She is also on prednisone 5 mg a day. [address] [address] CONSULTATION Name: FRANCOIS LUGO Room #: 211-P [facility] IN M.R.#: [id number] Admission: 03/17/18 Attend Phys: Ivan Jordan MD Discharge: Date of : 53 Report #: [id number] PAST MEDICAL HISTORY: Breast cancer, right lumpectomy, uterine cancer, non-Hodgkin's lymphoma, continuing on Rituxan every other month, sarcoidosis, pulmonary hypertension, asthma, obstructive sleep apnea, COPD, lupus, fibromyalgia, Raynaud's, gastroesophageal reflux, anxiety, depression, recurrent bronchitis and pneumonia, esophageal esophagitis and myelodysplastic syndrome, sarcoidosis. FAMILY HISTORY: Noncontributory. SOCIAL HISTORY: Nonsmoker, no significant alcohol intake. PHYSICAL EXAMINATION: VITAL SIGNS: Afebrile and hemodynamically stable. Heart rate was 98, respiratory rate 16, blood pressure 94/54 on 4 liters of oxygen per nasal cannula. GENERAL: She was alert and cooperative. She was anxious. She had a loose cough. She appeared her stated age and was resting comfortably lying in bed. HEENT: Head atraumatic. Eyes without conjunctivitis or scleral icterus. Mouth without thrush or oral lesions. NECK: Supple with no thyromegaly, mass or JVD. LUNGS: Clear anteriorly. She had crackles in the left base posteriorly with no consolidation. HEART: Regular, without murmur, gallop or rub. ABDOMEN: Obese, soft, nontender with no hepatosplenomegaly or mass appreciated. SKIN: Without rash or ulceration. LYMPHATIC: No palpable adenopathy. EXTREMITIES: With 1+ lower extremity edema without significant cyanosis or clubbing. NEUROLOGIC: Cranial nerves are intact. Her strength in the upper and lower extremities was normal with sensation to touch intact. PSYCHIATRIC: Mood was mildly anxious. LABORATORY STUDIES: Chest x-ray, patchy bilateral infiltrates, greatest in the left lower lobe. Influenza antigen negative. Sodium 145, potassium 3.5, bicarbonate 36, creatinine 0.6. Hemoglobin 10.3, platelet count 109,000, white count 2.3. Procalcitonin is 1.7. BNP 1165. Troponin was negative. IMPRESSION: 1. A 62-year-old, with underlying myelodysplastic syndrome, sarcoidosis, chronic bronchitis, chronic obstructive pulmonary disease, comes in with exacerbation of such with patchy bilateral infiltrates, most predominant in the left lower lobe. It is still unclear yet if we are dealing with viral process versus bacterial pneumonia. It does not seem that her sputum was fairly purulent and productive, which would lean toward bacterial etiology. 2. Pancytopenia, under reasonable control at this point. 3. Anxiety, stable. [facility] [address] [place] [address] CONSULTATION Name: FRANCOIS LUGO Room #: 211-P ADM IN M.R.#: [id number] Admission: 03/17/18 Attend Phys: Ivan Jordan MD Discharge: Date of : 53 Report #: [id number] 4. Hypertension, controlled. 5. Obesity, no change. RECOMMENDATION: We will continue antibiotic coverage with vancomycin, azithromycin, cefepime and Tamiflu. We will check viral respiratory panel, sputum culture, urine antigens. Follow serial CBCs and chest x-ray. Pulmonary medicine will continue with breathing treatments. <ELECTRONICALLY SIGNED> By: Paul Boyd MD 03/19/18 1154 1310 50 Paul Boyd MD /nt
[2018-03-19 14:44] VITALS: BP 144/85
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
--- NOTE | 2018-03-19 17:20 | NUR ---
ASSUMED CARE OF PT AT 1200. ECHO ORDERED. DR WAY CHANGED PAIN MEDS. PAIN CLINIC CONSULTED TO REFILL PAIN PUMP, WAITING FOR MEDS FROM [facility]. UP TO COMMODE FOR BM. POOR APPETITE. [facility] CONSULT.
[2018-03-19 19:46] VITALS: BP 112/58
--- NOTE | 2018-03-20 02:47 | NUR ---
ASSESSMENT DOCUMENTED,PT BEEN SLEEPING IN NO ACUTE DISTRESS.A/OX4.PT VERY SLEEPY MOST OF THE NOC BUT EASY TO AROUSE.TURNED AND REPOSITIONED IN BED.PAIN MEDS ADMINISTERED PER ORDERS/SCHEDULED,PAIN SEEMS BETTER PER PT.NEGAR DD.O2 AT 4LITERS PNC,SATS ADEQUATE.PT DENIES ANY OTHER NEEDS AT THIS TIME.WILL CONT TO MONITOR PER POC.
[2018-03-20 03:56] VITALS: BP 120/71
[2018-03-20 04:23] LABS: HEMOGLOBIN 9.1 gm/dL (12.0-15.0); MCH 23.6 pg (26.0-34.0); MCHC 31.4 g/dL (28.0-37.0); RBC 3.86 mil/uL (4.20-5.00); RDW 19.4 % (10.5-14.5); WBC 2.1 thou/uL (4.0-11.0)
[2018-03-20 04:29] LABS: CALCIUM 8.8 mg/dL (8.5-10.1); CREATININE 0.6 mg/dL (0.6-1.0); MAGNESIUM 1.9 mg/dL (1.8-2.4); POTASSIUM 3.6 mmol/L (3.5-5.1)
--- NOTE | 2018-03-20 08:04 | 2DMMODE ---
[facility] [address] [place] [address] 2 D/M-MODE ECHOCARDIOGRAM Name: FRANCOIS LUGO Room #: 211-P ADM IN M.R.#: [id number] Admission: 03/17/18 Attend Phys: Ivan Jordan MD Discharge: Date of : 53 Date of Service: 03/20/18 0803 Report #: [id number] THIS REPORT FOR: //name// APPROVED REPORT Study performed: 03/19/2018 13:23:59 EXAM: Comprehensive 2D, Doppler, and color-flow Echocardiogram with contrast Patient Location: Bedside Room #: 211 Status: routine BSA: 2.14 HR: 105 bpm BP: 144/85 mmHg Rhythm: Sinus Arrythmia Other Information Study Quality: Fair Indications Dyspnea Tachycardia pt. states Hx. pulmonary HTN Echo Enhancing Agent Indication: Endocardial border delineation Agent(s) / Amount(s) Used: Optison 5 cc 2D Dimensions RVDd: 30.96 mm LVOT Diam: 22.76 (18-24mm) Ascending Ao: 34.82 (22-36mm) Aortic Root: 37.01 mm IVC: 17.00 mm Volumes Left Atrial Volume (Systole) Single Plane 4CH: 59.05 mL Single Plane 2CH: 40.20 mL LA ESV Index: 25.00 mL/m2 Aortic Valve AoV Peak Regan.: 2.40 m/s AO Peak Gr.: 20.47 mmHg LVOT Max P.25 mmHg AO Mean Gr.: 12.76 mmHg AO V2 Mean: 1.70 m/s LVOT Max V: 1.35 m/s AO V2 VTI: 44.09 cm [facility] [address] [address] 2 D/M-MODE ECHOCARDIOGRAM Name: FRANCOIS LUGO Room #: 211-P ADM IN [facility].#: [id number] Admission: 03/17/18 Attend Phys: Ivan Jordan MD Discharge: Date of : 53 Date of Service: 03/20/18 0803 Report #: [id number] [id number] Vmax: 2.28 cm2 Mitral Valve E/A Ratio: 0.9 MV Decel. Time: 218.20 ms MV E Max Regan.: 1.00 m/s MV A Regan.: 1.14 m/s MV PHT: 63.28 ms IVRT: 103.81 ms Pulmonary Valve PV Peak Regan.: 1.08 m/s PV Peak Gr.: 4.66 mmHg Tricuspid Valve TR Peak Regan.: 1.82 m/s RAP Estimate: 5.00 mmHg TR Peak Gr.: 13.28 mmHg Left Ventricle The left ventricle is normal size. The left ventricular systolic function is normal. The left ventricular ejection fraction is within the normal range. LVEF is 55-60%. Mild diastolic dysfunction is present (impaired relaxation pattern). Right Ventricle The right ventricle is normal size. The right ventricular systolic function is normal. Atria The left atrium size is normal. The right atrium size is normal. Aortic Valve The aortic valve is normal in structure. Aortic valve appears trileaflet. No aortic regurgitation is present. There is no aortic valvular stenosis. Mean aortic valve gradient is 12.76 mmHg. Max aortic valve gradient is 23 mmHg. Mitral Valve The mitral valve is normal in structure. There is no mitral valve regurgitation noted. No evidence of mitral valve stenosis. Tricuspid Valve The tricuspid valve is normal in structure. Trace tricuspid regurgitation. Unable to assess PA pressure. Pulmonic Valve [facility] [address] [place] [address] 2 D/M-MODE ECHOCARDIOGRAM Name: FRANCOIS LUGO Room #: 211-P ADM IN M.R.#: [id number] Admission: 03/17/18 Attend Phys: Ivan Jordan MD Discharge: Date of : 53 Date of Service: 03/20/18 0803 Report #: [id number] Pulmonic valve is not well visualized. There is no pulmonic valvular regurgitation. Great Vessels Aortic root is borderline dilated. IVC is normal in size and collapses >50% with inspiration. Pericardium There is no pericardial effusion. <Conclusion> The left ventricle is normal size. LVEF is 55-60%. The aortic valve is normal in structure. Aortic valve appears trileaflet. There is no aortic valvular stenosis. Mean aortic valve gradient is 12.76 mmHg. Max aortic valve gradient is 23 mmHg. The mitral valve is normal in structure. The tricuspid valve is normal in structure. Trace tricuspid regurgitation. Unable to assess PA pressure. Pulmonic valve is not well visualized. There is no pericardial effusion. <ELECTRONICALLY SIGNED> By: Mukesh Talbot MD 03/20/18802 2 2 Mukesh Talbot MD /INF
--- NOTE | 2018-03-20 09:41 | NUR ---
Assess due to class III extreme obesity, BMI 42.3. Pt admitted with pneumonia and usually hospice care. Regular diet, tolerating. Low nutrition risk
--- NOTE | 2018-03-20 10:33 | NUR ---
FAXED CLINICAL UPDATE TO [facility]. SPOKE WITH BROOKS IN ADM, AND SHE RECEIVED UPDATE. DCP TO FOLLOW.
[2018-03-20 10:56] VITALS: BP 105/91
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
--- NOTE | 2018-03-20 16:33 | NUR ---
FAXED REFERRAL FOR RESPIT STAY TO [facility] SPOKE WITH FRANK IN ADM. SHE WILL REVIEW. ANTICIPATE DC MONDAY. DCP TO FOLLOW.
--- NOTE | 2018-03-20 16:53 | NUR ---
PT CARE ASSUMED APPROX 0700. PT ALERT AND ORIENTED X4 WITH MILD FORGETFULNESS. DENIES SOA. C/O GENERALIZED PAIN THIS SHIFT. PAIN PUMP REFILLED. PRN AND SCHEDULED NARCS CONTINUED. VSS. PT UP WITH MIN ASSIST TO BSC AND WALKER. SIGNIFICANT AMOUNT OF WEAKNESS NOTED. BILLS PATENT. UOP ADEQUAT. IV ABT REMAINS IN POC. PT SPOUSE AT BEDSIDE MOST OF DAY. NO DISTRESS NOTED.
[2018-03-20 19:38] VITALS: BP 106/66
--- NOTE | 2018-03-20 21:53 | NUR ---
PT LAYING IN BED IN NAD. C/O PAIN THAT IS BEING MANAGED. STATES THAT SHE DOES NOT HAVE THE CONTROLLER TO HER INTERNAL PAIN PUMP THEREFORE IT IS NOT ACTIVATED. WILL TREAT WITH ORAL MEDS ORDERED. C/O ANXIETY AND TREATED PROMPTLY. DENIES OTHER NEEDS AND COMPLAINTS.
--- NOTE | 2018-03-21 03:10 | NUR ---
0245 - I WAS INFORMED THAT PT REQUESTED PAIN MEDICINE. I PULLED TWO OXY MG FROM THE PYXIS. WHEN I ARRIVED IN THE ROOM SHE WAS ASLEEP, SHE DID NOT AWAKEN TO MILD STIMULI, (SOFTLY CALING HER NAME OR SOFTLY RUBBING HER KNEE) THE PT HAD PREVIOUSLY INFORMED ME THAT SHE DID NOT WANT TO BE AWOKEN FOR PAIN MEDICINE. WILL GIVE PAIN MEDICINE WHEN SHE ROUSES.
[2018-03-21 05:25] VITALS: BP 128/71
[2018-03-21 07:09] LABS: MCH 24.1 pg (26.0-34.0); MCHC 32.4 g/dL (28.0-37.0); MCV 74.4 fL (80.0-100.0); RBC 3.76 mil/uL (4.20-5.00); RDW 19.1 % (10.5-14.5)
[2018-03-21 07:10] LABS: CALCIUM 8.8 mg/dL (8.5-10.1); CREATININE 0.6 mg/dL (0.6-1.0); MAGNESIUM 1.8 mg/dL (1.8-2.4); POTASSIUM 3.1 mmol/L (3.5-5.1)
[2018-03-21 07:12] LABS: HEMOGLOBIN 9.1 gm/dL (12.0-15.0); WBC 2.3 thou/uL (4.0-11.0)
[2018-03-21 07:28] VITALS: BP 138/79
[2018-03-21 11:55] VITALS: BP 132/75
[2018-03-21 15:45] VITALS: BP 110/57
--- NOTE | 2018-03-21 16:08 | NUR ---
Discussed with patient [facility] accepting and [facility] for respite if patient agreeable and comfortable with plan. Patient wants to know if [facility] has back up generator before commiting to transfer to [place]. Discussed also she needs to work with therapy to improve her PNA she is agreeable.
--- NOTE | 2018-03-21 17:31 | NUR ---
PT CARE ASSUMED APPROX 0700. PT TRASNFERRED TO SENIOR SUITES THIS SHIFT AFTER TELE DC'D AND LEVEL OF CARE ORDER CHANGED. PT AGREEABLE TO TRANSFER AND NOTIFIED SPOUSE OF ROOM CHANGE. PT ALERT AND ORIENTED X4 WITH MILD FORGETFULNESS. DENIES SOA ON 4-5L NC. REPORTS CHRONIC CONSTANT PAIN THAT SHE IN EBING MEDICATED FOR OFTEN ORDERS ALLOW. VSS. BILLS REMOVED THIS SHIFT. PT VOIDING WELL. UP TO BSC WITH MIN ASSIST AND WALKER. NO DISTRESS NOTED AT TIME OF TRANSFER.
--- NOTE | 2018-03-21 19:16 | NUR ---
PATIENT TRANSFERRED [facility] CCU/211, REPORT FROM [facility]. THIS PATIENT ON HOSPICE LIVES WITH . PATIENT HAS BREAST CANCER, NON-HODGKINS LYMPHOMA STAGE 4. ALSO SARCOIDOSIS, PATIENT HAS CANCER PAIN AND ANXIETY. PATIENT HAS PAIN PUMP RIGHT SIDE, FILLED YESTERDAY. PATIENT HAS SCHEDULED OXYCODONE 10 MG EVERY 4 HOURS, AND OXYCODONE SR SCHEDULED BID. PATIENT ON O2 AT 5 LITERS/NC. PATIENT UP WITH ASSIST X 1 WITH WALKER TO [facility]. PATIENT HAS LEFT UPER ARM IV IN PLACE. PATIENT MAY DISCHARGE TO [facility] TOMORROW. WILL CONTINUE TO MONITOR.
[2018-03-22 04:11] LABS: ADENOVIRUS Negative (Negative); INFLUENZA A Negative (Negative); INFLUENZA B Negative (Negative); METAPNEUMOVIRUS Negative (Negative); PARAINFLUENZA 1 Negative (Negative); PARAINFLUENZA 2 Negative (Negative); PARAINFLUENZA 3 Negative (Negative); RHINOVIRUS Negative (Negative); RSV A Negative (Negative); RSV B Negative (Negative)
--- NOTE | 2018-03-22 05:28 | NUR ---
PATIENT ALERT AND ORIENTED WITH PERIODS OF CONFUSION AND FORGETFULNESS. UP TO BEDSIDE COMMODE BY SELF/ O2 AT 5L. GETS SOB WITH EXERTION. C/O PAIN AND ANXIETY, MED GIVEN WITH GOOD RESULTS. IV PATENT. SLEPT OFF AND ON DURING NIGHT.
[2018-03-22 06:49] LABS: MCV 74.8 fL (80.0-100.0)
[2018-03-22 06:51] LABS: HEMATOCRIT 32.3 % (37.0-47.0); HEMOGLOBIN 10.1 gm/dL (12.0-15.0); MCH 23.5 pg (26.0-34.0); MCHC 31.4 g/dL (28.0-37.0); RBC 4.32 mil/uL (4.20-5.00); RDW 19.2 % (10.5-14.5)
[2018-03-22 07:01] LABS: WBC 1.9 thou/uL (4.0-11.0)
[2018-03-22 07:03] LABS: CREATININE 0.6 mg/dL (0.6-1.0)
[2018-03-22] MEDS ORDERED: CEFDINIR300 MG PO (12:18)
[2018-03-22] MEDS ORDERED: MUCINEX600 MG PO (12:19)
[2018-03-22] MEDS ORDERED: AZITHROMYCIN 2250 MG PO (12:19)
--- NOTE | 2018-03-22 12:22 | NUR ---
PATIENT CARE WAS ASSUMED AT 0715.PATIENT IS ALERT AND ORIENTED X4, CAN BE FORGETFUL.VITALS ARE STABLE.IV IS INTACT AND SALINE LOCKED.PT HAS O2 NC AT 5L.IS USUALLY 3.5 AT HOME.PT HAS SOME PAIN SCHEDULE MEDS WILL BE GIVEN IN THE MORNING.CALL LIGHT, PHONE, AND PERSONAL BELONGINGS ARE WITHIN REACH.WILL CONTINUE TO MONITOR THE PATIENT.
--- NOTE | 2018-03-22 13:45 | NUR ---
MET WITH PATIENT AND SPOUSE AT BEDSIDE. PLAN DC TODAY TO [facility] WITH [facility] RESPITE STAY. SPOUSE PLANS TO TRANSPORT AND HAS OXYGEN AVAIL FOR TRANSPORT TO FACILITY. CHART COPIED. FAXED ORDERS TO [facility] AND [facility] AND ALERTED OF DC TIMEFRAME TO DC TO MEET THEM AT FACILITY. ALERTED RN TO CALL REPORT. NO FURTHER NEEDS.
--- NOTE | 2018-03-22 13:57 | NUR ---
PATIENT WAS D/C TO [facility].PAPERWORK WAS GIVEN TO TO GIVE TO NURSE.PATIENT'S IV WAS TAKEN OUT, GAUZE WAS PLACED.PATIENT WAS GIVEN PAIN MEDS UPON DISCHARGE.TRANSPORTATION TOOK PATIENT TO HUSBANDS CAR.REPORT WAS CALLED TO NURSE AT [facility].
== END 2018-03-22 14:00 | DRG 871 ==
LOC: 2N 16:02 → SICU 16:02 → ENTRNSPT 03-22 13:35 → EDTRNSPTSTS 03-22 13:44 → SICU 03-22 14:00
PROVIDERS: Hospitalist; Nurse Practitioner Acute Care; Specialist; ADMIT Internal Medicine
DX: A41.9 Sepsis, unspecified organism (principal); J18.1 Lobar pneumonia, unspecified organism; D61.818 Other pancytopenia; C85.90 Non-Hodgkin lymphoma, unspecified, unspecified site; Z68.41 Body mass index [BMI] 40.0-44.9, adult; J44.0 Chronic obstructive pulmonary disease with (acute) lower respiratory infection; D46.9 Myelodysplastic syndrome, unspecified; I27.20 Pulmonary hypertension, unspecified; J45.909 Unspecified asthma, uncomplicated; G47.33 Obstructive sleep apnea (adult) (pediatric); K21.9 Gastro-esophageal reflux disease without esophagitis; F32.9 Major depressive disorder, single episode, unspecified; D86.9 Sarcoidosis, unspecified; E66.9 Obesity, unspecified; Z77.22 Contact with and (suspected) exposure to environmental tobacco smoke (acute) (chronic); F41.1 Generalized anxiety disorder; G89.29 Other chronic pain; Z66 Do not resuscitate; Z88.8 Allergy status to other drugs, medicaments and biological substances; Z85.3 Personal history of malignant neoplasm of breast; Z85.42 Personal history of malignant neoplasm of other parts of uterus; Z79.899 Other long term (current) drug therapy
CPT/HCPCS: 10081; 15002

== ENCOUNTER 2018-05-21 15:29 | Inpatient (IN) | payer OTHER ==
[~2018-05-21] VITALS: Ht 162.6 cm; Wt 105.2 kg
[~2018-05-21 15:29] MED LIST changes: +ALBUTEROL0.63 MG/3 INH; +AZITHROMYCIN 2250 MG PO; +CELEXA20 MG PO; +MS CONTIN 30 MG30 MG PO; +MUCINEX600 MG PO; +OMEPRAZOLE40 MG PO; +OXYCODONE HCL10 MG PO; +OXYCONTIN10 M1 PO; +POTASSIUM20 PO; +PROAIR HFA8.5 GM; +SYMBICORT160 MCG/4. INH
[2018-05-21 17:15] VITALS: BP 119/62
[2018-05-21] MEDS ORDERED: AUGMENTIN 875-1 EACH PO (18:43)
[2018-05-21] MEDS ORDERED: MS CONTIN15 MG PO (18:45)
[2018-05-21] MEDS ORDERED: PREDNISONE 10 M10 MG PO (18:46)
[2018-05-21] MEDS ORDERED: KLOR-CON 1010 MEQ PO (18:46)
[2018-05-21] MEDS ORDERED: ONDANSETRON HCL4 M2 PO (18:52)
[2018-05-21 19:14] VITALS: BP 102/61
--- NOTE | 2018-05-21 22:13 | NUR ---
22:12>called MARCO Perez regarding the request of patient's for the patient to have her pain medication and antianxiety for tonight. I informed MARCO Perez that patient had a total of 3xanax this morning as per bedside report given to me. MARCO Perez ordered to XANAX 1 mg po 1 time dose as needed for anxiety. She also said to put the order if needed only for tonight for OXYCODONE 10 mg 1 tablet for breakthrough pain under Dr Craig. Readback done and orders entered.
[2018-05-22 00:01] VITALS: BP 92/55
[2018-05-22 03:47] VITALS: BP 101/57
[2018-05-22 04:41] LABS: HEMATOCRIT 30.1 % (37.0-47.0); HEMOGLOBIN 9.8 gm/dL (12.0-15.0); MCH 24.9 pg (26.0-34.0); MCHC 32.6 g/dL (28.0-37.0); MCV 76.5 fL (80.0-100.0); RBC 3.93 mil/uL (4.20-5.00); RDW 19.8 % (10.5-14.5); WBC 4.5 thou/uL (4.0-11.0)
[2018-05-22 04:53] LABS: ALBUMIN 2.1 g/dL (3.4-5.0); CALCIUM 8.5 mg/dL (8.5-10.1); CREATININE 0.9 mg/dL (0.6-1.0); MAGNESIUM 1.7 mg/dL (1.8-2.4); POTASSIUM 3.2 mmol/L (3.5-5.1); TOTAL BILIRUBIN 0.8 mg/dL (<0.1-1.0)
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
[2018-05-22 07:45] VITALS: BP 94/46
[2018-05-22 11:35] VITALS: BP 92/61
--- NOTE | 2018-05-22 13:22 | NUR ---
Nutrition:admit with high heart rate and PNA vs accidental narcotic overdose. Hx lymphoma. Saw due to high risk screen for poor intake, weight loss. Pt has been on hospice care prior to admit. Weight hx indicates a 50# decline since october. BMI remains 40, class 3 extreme obesity. Appetite had been down but is reportedly improving. Ate nearly all of meals today. Does like to drink ensure at home, will offer once a day while admitted. Consider low risk.
--- NOTE | 2018-05-22 15:14 | NUR ---
ASSUMED CARE OF PT AT 0700. PT ALERT ORIENTED TO SELF AND PLACE, CONFUSED. PT HAD PAIN THAT WAS MANAGED WITH MEDICATION. PT WAS TEARFUL AND STATED SHE JUST WANTED TO GO HOME. DR. MOE NOTIFIED OF PT'S WISHES. CASE MANAGEMENT CONSULTED. I ALSO SPOKE TO HOWARD TO LET HER KNOW ABOUT CONSULT AND PT'S SITUATION. WILL CONT WITH POC.
[2018-05-22 15:20] VITALS: BP 84/65
[2018-05-22] MEDS ORDERED: AUGMENTIN 875-1 EACH PO (16:00)
[2018-05-22 16:33] VITALS: BP 84/65
--- NOTE | 2018-05-22 16:40 | NUR ---
CM ASSESSMENT: CASE OPENED FOR DC PLANNING. CLINICAL INFO REVIEWED. PT KNOWN TO CM FROM PREVIOUS ADMITS. MET WITH PT AND SPOUSE. THEY CONFIRM LIVING TOGETHER IN HOUSE, ON SERVICES WITH [facility] AND HAVE ALL NEED DME IN HOME. TRILOGY, HOSPITAL BED, WALKER, W/C, COMMODE, O2 AND PORTABLE O2. SPOUSE INDICATES PT HAS FALLEN A COUPLE TIMES. PT COMPLAINS TRUCK IS THEIR ONLY VEHICLE AND HARD FOR HER TO GET AND OUT AND FELL. SPOUSE ALSO INDICATES THERE WAS CONFUSION ON [employer] DOSING AND HE WAS UNAWARE PT HAD TAKEN DOSE WHEN HE OFFERRED DOSE. CALLED [facility] INTAKE AND VERIFIED PT REMAINS ON SERVICE. PT HAS COMMERCIAL INSURANCE SO DOES NOT REQUIRE REVOKE. PT AND SPOUSE INTEND TO RESUME [facility] SERVICES AT [place] AND WANT TO DC TODAY. PT WOULD NOT WORK WITH P.T. TODAY, BUT DID GET UP FROM CHAIR ON OWN AND WALKED TO BATHROOM ON OWN. SPOUSE FEELS COMFORTABLE MEETING PT'S NEEDS AT HOME AND INDICATES HE WILL KEEP HER MEDS AND GIVE THEM TO HER TO AVOID CONFUSION OF DOSING. PT'S SON WILL PROVIDE TRANSPORT HOME TODAY HAS CAR PT CAN GET IN AND OUT OF EASIER. UPDATE TO DR. MOE AND WILL DC TO HOME WITH RESUMPTION OF HOSPICE TODAY. UPDATE TO RN AND [facility] AND WILL FAX DC SUMMARY WHEN AVAILABLE TO [facility].
== END 2018-05-22 17:43 | disposition hospice, home (50) | DRG 177 ==
LOC: 2N 15:29 → ENTRNSPT 05-22 17:28 → 2N 05-22 17:43
PROVIDERS: ADMIT Internal Medicine
DX: J15.6 Pneumonia due to other Gram-negative bacteria (principal); G92 Toxic encephalopathy; J44.0 Chronic obstructive pulmonary disease with (acute) lower respiratory infection; J96.10 Chronic respiratory failure, unspecified whether with hypoxia or hypercapnia; Z79.899 Other long term (current) drug therapy; D86.9 Sarcoidosis, unspecified; J45.909 Unspecified asthma, uncomplicated; K21.9 Gastro-esophageal reflux disease without esophagitis; R41.0 Disorientation, unspecified; F32.9 Major depressive disorder, single episode, unspecified; D46.9 Myelodysplastic syndrome, unspecified; F41.0 Panic disorder [episodic paroxysmal anxiety]; R00.0 Tachycardia, unspecified; Z88.8 Allergy status to other drugs, medicaments and biological substances; Z79.2 Long term (current) use of antibiotics
CPT/HCPCS: 10081; 10194